=== PATIENT | female | born 1935 | race Caucasian/White ===

== ENCOUNTER 2016-12-10 08:43 | Emergency (ER) | END 2016-12-10 12:22 | disposition home or self-care (01) | DX: B02.9 Zoster without complications (principal) ==

== ENCOUNTER 2016-12-14 09:12 | Emergency (ER) | payer OTHER ==
[~2016-12-14] VITALS: Ht 160 cm; Wt 65.0 kg
[~2016-12-14 09:12] MED LIST: DOCU-144 PO; FAMO-18 PO; GABA300C16 PO
[2016-12-14 09:21] VITALS: Ht 160 cm; Wt 65.0 kg
[2016-12-14] MEDS ORDERED: HYDR-906 PO (10:32)
[2016-12-14] MEDS ORDERED: CEPH-443 PO (10:32)
[2016-12-14] MEDS ORDERED: ACYC800T57 PO (10:32)
--- NOTE | 2016-12-14 11:03 | ERD ---
ER Documentation Chief Complaint Date/Time DATE: 12/14/16 TIME: 10:55 Chief Complaint RASH ON BACK AND RADIATES TO HER BREAST HPI This is an 81-year-old female brought into the ER by daughter for evaluation of her rash. Patient states on 11/25/2016 she developed a painful and pruritic rash to mid upper back that spread to her right breast. Patient describes pain as burning sensation. Patient was seen previously by her primary care provider who prescribed her acyclovir cream and Celeste. He patient states then she was seen here 2 days ago and was prescribed Neurontin. Patient denies any discharge from lesions. No fevers or chills. ROS All systems reviewed and are negative except as per history of present illness. Medications Home Meds Active Scripts Hydrocodone/Acetaminophen (Celeste 5-325 Tablet) 1 Each Tablet, 1 TAB PO Q6H Y for PAIN, #7 TAB Prov:ISAURA ALCANTAR NP 12/14/16 Cephalexin* (Keflex*) 500 Mg Capsule, 500 MG PO QID for 5 Days, CAP Prov:ISAURA ALCANTAR NP 12/14/16 Acyclovir* (Zovirax*) 800 Mg Tablet, 800 MG PO 5 TIMES DAILY for 7 Days, TAB Prov:ISAURA ALCANTAR NP 12/14/16 Gabapentin* (Gabapentin*) 300 Mg Capsule, 300 MG PO QAM, #30 CAP Take one tab on day 1, take BID on day 2, then TID thereafter Prov:JENS TERRAZAS MD 12/10/16 Reported Medications Famotidine* (Pepcid*) 20 Mg Tablet, 20 MG PO DAILY, TAB 11/16/14 Docusate Sodium* (Colace*) 100 Mg Capsule, 100 MG PO QHS, CAP 11/16/14 Allergies Allergies: Coded Allergies: No Known Allergy (Verified , 11/21/14) PMhx/Soc History of Surgery: Yes (TUBAL LIGATION) Anesthesia Reaction: No Hx Neurological Disorder: Yes ("DIZZINESS") Hx Respiratory Disorders: No Hx Cardiac Disorders: No Hx Psychiatric Problems: No Hx Miscellaneous Medical Probl: No Hx Alcohol Use: No Hx Substance Use: No Hx Tobacco Use: No Smoking Status: Never smoker Physical Exam Vitals Vital Signs Date Time Temp Pulse Resp B/P Pulse Ox O2 Delivery O2 Flow Rate FiO2 12/14/16 09:21 97.8 89 18 136/60 97 Physical Exam Const: No acute distress, alert, oriented to person place and time. Head: Atraumatic Eyes: Normal Conjunctiva ENT: Normal External Ears, Nose and Mouth. Neck: Full range of motion..~ No meningismus. Resp: Clear to auscultation bilaterally Cardio: Regular rate and rhythm, no murmurs Abd: Soft, non tender, non distended. Normal bowel sounds Skin: Grouped erythematous vesicles crusted over to mid upper back that has spread to right breast. Does not cross midline. Erythematous halo surrounding vesicles. No discharge. Back: No midline or flank tenderness Ext: No cyanosis, or edema Neur: Awake and alert Psych: Normal Mood and Affect Procedures/MDM ED COURSE: The patient was stable throughout ED course. I kept the patient and/or family informed of laboratory and diagnostic imaging results throughout the ED course. MDM: 81-year-old female presents emergency department for evaluation of rash. Patient states she noticed the rash about 3 weeks ago. Was previously treated for shingles by her primary care provider with acyclovir cream and Celeste for pain. Was seen here 4 days ago and was given prescription for Neurontin for pain. Patient continues to have pain however rash to appears to have crusted over. Physical exam consistent with herpes zoster infection. No fevers or chills. Differential diagnosis includes but not limited to herpes zoster, bacterial superinfection, eczema, allergic dermatitis, contact dermatitis, insect bite, atrophic dermatitis and fungal infection. Patient likely has herpes zoster with possible bacterial superinfection. Patient will be treated for both. Patient is appropriate for outpatient management will be given prescription for acyclovir and Keflex. Instructed patient and daughter to follow-up with primary care provider in the next 24-48 hours for reassessment and additional management. Return to ED for any high fever, chest pain, difficulty breathing, shortness breath, wheezing, vomiting, diarrhea, abdominal pain or any new or worsening symptoms. Patient and patient's daughter verbalizes understanding. All questions answered at discharge. Departure Diagnosis: Primary Impression: Herpes zoster Herpes zoster complications: without complications Qualified Code: B02.9 - Herpes zoster without complication Condition: Stable Patient Instructions: Shingles (Herpes Zoster) [facility] Usted se franco hecho un examen mdico de control que le indica que no est en vane condicin que requiera tratamiento urgente en el Departamento de Emergencia. Un estudio ms profundo y el tratamiento de bright condicin pueden esperar sin ningn riesgo hasta que usted sea atendida/o en el consultorio de bright mdico o vane cl christiana. Es responsabilidad suya arreglar vane rosalina para el seguimiento del mary alice. MANEJO DE CONDICIONES NO URGENTES EN EL FUTURO 1) Si usted tiene un mdico de atencin primaria: Usted debera llamar a bright mdico de atencin primaria antes de venir al departamento de emergencia. Despus de las horas de consultorio, bright doctor o bright asociado/a est disponible por telfono. El mdico o enfermero de danilo en el servicio telefnico puede asesorarle por bonita medio para atender el problema, o mary alice contrario se puede programar vane rosalina. 2) Si usted no tiene un mdico de atencin primaria: Llame al mdico o clnica de referencia que aparece abajo kirill las horas de consultorio para hacer vane rosalina para que le vean. CLINICAS: [facility] [phone] [facility] [facility] [phone] [address] [facility]. [facility] [phone] [facility] [place] [id number] [phone] [facility] [place] [id number] [phone] [facility]. [phone] [facility] () Usted se franco hecho un examen mdico de control que le indica que no est en vane condicin que requiera tratamiento urgente en el Departamento de Emergencia. Un estudio ms profundo y el tratamiento de bright condicin pueden esperar sin ningn riesgo hasta que usted sea atendida/o en el consultorio de bright mdico o vane cl christiana. Es responsabilidad suya arreglar vane rosalina para el seguimiento del mary alice. MANEJO DE CONDICIONES NO URGENTES EN EL FUTURO 1) Si usted tiene un mdico de atencin primaria: Usted debera llamar a bright mdico de atencin primaria antes de venir al departamento de emergencia. Despus de las horas de consultorio, bright doctor o bright asociado/a est disponible por telfono. El mdico o enfermero de danilo en el servicio telefnico puede asesorarle por bonita medio para atender el problema, o mary alice contrario se puede programar vane rosalina. 2) Si usted no tiene un mdico de atencin primaria: Llame al mdico o condado institucions de referencia que aparece abajo kirill las horas de consultorio para hacer vane rosalina para que le vean. SI USTED NO PUEDE PAGAR PARA PETER UN MEDICO puede ir a: [facility] [address] [place] [address] [facility] [address] [place] [address] [facility] [address] [place] [address] [facility]A [facility] [address] [place], [place] [id number] Additional Instructions: Llame al doctor MAANA y taras vane ROSALINA PARA DENTRO DE 2-3 NOLASCO.Dgale a la secretaria que nosotros le instruimos hacer esta rosalina.Avise o llame si bright condicin se empeora antes de la rosalina. Regresa aqui si peor o no mejor. Return to ED for any high fever, chest pain, difficulty breathing, shortness breath, wheezing, vomiting, diarrhea, abdominal pain or any new or worsening symptoms. ISAURA ALCANTAR NP Dec 14, 2016 11:03
== END 2016-12-14 11:00 | disposition home or self-care (01) ==
LOC: FTE 09:12
DX: B02.9 Zoster without complications (principal)
CPT/HCPCS: 99284

== ENCOUNTER 2017-01-08 08:39 | Inpatient (IN) | payer OTHER ==
[~2017-01-08] VITALS: Ht 162.6 cm; Wt 68.2 kg
[~2017-01-08 08:39] MED LIST changes: +ACYC800T57 PO; +CEPH-443 PO; +HYDR-906 PO
[2017-01-08 08:58] VITALS: Ht 162.6 cm; Wt 68.2 kg
[2017-01-08] MEDS ORDERED: AZITHROMYCIN 250 MG TAB PO ONE (09:30)
[2017-01-08] MEDS ORDERED: SOD CHLORIDE 0.9% 1,000 ML IV STA (09:31)
[2017-01-08] MEDS ORDERED: SODIUM CHLORIDE 0.9% 1L BAG IV* STA (09:32)
--- NOTE | 2017-01-08 09:53 | RADRPT ---
PROCEDURE: XR Chest. CLINICAL INDICATION: Cough. TECHNIQUE: Single frontal view of the chest was obtained. COMPARISON: 11/16/2014 FINDINGS: There is unchanging cardiomegaly with slight shift of the mediastinum to the right secondary to amadou ed elevation of the left hemidiaphragm which appears longstanding. There is calcification in the tho racic aorta. There is compressive atelectasis at the left lung base. No focal airspace consolidati on is seen. The osseous structures appear unremarkable. IMPRESSION: 1. Cardiomegaly and aortic atherosclerosis. 2. Vascular crowding at the left lung base. 3. No confluent airspace process seen. 4. Longstanding elevation of the left hemidiaphragm. RPTAT: AACC Physician Thomas Date Time Electronically viewed and signed by Milan Hampton Physician on 01/08/2017 09:53 /
[2017-01-08 09:59] LABS: ADD SCAN DIFF NO
[2017-01-08] MEDS ORDERED: DILTIAZEM 25 MG INJ IV ONE (10:00)
[2017-01-08 10:04] LABS: BASOPHILS % 0.4 % (0.0-2.0); EOSINOPHILS # 0.2 10^3/ul (0.0-0.5); EOSINOPHILS % 2.3 % (0.0-7.0); HEMATOCRIT 42.7 % (37.0-47.0); HEMOGLOBIN 13.5 g/dl (12.0-16.0); LYMPHOCYTES # 2.3 10^3/ul (0.8-2.9); LYMPHOCYTES % 25.4 % (15.0-51.0); MEAN CORPUSCULAR HEMOGLOBIN 28.8 pg (29.0-33.0); MEAN CORPUSCULAR HGB CONC 31.6 g/dl (32.0-37.0); MONOCYTE # 0.4 10^3/ul (0.3-0.9); MONOCYTES % 4.5 % (0.0-11.0); NEUTROPHIL # 6.1 10^3/ul (1.6-7.5); NEUTROPHILS % 67.1 % (39.0-77.0); PLATELET COUNT 286 10^3/UL (140-415); RED BLOOD COUNT 4.69 10^6/ul (4.20-5.40); RED CELL DISTRIBUTION WIDTH 13.2 % (11.5-14.5); WHITE BLOOD COUNT 9.2 10^3/ul (4.8-10.8)
[2017-01-08 10:26] LABS: INR 0.95; PARTIAL THROMBOPLASTIN TIME 29.3 Sec (25.0-35.0); PROTIME 12.7 Sec (12.2-14.2)
[2017-01-08 10:27] LABS: CHLORIDE 102 mmol/L (97-110); POTASSIUM 3.9 mmol/L (3.5-5.1); SODIUM 141 mmol/L (135-144)
[2017-01-08 10:29] LABS: D-DIMER 1524.65 ng/ml (<460)
[2017-01-08 10:30] LABS: ANION GAP 16 (8-16); CARBON DIOXIDE 27 mmol/L (21-31); CREATININE 0.54 mg/dl (0.44-1.00)
[2017-01-08 10:31] LABS: BLOOD UREA NITROGEN 16 mg/dl (7-20); CALCIUM 8.6 mg/dl (8.4-10.2); GLUCOSE 127 mg/dl (70-220)
[2017-01-08 10:48] LABS: TROPONIN-I < 0.012 ng/ml (0.00-0.12)
[2017-01-08] MEDS ORDERED: ONDANSETRON 4 MG INJ IV PRN (12:00)
[2017-01-08] MEDS ORDERED: ACETAMINOPHEN 325 MG TAB PO PRN (12:00)
[2017-01-08] MEDS ORDERED: SOD CHLORIDE 0.9% 100 ML ONE (12:13)
[2017-01-08] MEDS ORDERED: IODIXANOL LOCM 100 ML BTL ONE (12:13)
[2017-01-08] MEDS ORDERED: IODIXANOL LOCM 50 ML BTL ONE (12:14)
--- NOTE | 2017-01-08 13:01 | RADRPT ---
PROCEDURE: CT angiogram of the chest with contrast. CLINICAL INDICATION: Shortness of breath TECHNIQUE: CT scan of the chest with contrast was performed on a multidetector high-resolution CT scan. The patient was scanned following the uncomplicated intravenous administration of 115 ml of V isipaque 320. Coronal and sagittal reformatted images were obtained from the axial source images. [facility] CT angiogram of the chest with contrast protocols were performed. The total exam CTDI equals 11.04 mGy and the total exam DLP equals 455.35 mGy-cm. One or more of the following dose reduction techniques were used: - Automated exposure control. - Adjustment of the mA and/or kV according to patient size. Use of iterative reconstruction technique. 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 Extending into the left hemithorax under the left hemidiaphragm is sto mach large bowel and abdominal fat. The pulmonary outflow tract, right left main pulmonary arteries and right and left interlobar or pulmonary arteries are unremarkable without central pulmonary embo li. There is mild atherosclerotic vascular disease of the thoracic and proximal abdominal aorta wit hout aneurysm dissection or periaortic fluid collections. The brachial cephalic artery and right le ft common carotid arteries and vertebral arteries appear unremarkable. Mild atherosclerotic vascula r disease of the right left subclavian arteries which are otherwise unremarkable. There is no evidence of mediastinal hilar or axillary lymphadenopathy. There is right hilar calcifi ed lymph node. No evidence of pleural effusions or pneumothoraces. The heart is within normal limi ts in size without pericardial effusion. There is coronary artery disease present. There is atelec tasis involving the right middle lobe, lingula of the left upper lobe and both lower lobes. No evid ence of pulmonary nodules bilaterally. There is bilateral moderate hydronephrosis and recommend cli nical correlation. The remainder of the images of the upper abdomen are unremarkable. There are de generative changes of the thoracic and upper lumbar spine. IMPRESSION: 1. No evidence of central pulmonary emboli. 2. Atherosclerotic vascular disease of the aorta without aneurysm dissection or periaortic fluid co llections. 3. 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 4. Right middle lobe, right lower lobe, lingula left upper lobe and both lower lobes. No evidence of acute infiltrates or pulmonary nodules. 5. No evidence of thoracic lymphadenopathy, effusions or pneumothorax. 6. Bilateral moderate hydronephrosis and recommend clinical correlation. RPTAT:AAJJ Physician Cr Date Time Electronically viewed and signed by Miki Andersen Physician on 01/08/2017 13:01 BM/
--- NOTE | 2017-01-08 13:46 | ERA ---
ER Documentation Chief Complaint Date/Time DATE: 01/08/17 TIME: 13:44 Chief Complaint FLU-LIKE SX X4 DAYS HPI Patient is a 81-year-old female with no medical problems who presents with breath. The patient had fever and cough for about 1 week. She has not taken any medicines. She does feel dizzy as well. She does not know the name of her primary doctor. Upon review of old medical record she does have previous visits to the emergency department. ROS All systems reviewed and are negative except as per history of present illness. Medications Home Meds Active Scripts Hydrocodone/Acetaminophen ([place] 5-325 Tablet) 1 Each Tablet, 1 TAB PO Q6H Y for PAIN, #7 TAB Prov:ISAURA ALCANTAR NP 12/14/16 Gabapentin* (Gabapentin*) 300 Mg Capsule, 300 MG PO QAM, #30 CAP Take one tab on day 1, take BID on day 2, then TID thereafter Prov:JENS TERRAZAS MD 12/10/16 Reported Medications Famotidine* (Pepcid*) 20 Mg Tablet, 20 MG PO DAILY, TAB 11/16/14 Docusate Sodium* (Colace*) 100 Mg Capsule, 100 MG PO QHS, CAP 11/16/14 Discontinued Scripts Cephalexin* (Keflex*) 500 Mg Capsule, 500 MG PO QID for 5 Days, CAP Prov:ISAURA ALCANTAR NP 12/14/16 Acyclovir* (Zovirax*) 800 Mg Tablet, 800 MG PO 5 TIMES DAILY for 7 Days, TAB Prov:ISAURA ALCANTAR NP 12/14/16 Allergies Allergies: Coded Allergies: No Known Allergy (Verified , 01/08/17) PMhx/Soc History of Surgery: Yes (TUBAL LIGATION) Anesthesia Reaction: No Hx Neurological Disorder: Yes ("DIZZINESS") Hx Respiratory Disorders: No Hx Cardiac Disorders: Yes (htn) Hx Psychiatric Problems: No Hx Miscellaneous Medical Probl: Yes (dm) Hx Alcohol Use: No Hx Substance Use: No Hx Tobacco Use: No Smoking Status: Never smoker FmHx Family History: No diabetes Physical Exam Vitals Vital Signs Date Time Temp Pulse Resp B/P Pulse Ox O2 Delivery O2 Flow Rate FiO2 01/08/17 12:52 81 20 123/59 99 Nasal Cannula 2.0 01/08/17 10:05 89 20 106/57 99 Nasal Cannula 01/08/17 08:58 97.8 120 24 171/121 92 Physical Exam Const: Mild distress Head: Atraumatic Eyes: Normal Conjunctiva ENT: Normal External Ears, Nose and Mouth. Neck: Full range of motion..~ No meningismus. Resp: Clear to auscultation bilaterally Cardio: Tachycardic rate with irregular rhythm Abd: Soft, non tender, non distended. Normal bowel sounds Skin: No petechiae or rashes Back: No midline or flank tenderness Ext: No cyanosis, or edema Neur: Awake and alert Psych: Normal Mood and Affect Result Diagram: 01/08/17 0940 01/08/17 0940 Results 24 hrs Laboratory Tests Test 01/08/17 09:40 01/08/17 11:40 Activated Partial Thromboplast Time 29.3Sec Anion Gap 16 Basophils # 0.010^3/ul Basophils % 0.4% Blood Urea Nitrogen 16mg/dl Calcium Level 8.6mg/dl Carbon Dioxide Level 27mmol/L Chloride Level 102mmol/L Creatinine 0.54mg/dl D-Dimer 1524.65ng/ml D-Dimer Comment Eosinophils # 0.210^3/ul Eosinophils % 2.3% Glucose Level 127mg/dl Hematocrit 42.7% Hemoglobin 13.5g/dl INR International Normalized Ratio 0.95 Lactic Acid Level 2.8mmol/L 1.0mmol/L Lymphocytes # 2.310^3/ul Lymphocytes % 25.4% Mean Corpuscular Hemoglobin 28.8pg Mean Corpuscular Hemoglobin Concent 31.6g/dl Mean Corpuscular Volume 91.0fl Mean Platelet Volume 9.0fl Monocytes # 0.410^3/ul Monocytes % 4.5% Neutrophils # 6.110^3/ul Neutrophils % 67.1% Nucleated Red Blood Cells # 0.010^3/ul Nucleated Red Blood Cells % 0.0/100WBC Platelet Count 91729^3/UL Potassium Level 3.9mmol/L Prothrombin Time 12.7Sec Prothrombin Time Ratio 1.0 Red Blood Count 4.6910^6/ul Red Cell Distribution Width 13.2% Sodium Level 141mmol/L Troponin I < 0.012ng/ml White Blood Count 9.210^3/ul Current Medications Medications (Trade) Dose Ordered Sig/Jennifer Route PRN Reason Start Time Stop Time Status Last Admin Dose Admin Azithromycin 500 mg 500 mg ONCE ONCE PO 01/08/17 09:30 01/08/17 09:31 DC 01/08/17 09:49 Sodium Chloride (NS) 1,000 ml @ 1,000 mls/hr Q1H STAT IV 01/08/17 09:31 01/08/17 09:32 DC Diltiazem HCl (Cardizem Iv) 10 mg ONCE ONCE IV 01/08/17 10:00 01/08/17 10:01 DC 01/08/17 09:52 Sodium Chloride (NS) 2,110 ml BOLUS OVER 2 HOURS STAT IV* 01/08/17 09:32 01/08/17 09:33 DC 01/08/17 09:50 Ondansetron HCl (Zofran Inj) 4 mg ER BRIDGE PRN IV NAUSEA AND/OR VOMITING 01/08/17 12:00 01/09/17 11:59 Acetaminophen (Tylenol Tab) 650 mg ER BRIDGE PRN PO MILD PAIN/FEVER 01/08/17 12:00 01/09/17 11:59 IV Flush 10 ml 10 ml STK-MED ONCE .ROUTE 01/08/17 12:13 01/08/17 12:14 DC 01/08/17 12:35 Sodium Chloride (NS) 100 ml @ ud STK-MED ONCE .ROUTE 01/08/17 12:13 01/08/17 12:14 DC 01/08/17 12:35 Iodixanol (Visipaque Locm) 100 ml STK-MED ONCE .ROUTE 01/08/17 12:13 01/08/17 12:14 DC 01/08/17 12:42 Iodixanol (Visipaque Locm) 50 ml STK-MED ONCE .ROUTE 01/08/17 12:14 01/08/17 12:15 DC 01/08/17 12:44 Procedures/MDM EKG read by me: Rate/Rhythm: Irregular rhythm with tachycardic rate Intervals: Normal Impression: Atrial fibrillation without ischemia CT shows no obvious pneumonia per radiology. CTA of the chest shows no pneumonia or pulmonary embolism or aortic dissection per radiology. Patient is a 81-year-old female presents with acute rapid atrial fibrillation. The patient was given fluids and diltiazem and her heart rate has improved. I spoke with Dr. Abarca for admission of the patient has had physicians IPA. The patient will be admitted to a telemetry bed. At this point there is no sign of infection and I doubt sepsis. Her initial lactic acid was 2.8 but repeat was 1.0. Critical Care: Time: 35 minutes excluding all billable procedures. Treatments/Evaluations: Close monitoring and treatment of unstable vital signs, cardiorespiratory, and neurologic status, while maintaining tight balance of fluid, respiratory, and cardiac interventions. Departure Diagnosis: Primary Impression: Rapid atrial fibrillation Additional Impression: SOB (shortness of breath) Condition: AURE King MD Jan 08, 2017 13:45
[2017-01-08 14:30] VITALS: TEMP 97.9
[2017-01-08 17:37] VITALS: BP 130/72; PULSE 78; RESP 19
[2017-01-08] MEDS ORDERED: ASPIRIN 325 MG TAB PO ONE (18:00)
[2017-01-08 18:19] VITALS: PULSE 96
[2017-01-08 19:49] VITALS: BP 125/59; RESP 16
--- NOTE | 2017-01-08 20:14 | HP ---
Date/Time of Note Date/Time of Note DATE: 01/08/17 TIME: 20:07 Assessment/Plan VTE Prophylaxis VTE Prophylaxis Intervention: other Lines/Catheters IV Catheter Type (from Nrs): Saline Lock Urinary Cath still in place: No Assessment/Plan Assessment/Plan Rapid atrial fibrillation - cardiology consult - Dr Orozco Shortness of BREATH - on o2 2 lnc, feels better. HPI/ROS Admit Date/Time Admit Date/Time Jan 08, 2017 at 11:46 Hx of Present Illness FLU-LIKE SX X4 DAYS HPI Patient is a 81-year-old female with no medical problems who presents with breath. The patient had fever and cough for about 1 week. She has not taken any medicines. She does feel dizzy as well. She does not know the name of her primary doctor. Upon review of old medical record she does have previous visits to the emergency department. ROS All systems reviewed and are negative except as per history of present illness. Medications Home Meds Active Scripts Hydrocodone/Acetaminophen ([place]va 5-325 Tablet) 1 Each Tablet, 1 TAB PO Q6H Y for PAIN, #7 TAB Prov:ISAURA ALCANTAR NP 12/14/16 Gabapentin* (Gabapentin*) 300 Mg Capsule, 300 MG PO QAM, #30 CAP Take one tab on day 1, take BID on day 2, then TID thereafter Prov:JENS TERRAZAS MD 12/10/16 Reported Medications Famotidine* (Pepcid*) 20 Mg Tablet, 20 MG PO DAILY, TAB 11/16/14 Docusate Sodium* (Colace*) 100 Mg Capsule, 100 MG PO QHS, CAP 11/16/14 Discontinued Scripts Cephalexin* (Keflex*) 500 Mg Capsule, 500 MG PO QID for 5 Days, CAP Prov:ISAURA ALCANTAR NP 12/14/16 Acyclovir* (Zovirax*) 800 Mg Tablet, 800 MG PO 5 TIMES DAILY for 7 Days, TAB Prov:ISAURA ALCANTAR NP 12/14/16 Allergies Allergies: Coded Allergies: No Known Allergy (Verified , 01/08/17) PMhx/Soc History of Surgery: Yes (TUBAL LIGATION) Anesthesia Reaction: No Hx Neurological Disorder: Yes ("DIZZINESS") Hx Respiratory Disorders: No Hx Cardiac Disorders: Yes (htn) Hx Psychiatric Problems: No Hx Miscellaneous Medical Probl: Yes (dm) Hx Alcohol Use: No Hx Substance Use: No Hx Tobacco Use: No Smoking Status: Never smoker FmHx Family History: No diabetes PMH/Family/Social Social History Smoking Status: Former smoker Exam/Review of Systems Vital Signs Vitals Vital Signs Date Time Temp Pulse Resp B/P Pulse Ox O2 Delivery O2 Flow Rate FiO2 01/08/17 19:49 98.6 79 16 125/59 93 01/08/17 17:56 Nasal Cannula 2.0 Exam Constitutional: alert, oriented, well developed Psych: nl mood/affect Head: atraumatic Eyes: EOMI, PERRL, nl sclera ENMT: nl external ears & nose Neck: non-tender Respiratory: clear to auscultation Cardiovascular: nl pulses Gastrointestinal: non-tender, soft Musculoskeletal: nl extremities to inspection Neurological: nl mental status, nl speech Skin: nl turgor Lymph: nontender Labs Result Diagram: 01/08/17 0940 01/08/17 0940 Medications Medications Current Medications Procedures Procedures EKG read by me: Rate/Rhythm: Irregular rhythm with tachycardic rate Intervals: Normal Impression: Atrial fibrillation without ischemia CT shows no obvious pneumonia per radiology. CTA of the chest shows no pneumonia or pulmonary embolism or aortic dissection per radiology. LUIS MANUEL RAMIREZ Jan 08, 2017 20:14
[2017-01-08 20:17] VITALS: PULSE 77
[2017-01-08] MEDS ORDERED: HYDROCODONE/APAP (5/325) TAB PO PRN (20:30)
[2017-01-08 20:41] LABS: CK-MB 1.88 ng/ml (0.0-2.4)
[2017-01-08 20:44] LABS: TROPONIN-I 0.043 ng/ml (0.00-0.12)
[2017-01-08] MEDS: GABAPENTIN 300 MG CAP PO SCH (21:36)
[2017-01-08] MEDS: FAMOTIDINE 20 MG TAB PO SCH (21:37)
[2017-01-08] MEDS: DOCUSATE SODIUM 100 MG CAP PO SCH (21:37)
[2017-01-08] MEDS: METOPROLOL 25 MG TAB PO SCH (21:37)
[2017-01-08 22:41] LABS: CK-MB 1.83 ng/ml (0.0-2.4)
[2017-01-08 22:44] LABS: TROPONIN-I 0.038 ng/ml (0.00-0.12)
[2017-01-08 23:49] VITALS: BP 122/57; RESP 16
[2017-01-09] VITALS (11 sets, daily range): BP systolic 117–131; BP diastolic 57–79; PULSE 66–91; RESP 20–22
[2017-01-09 07:57] LABS: ADD SCAN DIFF NO
[2017-01-09 08:18] LABS: BASOPHILS % 0.5 % (0.0-2.0); EOSINOPHILS # 0.2 10^3/ul (0.0-0.5); EOSINOPHILS % 2.7 % (0.0-7.0); HEMATOCRIT 37.4 % (37.0-47.0); HEMOGLOBIN 11.4 g/dl (12.0-16.0); LYMPHOCYTES # 2.3 10^3/ul (0.8-2.9); LYMPHOCYTES % 27.2 % (15.0-51.0); MEAN CORPUSCULAR HGB CONC 30.5 g/dl (32.0-37.0); MEAN CORPUSCULAR VOLUME 95.2 fl (82.0-101.0); MONOCYTE # 0.6 10^3/ul (0.3-0.9); MONOCYTES % 7.4 % (0.0-11.0); NEUTROPHIL # 5.1 10^3/ul (1.6-7.5); NEUTROPHILS % 61.8 % (39.0-77.0); PLATELET COUNT 233 10^3/UL (140-415); RED BLOOD COUNT 3.93 10^6/ul (4.20-5.40); RED CELL DISTRIBUTION WIDTH 13.2 % (11.5-14.5); WHITE BLOOD COUNT 8.3 10^3/ul (4.8-10.8)
[2017-01-09] MEDS: FAMOTIDINE 20 MG TAB PO SCH (08:52)
[2017-01-09] MEDS: GABAPENTIN 300 MG CAP PO SCH (08:52)
[2017-01-09] MEDS: METOPROLOL 25 MG TAB PO SCH ×2 (08:53→21:26)
[2017-01-09] MEDS ORDERED: ENOXAPARIN 40 MG/0.4 ML SYG SC SCH (09:00)
--- NOTE | 2017-01-09 12:18 | RADRPT ---
Echocardiogram Report Patient Name: MARIA M NOBLES Gender: Female Date: 1935 Study Date: 09-Jan-2017 Field Sales Executive: Yamileth Marie RDCS Location: 520 Ref. Physician: AYDE GALE Quality: Technically Difficult Study Procedures: Transthoracic echocardiogram with complete 2D, M-Mode, and doppler examination. Indications: Atrial Fibrillation with RVR. 2D/M Mode Doppler Measurement Value Normal Ranges Measurement Value Normal Ranges LVIDd 2D 4.7 3.5 - 5.6 cm AV Peak Reinier 1.0 m/sec LVIDs 2D 2.8 2.1 - 4.1 cm AV Peak PG 4.1 mmHg LVPWd 2D 0.9 0.6 - 1.1 cm LVOT Peak Reinier 0.8 m/sec IVSd 2D 0.9 0.6 - 1.1 cm LVOT Peak PG 2.6 mmHg AoR Diam 2D 2.7 2.0 - 3.7 cm MV E Peak Reinier 0.6 m/sec EDV 2D 102.5 cm3 MV A Peak Reinier 0.7 m/sec ESV 2D 22.0 cm3 MV E/A 0.9 LA Dimen 2D 3.4 2.3 - 4.0 cm MV Decel Time 182 msec MV Decel Hendry 3 MV E/A 0.9 TR Peak Reinier 2.8 m/sec TR Peak PG 31.4 mmHg RVSP 34.0 mmHg Findings Left Ventricle: Normal left ventricular systolic function. Normal left ventricular cavity size. Normal left ventricular wall thickness. Ejection fraction is visually estimated at 60 %. Tissue Doppler/Mitral Doppler indices are consistent with impaired relaxation (Stage I diastolic dysfunction). Right Ventricle: Normal right ventricular size. Normal right ventricular systolic function. Left Atrium: The left atrium is normal in size. Right Atrium: The right atrium is normal in size. Mitral Valve: Normal appearance and function of the mitral valve with trace physiologic regurgitation. Aortic Valve: Normal appearance of the aortic valve. No significant aortic stenosis or insufficiency. Tricuspid Valve: Tricuspid valve not well visualized. Estimated peak PA systolic pressure 34 mmHg. There is trace tricuspid regurgitation. Pulmonic Valve: There is trace pulmonic regurgitation. Pericardium: Normal pericardium with no significant pericardial effusion. Aorta: Normal aortic root. IVC: Normal size and normal respiratory collapse consistent with normal right atrial pressure. Conclusions 1.Normal left ventricular systolic function. Normal left ventricular cavity size. Normal left ventricular wall thickness. Ejection fraction is visually estimated at 60 %. Tissue Doppler/Mitral Doppler indices are consistent with impaired relaxation (Stage I diastolic dysfunction). 2.Normal right ventricular size. Normal right ventricular systolic function. 3.The left atrium is normal in size. 4.The right atrium is normal in size. 5.No significant valvular stenosis or regurgitation seen. 6.Normal pericardium with no significant pericardial effusion. Electronically Signed By: Teo Montana 09-Jan-2017 12:17:52 -0800 Patient Name: MARIA M NOBLES Study Date: 09-Jan-2017 [id number]
--- NOTE | 2017-01-09 16:07 | PN ---
Date/Time of Note Date/Time of Note DATE: 01/09/17 TIME: 16:03 Assessment/Plan VTE Prophylaxis VTE Prophylaxis Intervention: SCD's Lines/Catheters IV [facility] Saline Lock Urinary Cath still in place: No Assessment/Plan Assessment/Plan - Atrial fibrillation with rapid ventricular response, Dr. Orozco will be following patient in cardiology consultation. Patient is currently in sinus rhythm. - Possible bronchitis, continue antibiotics and pancreatitis antitussives. -Elevated d-dimer. CTA chest is negative for PE Further recommendations based on clinical course. Plan of care discussed with Dr. Abarca. Subjective 24 Hr Interval Summary Free Text/Dictation Patient's complains of productive cough, denies any fever chills. Exam/Review of Systems Vital Signs Vitals Vital Signs Date Time Temp Pulse Resp B/P Pulse Ox O2 Delivery O2 Flow Rate FiO2 01/09/17 15:50 98.1 67 20 117/79 97 01/08/17 20:00 Nasal Cannula 2.0 Intake and Output 01/08/17 01/08/17 01/09/17 15:00 23:00 07:00 Intake Total 300 ml Balance 300 ml Exam Constitutional: alert, oriented Psych: no complaints Head: atraumatic, normocephalic Eyes: nl conjunctiva ENMT: nl external ears & nose Neck: non-tender, supple Respiratory: clear to auscultation, normal air movement Cardiovascular: nl pulses, regular rate and rhythm Gastrointestinal: non-tender, soft Musculoskeletal: nl extremities to inspection Extremities: normal pulses 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 Results Result Diagram: 01/09/17 0715 01/08/17 0940 Results 24 hrs Laboratory Tests Test 01/08/17 20:03 01/08/17 21:40 01/09/17 07:15 Creatine Kinase 51 53 Creatine Kinase Index 3.7 3.5 Creatinine Kinase MB (Mass) 1.88 1.83 Lactic Acid Level 0.9 Troponin I 0.043 0.038 Basophils # 0.0 Basophils % 0.5 Eosinophils # 0.2 Eosinophils % 2.7 Hematocrit 37.4 Hemoglobin 11.4 L Lymphocytes # 2.3 Lymphocytes % 27.2 Mean Corpuscular Hemoglobin 29.0 Mean Corpuscular Hemoglobin Concent 30.5 L Mean Corpuscular Volume 95.2 Mean Platelet Volume 9.0 Monocytes # 0.6 Monocytes % 7.4 Neutrophils # 5.1 Neutrophils % 61.8 Nucleated Red Blood Cells # 0.0 Nucleated Red Blood Cells % 0.0 Platelet Count 233 Red Blood Count 3.93 L Red Cell Distribution Width 13.2 White Blood Count 8.3 Medications Medications Current Medications Metoprolol Tartrate (Lopressor) 25 mg BID PO Last administered on 01/09/17 08: 53; Admin Dose 25 MG; Start 01/08/17 at 21:00 Acetaminophen (Tylenol Tab) 650 mg Q6H PRN PO PAIN AND OR ELEVATED TEMP; Start 01/08/17 at 18:00 Enoxaparin Sodium (Lovenox) 40 mg DAILY SC Last administered on 01/09/17 09:11 ; Admin Dose 40 MG; Start 01/09/17 at 09:00 Docusate Sodium (Colace) 100 mg QHS PO Last administered on 01/08/17 21:37; Admin Dose 100 MG; Start 01/08/17 at 21:00 Famotidine (Pepcid) 20 mg DAILY PO Last administered on 01/09/17 08:52; Admin Dose 20 MG; Start 01/08/17 at 20:30 Gabapentin (Neurontin) 300 mg QAM PO Last administered on 01/09/17 08:52; Admin Dose 300 MG; Start 01/08/17 at 20:30 Acetaminophen/ Hydrocodone Bitart ([place] (5/325)) 1 tab Q6H PRN PO PAIN; Start 01/08/17 at 20:30 Guaifenesin (Mucinex) 600 mg BID PO ; Start 01/09/17 at 21:00 DORENE AGUIRRE Jan 09, 2017 16:07
[2017-01-09] MEDS: LEVOFLOXACIN 500 MG TAB PO SCH (16:29)
[2017-01-09] MEDS ORDERED: predniSONE 20 MG TAB PO SCH (16:30)
[2017-01-09] MEDS ORDERED: morphine 10 MG INJ IM PRN (19:00)
[2017-01-09 19:28] LABS: POTASSIUM 5.8 mmol/L (3.5-5.1)
[2017-01-09 19:31] LABS: CREATININE 0.7 mg/dl (0.44-1.00)
--- NOTE | 2017-01-09 20:09 | CONS ---
Date/Time of Note Date/Time of Note DATE: 01/09/17 TIME: 20:04 Assessment/Plan Assessment/Plan Problems: (1) Dizziness Status: Acute (2) Abdominal pain Status: Acute (3) SOB (shortness of breath) Status: Acute (4) Rapid atrial fibrillation Status: Acute Additional Assessment/Plan Afib with RVR ( paroxysmal) Now in sinus Echo with normla LVEF Plan to place her on Apixiban 2.5mg BID due to her age d/c tomorrow as per cardiac out pt office f/u Consultation Date/Type/Reason Admit Date/Time Jan 08, 2017 at 11:46 Date of Consultation: Jan 09, 2017 Type of Consultation: Cardiology Reason for Consultation Afib with RVR Hx of Present Illness Patient is 81 year old F with PMH of HTn, HLD, came in wiht palpitaion and CP found to have Afib with RVR and tachcy cardic. now stable in sinus rhtyhm at 80s. No CP or SOB Constitutional: no complaints Psychological: no complaints Past Medical History Medical History: angina Social History Smoking Status: Former smoker Exam/Review of Systems Vital Signs Vitals Vital Signs Date Time Temp Pulse Resp B/P Pulse Ox O2 Delivery O2 Flow Rate FiO2 01/09/17 16:32 66 01/09/17 15:50 98.1 20 117/79 97 01/08/17 20:00 Nasal Cannula 2.0 Intake and Output 01/08/17 01/08/17 01/09/17 15:00 23:00 07:00 Intake Total 300 ml Balance 300 ml Exam Constitutional: alert, oriented, well developed Psych: no complaints Head: normocephalic Eyes: nl conjunctiva ENMT: nl external ears & nose Neck: supple Respiratory: clear to auscultation Cardiovascular: regular rate and rhythm Gastrointestinal: soft Results Result Diagram: 01/09/17 0715 01/09/17 1855 Results 24 hrs Laboratory Tests Test 01/08/17 21:40 01/09/17 07:15 01/09/17 18:55 Creatine Kinase 53 Creatine Kinase Index 3.5 Creatinine Kinase MB (Mass) 1.83 Troponin I 0.038 Basophils # 0.0 Basophils % 0.5 Eosinophils # 0.2 Eosinophils % 2.7 Hematocrit 37.4 Hemoglobin 11.4 L Lymphocytes # 2.3 Lymphocytes % 27.2 Mean Corpuscular Hemoglobin 29.0 Mean Corpuscular Hemoglobin Concent 30.5 L Mean Corpuscular Volume 95.2 Mean Platelet Volume 9.0 Monocytes # 0.6 Monocytes % 7.4 Neutrophils # 5.1 Neutrophils % 61.8 Nucleated Red Blood Cells # 0.0 Nucleated Red Blood Cells % 0.0 Platelet Count 233 Red Blood Count 3.93 L Red Cell Distribution Width 13.2 White Blood Count 8.3 Anion Gap 12 Blood Urea Nitrogen 18 Calcium Level 9.0 Carbon Dioxide Level 34 H Chloride Level 100 Creatinine 0.70 Glucose Level 112 Potassium Level 5.8 H Sodium Level 140 Medications Medications Current Medications Metoprolol Tartrate (Lopressor) 25 mg BID PO Last administered on 01/09/17 08: 53; Admin Dose 25 MG; Start 01/08/17 at 21:00 Acetaminophen (Tylenol Tab) 650 mg Q6H PRN PO PAIN AND OR ELEVATED TEMP; Start 01/08/17 at 18:00 Enoxaparin Sodium (Lovenox) 40 mg DAILY SC Last administered on 01/09/17 09:11 ; Admin Dose 40 MG; Start 01/09/17 at 09:00 Docusate Sodium (Colace) 100 mg QHS PO Last administered on 01/08/17 21:37; Admin Dose 100 MG; Start 01/08/17 at 21:00 Famotidine (Pepcid) 20 mg DAILY PO Last administered on 01/09/17 08:52; Admin Dose 20 MG; Start 01/08/17 at 20:30 Gabapentin (Neurontin) 300 mg QAM PO Last administered on 01/09/17 08:52; Admin Dose 300 MG; Start 01/08/17 at 20:30 Acetaminophen/ Hydrocodone Bitart ([place] (5/325)) 1 tab Q6H PRN PO PAIN Last administered on 01/09/17 18:11; Admin Dose 1 TAB; Start 01/08/17 at 20:30 Guaifenesin (Mucinex) 600 mg BID PO ; Start 01/09/17 at 21:00 Levofloxacin (Levaquin) 500 mg DAILY@06 PO Last administered on 01/09/17 16:29 ; Admin Dose 500 MG; Start 01/09/17 at 15:00 Methylprednisolone Sodium Succinate (Solu-Medrol) 20 mg Q12 IV ; Start 01/09/17 at 21:00 Morphine Sulfate (morphine) 2 mg Q4H PRN IM Pain 7-10; Start 01/09/17 at 19:00 Pantoprazole (Protonix Tab) 40 mg DAILY@06 PO ; Start 01/10/17 at 06:00 TODD GARCIA MD Jan 09, 2017 20:08
[2017-01-09] MEDS ORDERED: NA POLYST SULFON 15 GM/60 ML BTL PO ONE (20:30)
[2017-01-09] MEDS: DOCUSATE SODIUM 100 MG CAP PO SCH (21:00)
[2017-01-09] MEDS: METHYLPREDNISOLONE 40 MG INJ IV SCH (21:24)
[2017-01-09] MEDS: APIXABAN 5 MG TABLET PO SCH (21:24)
[2017-01-09] MEDS: GUAIFENESIN LA 600 MG TABSR PO SCH (21:25)
[2017-01-10] VITALS (13 sets, daily range): BP systolic 138–154; BP diastolic 62–70; PULSE 69–76; RESP 18–20
[2017-01-10 06:13] LABS: ADD SCAN DIFF NO
[2017-01-10 06:28] LABS: BASOPHILS % 0.2 % (0.0-2.0); HEMATOCRIT 39.7 % (37.0-47.0); HEMOGLOBIN 12.4 g/dl (12.0-16.0); LYMPHOCYTES # 1.1 10^3/ul (0.8-2.9); MEAN CORPUSCULAR HEMOGLOBIN 28.8 pg (29.0-33.0); MEAN CORPUSCULAR HGB CONC 31.2 g/dl (32.0-37.0); MEAN CORPUSCULAR VOLUME 92.1 fl (82.0-101.0); MEAN PLATELET VOLUME 8.9 fl (7.4-10.4); MONOCYTE # 0.1 10^3/ul (0.3-0.9); MONOCYTES % 0.9 % (0.0-11.0); NEUTROPHIL # 4.6 10^3/ul (1.6-7.5); NEUTROPHILS % 79.4 % (39.0-77.0); PLATELET COUNT 244 10^3/UL (140-415); RED BLOOD COUNT 4.31 10^6/ul (4.20-5.40); RED CELL DISTRIBUTION WIDTH 12.7 % (11.5-14.5); WHITE BLOOD COUNT 5.8 10^3/ul (4.8-10.8)
[2017-01-10 06:33] LABS: POTASSIUM 4.5 mmol/L (3.5-5.1)
[2017-01-10 06:36] LABS: CREATININE 0.56 mg/dl (0.44-1.00)
[2017-01-10 06:37] LABS: CALCIUM 9.1 mg/dl (8.4-10.2)
[2017-01-10] MEDS: PANTOPRAZOLE (EC) 40 MG TAB PO SCH (08:09)
[2017-01-10] MEDS: APIXABAN 5 MG TABLET PO SCH ×2 (08:09→20:10)
[2017-01-10] MEDS: GABAPENTIN 300 MG CAP PO SCH (08:09)
[2017-01-10] MEDS: FAMOTIDINE 20 MG TAB PO SCH (08:09)
[2017-01-10] MEDS: METHYLPREDNISOLONE 40 MG INJ IV SCH ×2 (08:09→20:09)
[2017-01-10] MEDS: LEVOFLOXACIN 500 MG TAB PO SCH (08:09)
[2017-01-10] MEDS: METOPROLOL 25 MG TAB PO SCH ×2 (08:10→20:10)
[2017-01-10] MEDS: GUAIFENESIN LA 600 MG TABSR PO SCH ×2 (08:10→20:10)
--- NOTE | 2017-01-10 10:36 | PN ---
Date/Time of Note Date/Time of Note DATE: 01/10/17 TIME: 10:36 Assessment/Plan VTE Prophylaxis VTE Prophylaxis Intervention: other Lines/Catheters IV Catheter Type (from [facility]): Saline Lock Urinary Cath still in place: No Assessment/Plan Chief Complaint/Hosp Course - Atrial fibrillation with rapid ventricular response, Dr. Orozco will be following patient in cardiology consultation. Patient is currently in sinus rhythm. - Possible bronchitis, continue antibiotics and pancreatitis antitussives. -Elevated d-dimer. CTA chest is negative for PE Problems: Subjective 24 Hr Interval Summary Free Text/Dictation Patient has no complaints Exam/Review of Systems Vital Signs Vitals Vital Signs Date Time Temp Pulse Resp B/P Pulse Ox O2 Delivery O2 Flow Rate FiO2 01/10/17 10:26 Nasal Cannula 2.0 01/10/17 08:09 73 01/10/17 07:51 98.1 20 138/62 94 Intake and Output 01/09/17 01/09/17 01/10/17 15:00 23:00 07:00 Intake Total 720 ml Balance 720 ml Exam Constitutional: well developed Head: atraumatic, normocephalic Neck: supple Respiratory: clear to auscultation Gastrointestinal: non-tender, soft Extremities: normal pulses Results Result Diagram: 01/10/17 0530 01/10/17 0530 Results 24 hrs Laboratory Tests Test 01/09/17 18:55 01/10/17 05:30 Anion Gap 12 16 Blood Urea Nitrogen 18 15 Calcium Level 9.0 9.1 Carbon Dioxide Level 34 H 28 Chloride Level 100 100 Creatinine 0.70 0.56 Glucose Level 112 134 Potassium Level 5.8 H 4.5 Sodium Level 140 139 Basophils # 0.0 Basophils % 0.2 Eosinophils # 0.0 Eosinophils % 0.0 Hematocrit 39.7 Hemoglobin 12.4 Lymphocytes # 1.1 Lymphocytes % 19.0 Mean Corpuscular Hemoglobin 28.8 L Mean Corpuscular Hemoglobin Concent 31.2 L Mean Corpuscular Volume 92.1 Mean Platelet Volume 8.9 Monocytes # 0.1 L Monocytes % 0.9 Neutrophils # 4.6 Neutrophils % 79.4 H Nucleated Red Blood Cells # 0.0 Nucleated Red Blood Cells % 0.0 Platelet Count 244 Red Blood Count 4.31 Red Cell Distribution Width 12.7 White Blood Count 5.8 # Medications Medications Current Medications Metoprolol Tartrate (Lopressor) 25 mg BID PO Last administered on 01/10/17 08: 10; Admin Dose 25 MG; Start 01/08/17 at 21:00 Acetaminophen (Tylenol Tab) 650 mg Q6H PRN PO PAIN AND OR ELEVATED TEMP; Start 01/08/17 at 18:00 Docusate Sodium (Colace) 100 mg QHS PO Last administered on 01/08/17 21:37; Admin Dose 100 MG; Start 01/08/17 at 21:00 Famotidine (Pepcid) 20 mg DAILY PO Last administered on 01/10/17 08:09; Admin Dose 20 MG; Start 01/08/17 at 20:30 Gabapentin (Neurontin) 300 mg QAM PO Last administered on 01/10/17 08:09; Admin Dose 300 MG; Start 01/08/17 at 20:30 Acetaminophen/ Hydrocodone Bitart ([place] (5/325)) 1 tab Q6H PRN PO PAIN Last administered on 01/09/17 18:11; Admin Dose 1 TAB; Start 01/08/17 at 20:30 Guaifenesin (Mucinex) 600 mg BID PO Last administered on 01/10/17 08:10; Admin Dose 600 MG; Start 01/09/17 at 21:00 Levofloxacin (Levaquin) 500 mg DAILY@06 PO Last administered on 01/10/17 08:09 ; Admin Dose 500 MG; Start 01/09/17 at 15:00 Methylprednisolone Sodium Succinate (Solu-Medrol) 20 mg Q12 IV Last administered on 01/10/17 08:09; Admin Dose 20 MG; Start 01/09/17 at 21:00 Morphine Sulfate (morphine) 2 mg Q4H PRN IM Pain 7-10; Start 01/09/17 at 19:00 Pantoprazole (Protonix Tab) 40 mg DAILY@06 PO Last administered on 01/10/17 08: 09; Admin Dose 40 MG; Start 01/10/17 at 06:00 Apixaban (Eliquis) 2.5 mg BID PO Last administered on 01/10/17 08:09; Admin Dose 2.5 MG; Start 01/09/17 at 21:00 ISABELLE CUNHA 4, 2017 10:36
--- NOTE | 2017-01-10 14:56 | CONS ---
Date/Time of Note Date/Time of Note DATE: 01/10/17 TIME: 14:56 Consult Date/Type/Reason Admit Date/Time Jan 08, 2017 at 11:46 Initial Consult Date 01/09/17 Type of Consultation: Cardiology Objective Vital Signs Date Time Temp Pulse Resp B/P Pulse Ox O2 Delivery O2 Flow Rate FiO2 01/10/17 12:14 75 01/10/17 11:54 97.8 18 142/70 95 01/10/17 10:26 Nasal Cannula 2.0 Intake and Output 01/09/17 01/09/17 01/10/17 15:00 23:00 07:00 Intake Total 720 ml Balance 720 ml Results/Medications Result Diagram: 01/10/17 0530 01/10/17 0530 Results 24 hrs Laboratory Tests Test 01/09/17 18:55 01/10/17 05:30 Anion Gap 12 16 Blood Urea Nitrogen 18 15 Calcium Level 9.0 9.1 Carbon Dioxide Level 34 H 28 Chloride Level 100 100 Creatinine 0.70 0.56 Glucose Level 112 134 Potassium Level 5.8 H 4.5 Sodium Level 140 139 Basophils # 0.0 Basophils % 0.2 Eosinophils # 0.0 Eosinophils % 0.0 Hematocrit 39.7 Hemoglobin 12.4 Lymphocytes # 1.1 Lymphocytes % 19.0 Mean Corpuscular Hemoglobin 28.8 L Mean Corpuscular Hemoglobin Concent 31.2 L Mean Corpuscular Volume 92.1 Mean Platelet Volume 8.9 Monocytes # 0.1 L Monocytes % 0.9 Neutrophils # 4.6 Neutrophils % 79.4 H Nucleated Red Blood Cells # 0.0 Nucleated Red Blood Cells % 0.0 Platelet Count 244 Red Blood Count 4.31 Red Cell Distribution Width 12.7 White Blood Count 5.8 # Medications Current Medications Metoprolol Tartrate (Lopressor) 25 mg BID PO Last administered on 01/10/17 08: 10; Admin Dose 25 MG; Start 01/08/17 at 21:00 Acetaminophen (Tylenol Tab) 650 mg Q6H PRN PO PAIN AND OR ELEVATED TEMP; Start 01/08/17 at 18:00 Docusate Sodium (Colace) 100 mg QHS PO Last administered on 01/08/17 21:37; Admin Dose 100 MG; Start 01/08/17 at 21:00 Famotidine (Pepcid) 20 mg DAILY PO Last administered on 01/10/17 08:09; Admin Dose 20 MG; Start 01/08/17 at 20:30 Gabapentin (Neurontin) 300 mg QAM PO Last administered on 01/10/17 08:09; Admin Dose 300 MG; Start 01/08/17 at 20:30 Acetaminophen/ Hydrocodone Bitart ([place] (5/325)) 1 tab Q6H PRN PO PAIN Last administered on 01/09/17 18:11; Admin Dose 1 TAB; Start 01/08/17 at 20:30 Guaifenesin (Mucinex) 600 mg BID PO Last administered on 01/10/17 08:10; Admin Dose 600 MG; Start 01/09/17 at 21:00 Levofloxacin (Levaquin) 500 mg DAILY@06 PO Last administered on 01/10/17 08:09 ; Admin Dose 500 MG; Start 01/09/17 at 15:00 Methylprednisolone Sodium Succinate (Solu-Medrol) 20 mg Q12 IV Last administered on 01/10/17 08:09; Admin Dose 20 MG; Start 01/09/17 at 21:00 Morphine Sulfate (morphine) 2 mg Q4H PRN IM Pain 7-10; Start 01/09/17 at 19:00 Pantoprazole (Protonix Tab) 40 mg DAILY@06 PO Last administered on 01/10/17 08: 09; Admin Dose 40 MG; Start 01/10/17 at 06:00 Apixaban (Eliquis) 2.5 mg BID PO Last administered on 01/10/17 08:09; Admin Dose 2.5 MG; Start 01/09/17 at 21:00 Assessment/Plan Chief Complaint/Hosp Course Patient is 81 year old F with PMH of HTn, HLD, came in wiht palpitaion and CP found to have Afib with RVR and tachcy cardic. now stable in sinus rhtyhm at 80s. No CP or SOB Problems: Additional Assessment/Plan Pt is stable plan to d/c home as per cardiac contineu abx as per PMD TODD GARCIA MD Jan 10, 2017 14:56
[2017-01-10] MEDS: DOCUSATE SODIUM 100 MG CAP PO SCH (20:09)
[2017-01-10] MEDS: ACETAMINOPHEN 325 MG TAB PO PRN (20:11)
[2017-01-11] VITALS (11 sets, daily range): BP systolic 120–162; BP diastolic 59–70; PULSE 64–71; RESP 16–18
[2017-01-11] MEDS: PANTOPRAZOLE (EC) 40 MG TAB PO SCH (06:08)
[2017-01-11] MEDS: LEVOFLOXACIN 500 MG TAB PO SCH (06:08)
[2017-01-11] MEDS: METOPROLOL 25 MG TAB PO SCH ×2 (08:07→20:24)
[2017-01-11] MEDS: FAMOTIDINE 20 MG TAB PO SCH (08:07)
[2017-01-11] MEDS: GABAPENTIN 300 MG CAP PO SCH (08:07)
[2017-01-11] MEDS: METHYLPREDNISOLONE 40 MG INJ IV SCH ×2 (08:07→20:23)
[2017-01-11] MEDS: APIXABAN 5 MG TABLET PO SCH ×2 (08:08→20:23)
[2017-01-11] MEDS: GUAIFENESIN LA 600 MG TABSR PO SCH ×2 (08:08→20:24)
--- NOTE | 2017-01-11 12:02 | PN ---
Date/Time of Note Date/Time of Note DATE: 01/11/17 TIME: 12:01 Assessment/Plan VTE Prophylaxis VTE Prophylaxis Intervention: other Lines/Catheters IV [facility] Type [facility]from [facility] Saline Lock Urinary Cath still in place: No Assessment/Plan Chief Complaint/Hosp Course - Atrial fibrillation with rapid ventricular response, Dr. Orozco will be following patient in cardiology consultation. Patient is currently in sinus rhythm. - Possible bronchitis, continue antibiotics and pancreatitis antitussives. -Elevated d-dimer. CTA chest is negative for PE Problems: Subjective 24 Hr Interval Summary Free Text/Dictation Patient has no complaints Exam/Review of Systems Vital Signs Vitals Vital Signs Date Time Temp Pulse Resp B/P Pulse Ox O2 Delivery O2 Flow Rate FiO2 01/11/17 11:27 98.3 69 18 128/59 98 01/10/17 10:26 Nasal Cannula 2.0 Intake and Output 01/10/17 01/10/17 01/11/17 15:00 23:00 07:00 Intake Total 850 ml 500 ml Balance 850 ml 500 ml Exam Constitutional: well developed Head: atraumatic, normocephalic Neck: supple Respiratory: clear to auscultation Cardiovascular: regular rate and rhythm Gastrointestinal: non-tender, soft Results Result Diagram: 01/10/1752901/10/17 0530 Medications Medications Current Medications Metoprolol Tartrate (Lopressor) 25 mg BID PO Last administered on 01/11/17 08: 07; Admin Dose 25 MG; Start 01/08/17 at 21:00 Acetaminophen (Tylenol Tab) 650 mg Q6H PRN PO PAIN AND OR ELEVATED TEMP Last administered on 01/10/17 20:11; Admin Dose 650 MG; Start 01/08/17 at 18:00 Docusate Sodium (Colace) 100 mg QHS PO Last administered on 01/10/17 20:09; Admin Dose 100 MG; Start 01/08/17 at 21:00 Famotidine (Pepcid) 20 mg DAILY PO Last administered on 01/11/17 08:07; Admin Dose 20 MG; Start 01/08/17 at 20:30 Gabapentin (Neurontin) 300 mg QAM PO Last administered on 01/11/17 08:07; Admin Dose 300 MG; Start 01/08/17 at 20:30 Acetaminophen/ Hydrocodone Bitart ([place] (5/325)) 1 tab Q6H PRN PO PAIN Last administered on 01/09/17 18:11; Admin Dose 1 TAB; Start 01/08/17 at 20:30 Guaifenesin (Mucinex) 600 mg BID PO Last administered on 01/11/17 08:08; Admin Dose 600 MG; Start 01/09/17 at 21:00 Levofloxacin (Levaquin) 500 mg DAILY@06 PO Last administered on 01/11/17 06:08 ; Admin Dose 500 MG; Start 01/09/17 at 15:00 Methylprednisolone Sodium Succinate (Solu-Medrol) 20 mg Q12 IV Last administered on 01/11/17 08:07; Admin Dose 20 MG; Start 01/09/17 at 21:00 Morphine Sulfate (morphine) 2 mg Q4H PRN IM Pain 7-10; Start 01/09/17 at 19:00 Pantoprazole (Protonix Tab) 40 mg DAILY@06 PO Last administered on 01/11/17 06: 08; Admin Dose 40 MG; Start 01/10/17 at 06:00 Apixaban (Eliquis) 2.5 mg BID PO Last administered on 01/11/17 08:08; Admin Dose 2.5 MG; Start 01/09/17 at 21:00 ISABELLE CUNHA Jan 11, 2017 12:02
[2017-01-11] MEDS: DOCUSATE SODIUM 100 MG CAP PO SCH (20:23)
[2017-01-11] MEDS: ACETAMINOPHEN 325 MG TAB PO PRN (20:27)
[2017-01-12] VITALS (12 sets, daily range): BP systolic 121–164; BP diastolic 45–84; PULSE 59–93; RESP 16–18
[2017-01-12] MEDS: GABAPENTIN 300 MG CAP PO SCH (08:24)
[2017-01-12] MEDS: FAMOTIDINE 20 MG TAB PO SCH (08:24)
[2017-01-12] MEDS: METOPROLOL 25 MG TAB PO SCH ×2 (08:24→21:46)
[2017-01-12] MEDS: APIXABAN 5 MG TABLET PO SCH ×2 (08:24→21:46)
[2017-01-12] MEDS: PANTOPRAZOLE (EC) 40 MG TAB PO SCH (08:25)
[2017-01-12] MEDS: METHYLPREDNISOLONE 40 MG INJ IV SCH (08:25)
[2017-01-12] MEDS: LEVOFLOXACIN 500 MG TAB PO SCH (08:25)
[2017-01-12] MEDS: GUAIFENESIN LA 600 MG TABSR PO SCH ×2 (08:25→23:29)
--- NOTE | 2017-01-12 17:26 | PN ---
Date/Time of Note Date/Time of Note DATE: 01/12/17 TIME: 17:24 Assessment/Plan VTE Prophylaxis VTE Prophylaxis Intervention: SCD's Lines/Catheters IV C[facility]ter Type (from [facility]): Saline Lock Urinary Cath still in place: No Assessment/Plan Chief Complaint/Hosp Course Assessment/Plan - Atrial fibrillation with rapid ventricular response, Dr. Orozco will be following patient in cardiology consultation. Patient is currently in sinus rhythm. - Possible bronchitis, continue antibiotic and antitussives. -Elevated d-dimer. CTA chest is negative for PE Further recommendations based on clinical course. Plan of care discussed with Dr. Abarca. Problems: Subjective 24 Hr Interval Summary Free Text/Dictation Patient complains of occasional cough, complains of shortness of breath during the night, breathing comfortably on room air during the day. Exam/Review of Systems Vital Signs Vitals Vital Signs Date Time Temp Pulse Resp B/P Pulse Ox O2 Delivery O2 Flow Rate FiO2 01/12/17 16:27 70 01/12/17 15:40 98.2 16 127/54 99 01/10/17 10:26 Nasal Cannula 2.0 Intake and Output 01/11/17 01/11/17 01/12/17 15:00 23:00 07:00 Intake Total 600 ml 400 ml Balance 600 ml 400 ml Exam Constitutional: alert, oriented Psych: no complaints Head: atraumatic, normocephalic Eyes: nl conjunctiva ENMT: nl external ears & nose Neck: non-tender, supple Respiratory: clear to auscultation, normal air movement Cardiovascular: nl pulses, regular rate and rhythm Gastrointestinal: non-tender, soft Musculoskeletal: nl extremities to inspection Extremities: normal pulses 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 Results Result Diagram: 01/10/1730 01/10/1730 Medications Medications Current Medications Metoprolol Tartrate (Lopressor) 25 mg BID PO Last administered on 01/12/17 08: 24; Admin Dose 25 MG; Start 01/08/17 at 21:00 Acetaminophen (Tylenol Tab) 650 mg Q6H PRN PO PAIN AND OR ELEVATED TEMP Last administered on 01/11/17 20:27; Admin Dose 650 MG; Start 01/08/17 at 18:00 Docusate Sodium (Colace) 100 mg QHS PO Last administered on 01/11/17 20:23; Admin Dose 100 MG; Start 01/08/17 at 21:00 Famotidine (Pepcid) 20 mg DAILY PO Last administered on 01/12/17 08:24; Admin Dose 20 MG; Start 01/08/17 at 20:30 Gabapentin (Neurontin) 300 mg QAM PO Last administered on 01/12/17 08:24; Admin Dose 300 MG; Start 01/08/17 at 20:30 Acetaminophen/ Hydrocodone Bitart ([place] (5/325)) 1 tab Q6H PRN PO PAIN Last administered on 01/09/17 18:11; Admin Dose 1 TAB; Start 01/08/17 at 20:30 Guaifenesin (Mucinex) 600 mg BID PO Last administered on 01/12/17 08:25; Admin Dose 600 MG; Start 01/09/17 at 21:00 Levofloxacin (Levaquin) 500 mg DAILY@06 PO Last administered on 01/12/17 08:25 ; Admin Dose 500 MG; Start 01/09/17 at 15:00 Methylprednisolone Sodium Succinate (Solu-Medrol) 20 mg Q12 IV Last administered on 01/12/17 08:25; Admin Dose 20 MG; Start 01/09/17 at 21:00 Morphine Sulfate (morphine) 2 mg Q4H PRN IM Pain 7-10; Start 01/09/17 at 19:00 Pantoprazole (Protonix Tab) 40 mg DAILY@06 PO Last administered on 01/12/17 08: 25; Admin Dose 40 MG; Start 01/10/17 at 06:00 Apixaban (Eliquis) 2.5 mg BID PO Last administered on 01/12/17 08:24; Admin Dose 2.5 MG; Start 01/09/17 at 21:00 DORENE AGUIRRE Jan 12, 2017 17:26
[2017-01-12] MEDS: DOCUSATE SODIUM 100 MG CAP PO SCH (21:46)
[2017-01-13] MEDS: PANTOPRAZOLE (EC) 40 MG TAB PO SCH (05:54)
[2017-01-13] MEDS: LEVOFLOXACIN 500 MG TAB PO SCH (05:54)
[2017-01-13 06:05] LABS: ADD SCAN DIFF NO
[2017-01-13 06:14] LABS: BASOPHILS % 0.3 % (0.0-2.0); EOSINOPHILS # 0.1 10^3/ul (0.0-0.5); HEMOGLOBIN 11.6 g/dl (12.0-16.0); LYMPHOCYTES # 2.5 10^3/ul (0.8-2.9); LYMPHOCYTES % 36.3 % (15.0-51.0); MEAN CORPUSCULAR HEMOGLOBIN 28.8 pg (29.0-33.0); MEAN CORPUSCULAR HGB CONC 30.5 g/dl (32.0-37.0); MEAN CORPUSCULAR VOLUME 94.3 fl (82.0-101.0); MEAN PLATELET VOLUME 8.6 fl (7.4-10.4); MONOCYTE # 0.6 10^3/ul (0.3-0.9); MONOCYTES % 9.2 % (0.0-11.0); NEUTROPHIL # 3.6 10^3/ul (1.6-7.5); NEUTROPHILS % 52.8 % (39.0-77.0); PLATELET COUNT 260 10^3/UL (140-415); RED BLOOD COUNT 4.03 10^6/ul (4.20-5.40); RED CELL DISTRIBUTION WIDTH 12.9 % (11.5-14.5); WHITE BLOOD COUNT 6.9 10^3/ul (4.8-10.8)
[2017-01-13 06:42] LABS: POTASSIUM 3.8 mmol/L (3.5-5.1)
[2017-01-13 06:45] LABS: CREATININE 0.79 mg/dl (0.44-1.00)
[2017-01-13 06:46] LABS: CALCIUM 8.6 mg/dl (8.4-10.2)
[2017-01-13 07:58] VITALS: BP 96/40; RESP 18
[2017-01-13] MEDS ORDERED: METHYLPREDNISOLONE 40 MG INJ IV SCH (09:00)
[2017-01-13] MEDS: GABAPENTIN 300 MG CAP PO SCH (09:01)
[2017-01-13] MEDS: METOPROLOL 25 MG TAB PO SCH (09:01)
[2017-01-13] MEDS: GUAIFENESIN LA 600 MG TABSR PO SCH (09:01)
[2017-01-13] MEDS: FAMOTIDINE 20 MG TAB PO SCH (09:01)
[2017-01-13] MEDS: APIXABAN 5 MG TABLET PO SCH (09:02)
[2017-01-13] MEDS ORDERED: APIX5TAB PO (13:09)
[2017-01-13] MEDS ORDERED: METO-448 PO (13:09)
[2017-01-13] MEDS ORDERED: MED4DP PO (13:09)
[2017-01-13] MEDS ORDERED: LEVO500T72 PO (13:09)
== END 2017-01-13 15:00 | disposition home or self-care (01) | DRG 310 ==
LOC: E/R 08:39 → TEL 11:46 → MS2 01-12 21:05
PROVIDERS: ADMIT Internal Medicine; ATTEND Internal Medicine
DX: I48.91 Unspecified atrial fibrillation (principal); I10 Essential (primary) hypertension; J40 Bronchitis, not specified as acute or chronic
CPT/HCPCS: 36415; 71010; 71275; 80048; 82550; 82553; 83605; 84484; 85025; 85378; 85610; 85730; 87400; 93005; 93306; 96374; J1650; J2920; J7030; J7512; Q9967

== ENCOUNTER 2017-05-27 20:49 | Inpatient (IN) | payer MEDICARE, OTHER ==
[~2017-05-27] VITALS: Ht 157.5 cm; Wt 70.8 kg
[~2017-05-27 20:49] MED LIST changes: -ACYC800T57 PO; +APIX5TAB PO; -CEPH-443 PO; -FAMO-18 PO; +FAMO-96 PO; +LEVO500T72 PO; +MED4DP PO; +METO-448 PO
[2017-05-27 22:58] LABS: ADD SCAN DIFF NO
[2017-05-27] MEDS ORDERED: ENOXAPARIN 80 MG/0.8 ML SYG SC SCH (23:00)
[2017-05-27 23:04] LABS: BASOPHILS % 0.4 % (0.0-2.0); EOSINOPHILS # 0.2 10^3/ul (0.0-0.5); EOSINOPHILS % 3.3 % (0.0-7.0); HEMATOCRIT 39.7 % (37.0-47.0); HEMOGLOBIN 12.5 g/dl (12.0-16.0); LYMPHOCYTES # 2.2 10^3/ul (0.8-2.9); LYMPHOCYTES % 30.6 % (15.0-51.0); MEAN CORPUSCULAR HEMOGLOBIN 29.4 pg (29.0-33.0); MEAN CORPUSCULAR HGB CONC 31.5 g/dl (32.0-37.0); MEAN CORPUSCULAR VOLUME 93.4 fl (82.0-101.0); MEAN PLATELET VOLUME 8.8 fl (7.4-10.4); MONOCYTE # 0.6 10^3/ul (0.3-0.9); MONOCYTES % 7.7 % (0.0-11.0); NEUTROPHIL # 4.2 10^3/ul (1.6-7.5); NEUTROPHILS % 57.7 % (39.0-77.0); PLATELET COUNT 239 10^3/UL (140-415); RED BLOOD COUNT 4.25 10^6/ul (4.20-5.40); WHITE BLOOD COUNT 7.3 10^3/ul (4.8-10.8)
[2017-05-27 23:20] LABS: ANION GAP 13 (8-16); BLOOD UREA NITROGEN 20 mg/dl (7-20); CALCIUM 9.4 mg/dl (8.4-10.2); CARBON DIOXIDE 32 mmol/L (21-31); CHLORIDE 101 mmol/L (97-110); CREATININE 0.81 mg/dl (0.44-1.00); GLUCOSE 105 mg/dl (70-220); POTASSIUM 4.6 mmol/L (3.5-5.1); SODIUM 141 mmol/L (135-144)
[2017-05-27 23:21] LABS: PARTIAL THROMBOPLASTIN TIME 25.1 Sec (25.0-35.0)
[2017-05-27] MEDS ORDERED: BACL10TA PO (23:22)
[2017-05-27] MEDS ORDERED: ATOR10TA65 PO (23:22)
[2017-05-27] MEDS ORDERED: NAPR-688 PO (23:22)
[2017-05-27] MEDS ORDERED: ALBU18HF INHALATION (23:22)
[2017-05-27 23:23] LABS: D-DIMER 3297.74 ng/ml (<460)
[2017-05-27 23:25] LABS: INR 0.83; PROTIME 11.4 Sec (12.2-14.2); PT RATIO 0.9
[2017-05-27 23:41] LABS: TROPONIN-I < 0.012 ng/ml (0.00-0.12)
--- NOTE | 2017-05-27 23:43 | RADRPT ---
PROCEDURE: XR Chest. 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 The heart does not appear to be grossly enlarged. ECG leads projected ov er the chest. Partial atelectasis again apparent in right lower lobe. The lungs are less inflated t montes on the previous chest x-ray. Calcification in the aortic arch. 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 Right lower lobe partial atelectasis. Hypoinflation of the lungs. RPTAT: HJES .Romero Keller MD, MD Date Time Electronically viewed and signed by .Romero Keller MD, on 05/27/2017 23:42 .S/
[2017-05-28] VITALS (8 sets, daily range): BP systolic 119–147; BP diastolic 50–95; PULSE 67–81; RESP 16–20; TEMP 98.2; Ht 157.5 cm; Wt 70.8 kg
[2017-05-28] MEDS ORDERED: IOHEXOL 300MG/ML 150 ML BTL ONE (00:20)
[2017-05-28] MEDS ORDERED: SOD CHLORIDE 0.9% 100 ML ONE (00:20)
--- NOTE | 2017-05-28 01:23 | RADRPT ---
PROCEDURE: CTA Chest and pulmonary angiogram. CLINICAL INDICATION: Shortness of breath outside CT with possible pulmonary embolism right upper l obe/right lower lobe and left diaphragm up with shift TECHNIQUE: CT scan of the chest and CT pulmonary angiogram was performed on a multidetector high-r esolution CT scanner. High-resolution thin slice coronal and sagittal imaging was obtained from the axial source images. No 3-D/maximum intensity projection reformatted imaging was performed. The pat ient was examined following the intravenous administration of 100 cc of Omnipaque-300. The images we re reviewed on a PACS workstation. The total exam CTDI equals 7.04 +21.13 +10.85 mGy, and the total exam DLP equals 436.83 mGy-cm. One or more the following dose reduction techniques were utilized: Automated exposure control, adjus tment of the mA and / or kV according to patient's size, or use of iterative reconstruction techniqu e. COMPARISON: Chest x-ray of 05/27/2017 and CTA chest of 01/08/2017 FINDINGS: Large left diaphragmatic hernia containing stomach, lateral segment of left lobe of liver, spleen, b julissa and tail of pancreas, left adrenal, splenic flexure of the colon and small bowel loops is again seen with left lower lung volume loss and shift of the mediastinum to the right. Filling defects co nsistent with emboli are seen in right upper lobe lobar and segmental and right lower lobe segmental pulmonary arteries. Calcification in thoracoabdominal aorta and great vessels. No thoracic aortic aneurysm or dissection is seen. Coronary artery calcification. No enlarged mediastinal lymph nodes are seen. Calcified lymph node in mediastinum. No pleural effusion is seen. Calcified granuloma in left upper lung lobe. Mild bilateral apical lung fibrotic changes. Scattered linear atelectasis/fib rosis is seen in the lungs. Partial atelectasis in left upper lobe and left lower lobe and lingular atelectasis and partial atelectasis in the right middle lobe and right lower lobe. Likely secretion in right lower trachea. Bilateral parapelvic renal cysts in visualized kidneys. Diverticula in visu alized upper colon. Schmorl's nodes in thoracolumbar spine. Degenerative changes in visualized uppe r lumbar spine. IMPRESSION: Pulmonary emboli. 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 Please see above. Critical result discussed with Chito Dominguez at 01:20 a.m. on 05/28/2017. RPTAT: HJES .Romero Keller MD, Date Time Electronically viewed and signed by .Romero Keller MD, MD on 05/28/2017 01:22 .S/
--- NOTE | 2017-05-28 03:38 | ERA ---
ER Documentation Chief Complaint Date/Time DATE: 05/28/17 TIME: 03:31 Chief Complaint right sided abd pain and cough x 1 week, SOB HPI This 81-year-old female has had a cough for 1 week and has had shortness of breath over the past 5 days. The family states that she is having dyspnea on exertion. She is a cough is dry and nonproductive. She saw her for his primary care physician who ordered a CAT scan of her chest for shortness of breath. CAT scan that was done on Thursday showed possible right upper and lower lobe pulmonary embolisms with very elevated left hemidiaphragm causing some right mediastinal shift. Patient says she is not having any shortness of breath at rest but any exertion causes some shortness of breath. No orthopnea. Does not have any substernal chest pain or palpitations ROS All systems reviewed and are negative except as per history of present illness. Medications Home Meds Reported Medications Atorvastatin Calcium (Atorvastatin Calcium) 10 Mg Tablet, 10 MG PO QHS, #30 TAB 05/27/17 Albuterol Sulfate* (Ventolin HFA*) 18 Gm Hfa.aer.ad, 2 PUFF INHALATION Q4H, #1 INHALER 05/27/17 Naproxen* (Naproxen*) 500 Mg Tablet, 500 MG PO BID Y for PAIN, TAB 05/27/17 Baclofen* (Baclofen*) 10 Mg Tablet, 10 MG PO DAILY, TAB 05/27/17 Famotidine* (Pepcid*) 20 Mg Tablet, 20 MG PO DAILY, TAB 11/16/14 Discontinued Reported Medications Docusate Sodium* (Colace*) 100 Mg Capsule, 100 MG PO QHS, CAP 11/16/14 Discontinued Scripts Methylprednisolone* (Medrol* DOSE PACK) 4 Mg/Dose-Pack Tab.ds.pk, 4 MG PO . DIRECTED, #1 PACKET Prov:DORENE AGUIRRE 01/13/17 Levofloxacin* (Levaquin*) 500 Mg Tablet, 500 MG PO DAILY@06 for 5 Days, TAB Prov:SUDARSHAN AGUIRRELANA 01/13/17 Metoprolol Tartrate* (Lopressor*) 25 Mg Tab, 25 MG PO BID for 30 Days, TAB Prov:JUAN PABLO AGUIRREA 01/13/17 Apixaban* (Eliquis*) 5 Mg Tablet, 2.5 MG PO BID for 30 Days, TAB Prov:DORENE AGUIRRE 01/13/17 Hydrocodone/Acetaminophen ([place] 5-325 Tablet) 1 Each Tablet, 1 TAB PO Q6H Y for PAIN, #7 TAB Prov:ISAURA ALCANTAR NP 12/14/16 Gabapentin* (Gabapentin*) 300 Mg Capsule, 300 MG PO QAM, #30 CAP Take one tab on day 1, take BID on day 2, then TID thereafter Prov:JENS TERRAZAS MD 12/10/16 Allergies Allergies: Coded Allergies: No Known Allergy (Unverified , 05/27/17) PMhx/Soc History of Surgery: Yes (tubal ligation) Anesthesia Reaction: No Hx Neurological Disorder: No Hx Respiratory Disorders: Yes (SOB at night) Hx Cardiac Disorders: Yes (hld) Hx Psychiatric Problems: No Hx Miscellaneous Medical Probl: No Hx Alcohol Use: No Hx Substance Use: No Hx Tobacco Use: Yes Smoking Status: Current every day smoker FmHx Family History: No coronary disease Physical Exam Vitals Vital Signs Date Time Temp Pulse Resp B/P Pulse Ox O2 Delivery O2 Flow Rate FiO2 05/28/17 03:19 82 22 141/65 98 Nasal Cannula 2.0 05/28/17 00:45 75 16 154/95 99 Nasal Cannula 2.0 05/27/17 22:51 Nasal Cannula 2 05/27/17 22:34 98.0 79 22 177/88 98 Room Air 05/27/17 20:57 97.6 87 20 154/67 94 Physical Exam Const: Well-developed, well-nourished Head: Atraumatic, normocephalic Eyes: Normal Conjunctiva, PERRLA, EOMI, normal sclera, no nystagmus ENT: Normal External Ears, Nose and Mouth, moist mucus membranes. Neck: Full range of motion. No meningismus, no lymphadenopathy. Resp: [Markedly diminished breath sounds in the left lung crowe by lung crowe are clear no increased work of breathing Cardio: Regular rate and rhythm, no murmurs, S1 S2 present Abd: Soft, non tender x 4, non distended. Normal bowel sounds, no guarding or rebound, no pulsitile abdominal masses or bruits Skin: No petechiae or rashes, no ecchymosis , no maculopapular rash Back: No midline or flank tenderness Ext: No cyanosis, or edema, FROM x 4, normal inspection, neurovascularly intact x 4 Neur: Awake and alert, STR 5/5 x 4, sensation intact x 4, no focal findings, cerebellum intact Psych: Normal Mood and Affect Result Diagram: 05/27/17224505/27/172245 Results 24 hrs Laboratory Tests Test 05/27/17 22:46 White Blood Count 7.310^3/ul Red Blood Count 4.2510^6/ul Hemoglobin 12.5g/dl Hematocrit 39.7% Mean Corpuscular Volume 93.4fl Mean Corpuscular Hemoglobin 29.4pg Mean Corpuscular Hemoglobin Concent 31.5g/dl Red Cell Distribution Width 13.0% Platelet Count 01302^3/UL Mean Platelet Volume 8.8fl Neutrophils % 57.7% Lymphocytes % 30.6% Monocytes % 7.7% Eosinophils % 3.3% Basophils % 0.4% Nucleated Red Blood Cells % 0.0/100WBC Neutrophils # 4.210^3/ul Lymphocytes # 2.210^3/ul Monocytes # 0.610^3/ul Eosinophils # 0.210^3/ul Basophils # 0.010^3/ul Nucleated Red Blood Cells # 0.010^3/ul Prothrombin Time 11.4Sec Prothrombin Time Ratio 0.9 INR International Normalized Ratio 0.83 Activated Partial Thromboplast Time 25.1Sec D-Dimer 3297.74ng/ml D-Dimer Comment Sodium Level 141mmol/L Potassium Level 4.6mmol/L Chloride Level 101mmol/L Carbon Dioxide Level 32mmol/L Anion Gap 13 Blood Urea Nitrogen 20mg/dl Creatinine 0.81mg/dl Glucose Level 105mg/dl Calcium Level 9.4mg/dl Troponin I < 0.012ng/ml B-Type Natriuretic Peptide 242PG/ML Current Medications Medications (Trade) Dose Ordered Sig/Jennifer Route PRN Reason Start Time Stop Time Status Last Admin Dose Admin Enoxaparin Sodium 70 mg 70 mg ONCE SC 05/27/17 23:00 05/27/17 23:47 Sodium Chloride (NS) 100 ml @ ud STK-MED ONCE .ROUTE 05/28/17 00:20 05/28/17 00:21 DC 05/28/17 00:27 Iohexol (Omnipaque 300mg/ ml) 150 ml STK-MED ONCE .ROUTE 05/28/17 00:20 05/28/17 00:21 DC 05/28/17 00:27 Procedures/MDM EKG: Rate/Rhythm: Normal Sinus Rhythm,NL intervals QRS, ST, QT: NORMAL [place], QRS, QT] Impression: NORMAL EKG PROCEDURE: XR Chest. CLINICAL INDICATION: Shortness of breath TECHNIQUE: Single frontal view of the chest was obtained COMPARISON: Chest x-ray and CTA chest of 01/08/2017 FINDINGS: Again seen is severe apparent hernia of the left hemidiaphragm occupying the lower approximate 3/4 of the left hemithorax with resultant mass effect on the left lung and displacement of the heart and mediastinum to the right . The heart does not appear to be grossly enlarged. ECG leads projected over the chest. Partial atelectasis again apparent in right lower lobe. The lungs are less inflated than on the previous chest x-ray. Calcification in the aortic arch. IMPRESSION: Again seen is severe apparent hernia of the left hemidiaphragm occupying the lower approximate 3/4 of the left hemithorax with resultant mass effect on the left lung and displacement of the heart and mediastinum to the right . Right lower lobe partial atelectasis. Hypoinflation of the lungs. RPTAT: HJES .Romero Keller MD, MD Date Time Electronically viewed and signed by .Romero Keller MD, MD on 05/27/2017 23:42 .S/ CC: DANIEL BLANKENSHIP DO PROCEDURE: CTA Chest and pulmonary angiogram. CLINICAL INDICATION: Shortness of breath outside CT with possible pulmonary embolism right upper lobe/right lower lobe and left diaphragm up with shift TECHNIQUE: CT scan of the chest and CT pulmonary angiogram was performed on a multidetector high-resolution CT scanner. High-resolution thin slice coronal and sagittal imaging was obtained from the axial source images. No 3-D/maximum intensity projection reformatted imaging was performed. The patient was examined following the intravenous administration of 100 cc of Omnipaque-300. The images were reviewed on a PACS workstation. The total exam CTDI equals 7.04 +21.13 +10.85 mGy, and the total exam DLP equals 436.83 mGy-cm. One or more the following dose reduction techniques were utilized: Automated exposure control, adjustment of the mA and / or kV according to patient's size, or use of iterative reconstruction technique. COMPARISON: Chest x-ray of 05/27/2017 and CTA chest of 01/08/2017 FINDINGS: Large left diaphragmatic hernia containing stomach, lateral segment of left lobe of liver, spleen, body and tail of pancreas, left adrenal, splenic flexure of the colon and small bowel loops is again seen with left lower lung volume loss and shift of the mediastinum to the right. Filling defects consistent with emboli are seen in right upper lobe lobar and segmental and right lower lobe segmental pulmonary arteries. Calcification in thoracoabdominal aorta and great vessels. No thoracic aortic aneurysm or dissection is seen. Coronary artery calcification. No enlarged mediastinal lymph nodes are seen. Calcified lymph node in mediastinum. No pleural effusion is seen. Calcified granuloma in left upper lung lobe. Mild bilateral apical lung fibrotic changes. Scattered linear atelectasis/fibrosis is seen in the lungs. Partial atelectasis in left upper lobe and left lower lobe and lingular atelectasis and partial atelectasis in the right middle lobe and right lower lobe. Likely secretion in right lower trachea. Bilateral parapelvic renal cysts in visualized kidneys. Diverticula in visualized upper colon. Schmorl's nodes in thoracolumbar spine. Degenerative changes in visualized upper lumbar spine. IMPRESSION: Pulmonary emboli. 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 Please see above. Critical result discussed with PITER Dominguez at 01:20 a.m. on 05/28/2017. RPTAT: HJES .Romero Keller MD, MD Date Time Electronically viewed and signed by .Romero Keller MD, on 05/28/2017 01:22 .S/ CC: DANIEL BLANKENSHIP DO Patient was treated with Lovenox subcu. Patient is to pulmonary emboli in the right lung. Will admit to telemetry to Dr. Bard webb Critical Care Time: 30 minutes Treatments/Evaluations: Close monitoring and treatment of unstable vital signs, cardiorespiratory, and neurologic status, while maintaining tight balance of fluid, respiratory, and cardiac interventions. This time includes discussing the case with the patient and the patient's family. This time does not include all procedures stated elsewhere in this record. This time also includes reviewing old records, labs and radiological studies. This time includes examining and re-examining the patient. Additionally, this time also includes arranging care with admitting and consulting physicians. Departure Diagnosis: Primary Impression: Pulmonary embolism Qualified Code: I26.99 - Other acute pulmonary embolism without acute cor pulmonale Condition: Stable DANIEL BLANKENSHIP DO May 28, 2017 03:38
[2017-05-28] MEDS ORDERED: ONDANSETRON 4 MG INJ IV PRN (04:00)
[2017-05-28] MEDS ORDERED: ACETAMINOPHEN 325 MG TAB PO PRN (04:00)
[2017-05-28] MEDS ORDERED: HYDROCODONE/APAP (5/325) TAB PO PRN (08:30)
[2017-05-28] MEDS ORDERED: ALBUTEROL 18 GM INHALER INH PRN ×2 (08:30→09:30)
[2017-05-28] MEDS: FAMOTIDINE 20 MG TAB PO SCH (09:00)
[2017-05-28] MEDS: BACLOFEN 10 MG TAB PO SCH (09:00)
[2017-05-28] MEDS: ACETAMINOPHEN 325 MG TAB PO PRN (09:09)
[2017-05-28] MEDS: ENOXAPARIN 80 MG/0.8 ML SYG SC SCH ×2 (11:47→21:03)
[2017-05-28 12:35] LABS: ADD SCAN DIFF NO
[2017-05-28 12:38] LABS: BASOPHILS % 0.6 % (0.0-2.0); EOSINOPHILS # 0.2 10^3/ul (0.0-0.5); EOSINOPHILS % 2.5 % (0.0-7.0); HEMATOCRIT 38.4 % (37.0-47.0); HEMOGLOBIN 11.6 g/dl (12.0-16.0); LYMPHOCYTES # 1.7 10^3/ul (0.8-2.9); MEAN CORPUSCULAR HEMOGLOBIN 28.4 pg (29.0-33.0); MEAN CORPUSCULAR HGB CONC 30.2 g/dl (32.0-37.0); MEAN CORPUSCULAR VOLUME 94.1 fl (82.0-101.0); MEAN PLATELET VOLUME 9.2 fl (7.4-10.4); MONOCYTE # 0.5 10^3/ul (0.3-0.9); MONOCYTES % 7.1 % (0.0-11.0); NEUTROPHIL # 4.7 10^3/ul (1.6-7.5); NEUTROPHILS % 65.5 % (39.0-77.0); PLATELET COUNT 218 10^3/UL (140-415); RED BLOOD COUNT 4.08 10^6/ul (4.20-5.40); WHITE BLOOD COUNT 7.2 10^3/ul (4.8-10.8)
--- NOTE | 2017-05-28 12:57 | HP ---
Date/Time of Note Date/Time of Note DATE: 05/28/17 TIME: 12:32 Assessment/Plan VTE Prophylaxis VTE Prophylaxis Intervention: LMWH, other Assessment/Plan Assessment/Plan -Left Lower Lung Pulmonary embolism -Admit to telemetry floor -Pulmonary consult/notified -Started on Lovenox -Resume home medications -Monitor for any signs and symptoms of bleeding -Vital signs as routine - Current smoker -Reinforced smoking cessation - Dyslipidemia - cont Lipitor -Lovenox for DVT prophylaxis -Pepcid for GI prophylaxis -Admission orders are done -2 grams sodium diet Further recommendations depend on patient's clinical course. Plan of care discussed with Dr. Abarca, staff HPI/ROS Admit Date/Time Admit Date/Time May 28, 2017 at 03:38 Hx of Present Illness This is a 81-year-old female, a former cigarette smoker is admitted with complaints of dry and nonproductive cough 1 week and shortness of breath on exertion. from last 5 days. She went to her primary care physician with c/o shortness of breath and a CAT scan of her chest showed possible right upper and lower lobe pulmonary embolisms with very elevated left hemidiaphragm causing some right mediastinal shift. During assessment, patient c/o SOB only on exertion, denies orthopnea, any substernal chest pain or palpitations, dizziness palpitations headache, focal weakness or numbness, abdominal pain, nausea vomiting.. During physical exam patient is resting in bed, seems comfortable,shortness of breath noted, able to talk in full sentences. Patient is admitted under Dr Abarca for further treatment/evaluation. ROS All systems reviewed and are negative except as per history of present illness. Allergies No Known Allergy (Unverified , 05/27/17) ROS Constitutional: other (On O2 2 L nasal cannula) Eyes: no complaints ENT: no complaints Respiratory: no complaints Cardiovascular: no complaints Gastrointestinal: no complaints PMH/Family/Social Past Medical History PMhx/Soc History of Surgery: Yes (tubal ligation) Anesthesia Reaction: No Hx Neurological Disorder: No Hx Respiratory Disorders: Yes (SOB at night) Hx Cardiac Disorders: Yes (hld) Hx Psychiatric Problems: No Hx Miscellaneous Medical Probl: No Hx Alcohol Use: No Hx Substance Use: No Hx Tobacco Use: Yes Smoking Status: Current every day smoker FmHx Family History: No coronary disease Past Surgical History Past Surgical Hx: other (Status post tubal ligation) Social History Smoking Status: Current every day smoker Exam/Review of Systems Vital Signs Vitals Vital Signs Date Time Temp Pulse Resp B/P Pulse Ox O2 Delivery O2 Flow Rate FiO2 05/28/17 12:24 73 05/28/17 12:12 98.0 18 119/50 93 05/28/17 09:00 Nasal Cannula 3.0 Exam Constitutional: alert, well developed Respiratory: diminished breath sounds (More on left side as compared to right side) Cardiovascular: nl pulses, regular rate and rhythm Gastrointestinal: non-tender, soft Musculoskeletal: nl extremities to inspection Extremities: normal pulses Neurological: nl mental status, nl speech Skin: nl turgor Labs Result Diagram: 05/27/17224505/27/172245 Medications Medications Current Medications Atorvastatin Calcium (Lipitor) 10 mg QHS PO ; Start 05/28/17 at 21:00 Baclofen (Lioresal) 10 mg DAILY PO ; Start 05/28/17 at 09:00 Famotidine (Pepcid) 20 mg DAILY PO ; Start 05/28/17 at 09:00 Acetaminophen (Tylenol Tab) 650 mg Q4H PRN PO PAIN AND OR ELEVATED TEMP Last administered on 05/28/17 09:09; Admin Dose 650 MG; Start 05/28/17 at 08:30 Enoxaparin Sodium (Lovenox) 70 mg Q12 SC Last administered on 05/28/17 11:47; Admin Dose 70 MG; Start 05/28/17 at 11:00 Acetaminophen/ Hydrocodone Bitart ([place] (5/325)) 1 tab Q6H PRN PO PAIN LEVEL 6 -10; Start 05/28/17 at 08:30 Procedures Procedures EKG: Rate/Rhythm: Normal Sinus Rhythm,NL intervals QRS, ST, QT: NORMAL [place], QRS, QT] Impression: NORMAL EKG XR Chest. -Again seen is severe apparent hernia of the left hemidiaphragm occupying the lower approximate 3/4 of the left hemithorax with resultant mass effect on the left lung and displacement of the heart and mediastinum to the right . Right lower lobe partial atelectasis. Hypoinflation of the lungs. CTA Chest and pulmonary angiogram. CLINICAL INDICATION: Shortness of breath outside CT with possible pulmonary embolism right upper lobe/right lower lobe and left diaphragm up with shift CT scan of the chest and CT pulmonary angiogram was performed on a multidetector high-resolution CT scanner. High-resolution thin slice coronal and sagittal imaging was obtained from the axial source images. No 3-D/maximum intensity projection reformatted imaging was performed. The patient was examined following the intravenous administration of 100 cc of Omnipaque-300. The images were reviewed on a PACS workstation. The total exam CTDI equals 7.04 +21.13 +10.85 mGy, and the total exam DLP equals 436.83 mGy-cm. One or more the following dose reduction techniques were utilized: Automated exposure control, adjustment of the mA and / or kV according to patient's size, or use of iterative reconstruction technique. COMPARISON: Chest x-ray of 05/27/2017 and CTA chest of 01/08/2017 julisa. Bilateral parapelvic renal cysts in visualized kidneys. Diverticula in visualized upper colon. Schmorl's nodes in thoracolumbar spine. Degenerative changes in visualized upper lumbar spine. IMPRESSION: Pulmonary emboli. 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 Please see above. Critical result discussed with PITER Dominguez at 01:20 a.m. on 05/28/2017. LUIS MANUEL RAMIREZ May 28, 2017 12:42
[2017-05-28] MEDS: ATORVASTATIN 10 MG TAB PO SCH (21:02)
[2017-05-29] VITALS (13 sets, daily range): BP systolic 101–144; BP diastolic 48–73; PULSE 63–101; RESP 18–19
[2017-05-29] MEDS: ACETAMINOPHEN 325 MG TAB PO PRN ×2 (07:21→15:00)
[2017-05-29] MEDS: BACLOFEN 10 MG TAB PO SCH (08:07)
[2017-05-29] MEDS: FAMOTIDINE 20 MG TAB PO SCH (08:08)
[2017-05-29 08:33] LABS: ADD SCAN DIFF NO
[2017-05-29 08:35] LABS: BASOPHILS % 0.5 % (0.0-2.0); EOSINOPHILS # 0.2 10^3/ul (0.0-0.5); EOSINOPHILS % 2.9 % (0.0-7.0); HEMOGLOBIN 12.7 g/dl (12.0-16.0); LYMPHOCYTES # 1.7 10^3/ul (0.8-2.9); LYMPHOCYTES % 23.5 % (15.0-51.0); MEAN CORPUSCULAR HEMOGLOBIN 28.9 pg (29.0-33.0); MEAN CORPUSCULAR VOLUME 93.4 fl (82.0-101.0); MEAN PLATELET VOLUME 9.2 fl (7.4-10.4); MONOCYTE # 0.4 10^3/ul (0.3-0.9); NEUTROPHIL # 4.9 10^3/ul (1.6-7.5); NEUTROPHILS % 66.8 % (39.0-77.0); PLATELET COUNT 215 10^3/UL (140-415); RED BLOOD COUNT 4.39 10^6/ul (4.20-5.40); RED CELL DISTRIBUTION WIDTH 12.7 % (11.5-14.5); WHITE BLOOD COUNT 7.3 10^3/ul (4.8-10.8)
[2017-05-29 08:54] LABS: ALBUMIN 3.8 g/dl (3.3-4.9); ALBUMIN/GLOBULIN RATIO 1.18; BILIRUBIN,INDIRECT 0.3 mg/dl (0-1.1); BILIRUBIN,TOTAL 0.3 mg/dl (0.2-1.3); CALCIUM 9.3 mg/dl (8.4-10.2); CREATININE 0.71 mg/dl (0.44-1.00); POTASSIUM 4.8 mmol/L (3.5-5.1)
[2017-05-29] MEDS: ENOXAPARIN 80 MG/0.8 ML SYG SC SCH ×2 (08:57→21:01)
--- NOTE | 2017-05-29 14:50 | CONS ---
Date/Time of Note Date/Time of Note DATE: 05/29/17 TIME: 14:45 Assessment/Plan Assessment/Plan Additional Assessment/Plan Chest x-ray was reviewed which is showing extensive infiltrative changes involving the left lung. CT of the chest was reviewed which is showing extensive diaphragmatic hernia with most of the abdominal contents of the chest cavity. Right upper lobe pulmonary embolism is seen. Assessment recommendations; 1. Patient with shortness of breath discovered to have right upper lobe pulmonary embolism currently on appropriate Lovenox dosing. 2. Chronic appearing left diaphragmatic hernia. Continue current treatment. Consultation Date/Type/Reason Admit Date/Time May 28, 2017 at 03:38 Date of Consultation: May 29, 2017 Type of Consultation: Pulmonary Reason for Consultation Pulmonary consultation requested for evaluation of pulmonary embolism. History presenting any; patient is a pleasant 81-year-old lady who was admitted yesterday to the hospital with complaints of shortness of breath. Upon evaluation a CTA of the chest was done which is showing chronic appearing left diaphragmatic hernia with most of the abdominal contents and the chest cavity however right upper lobe embolism has been identified in the patient started on Lovenox for that. By the time I saw the patient, she is completely awake alert denies any shortness of breath, coughing, hemoptysis, any sputum production. Also denies any recent nausea vomiting or abdominal pain. Past medical history; 1. Patient with a history of left diaphragmatic hernia. 2. No other medical illnesses. Medications; reviewed. Social history; patient is an ex-smoker. Family history; noncontributory. 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 Review of systems; denies any headache, seizures. Any chest pain, abdominal pain, nausea vomiting. Shortness of breath has improved. Denies any melena or hematochezia. Any edema or orthopnea. Any weight loss. General exam; elderly woman, awake alert currently in no distress. Eyes: no complaints ENT: no complaints Respiratory: no complaints Cardiovascular: no complaints Gastrointestinal: no complaints Past Surgical History Past Surgical Hx: other (Status post tubal ligation) Social History Smoking Status: Former smoker Exam/Review of Systems Vital Signs Vitals Vital Signs Date Time Temp Pulse Resp B/P Pulse Ox O2 Delivery O2 Flow Rate FiO2 05/29/17 12:22 97.9 71 18 101/49 95 05/29/17 08:01 Nasal Cannula 3.0 Intake and Output 05/28/17 05/28/17 05/29/17 15:00 23:00 07:00 Intake Total 880 ml 700 ml Balance 880 ml 700 ml Exam HEENT exam; supple neck, no JVD. No lymphadenopathy. Midline trachea. No thyromegaly. Patient is edentulous and wears dentures. Has bilateral intraocular lens implants. Chest exam; mildly decreased breath sounds left lung right lung is clear to auscultation. S1-S2 audible, no murmurs. Regular rhythm. Abdomen exam; soft, no organomegaly. Bowel sounds audible. Extremity exam; no peripheral edema. Pulses 1+ bilaterally. No clubbing. CISO exam; no focal deficit. Results Result Diagram: 05/29/17 0742 05/29/17 0742 Results 24 hrs Laboratory Tests Test 05/29/17 07:42 White Blood Count 7.3 Red Blood Count 4.39 Hemoglobin 12.7 Hematocrit 41.0 Mean Corpuscular Volume 93.4 Mean Corpuscular Hemoglobin 28.9 L Mean Corpuscular Hemoglobin Concent 31.0 L Red Cell Distribution Width 12.7 Platelet Count 215 Mean Platelet Volume 9.2 Neutrophils % 66.8 Lymphocytes % 23.5 Monocytes % 6.0 Eosinophils % 2.9 Basophils % 0.5 Neutrophils # 4.9 Lymphocytes # 1.7 Monocytes # 0.4 Eosinophils # 0.2 Basophils # 0.0 Nucleated Red Blood Cells # 0.0 Sodium Level 143 Potassium Level 4.8 Chloride Level 96 L Carbon Dioxide Level 34 H Anion Gap 18 H Blood Urea Nitrogen 15 Creatinine 0.71 Glucose Level 88 Calcium Level 9.3 Total Bilirubin 0.3 Direct Bilirubin 0.00 Indirect Bilirubin 0.3 Aspartate Amino Transf (AST/SGOT) 28 Alanine Aminotransferase (ALT/SGPT) 24 Alkaline Phosphatase 72 Total Protein 7.0 Albumin 3.8 Globulin 3.20 Albumin/Globulin Ratio 1.18 Triglycerides Level 143 Cholesterol Level 183 LDL Cholesterol, Calculated 94 HDL Cholesterol 60 Cholesterol/HDL Ratio 3.0 Medications Medications Current Medications Atorvastatin Calcium (Lipitor) 10 mg QHS PO Last administered on 05/28/17t 21: 02; Admin Dose 10 MG; Start 05/28/17 at 21:00 Baclofen (Lioresal) 10 mg DAILY PO ; Start 05/28/17 at 09:00 Famotidine (Pepcid) 20 mg DAILY PO ; Start 05/28/17 at 09:00 Acetaminophen (Tylenol Tab) 650 mg Q4H PRN PO PAIN AND OR ELEVATED TEMP Last administered on 05/29/17 07:21; Admin Dose 650 MG; Start 05/28/17 at 08:30 Enoxaparin Sodium (Lovenox) 70 mg Q12 SC Last administered on 05/29/17 08:57; Admin Dose 70 MG; Start 05/28/17 at 11:00 Acetaminophen/ Hydrocodone Bitart ([place] (5/325)) 1 tab Q6H PRN PO PAIN LEVEL 6 -10; Start 05/28/17 at 08:30 JOHN BRINK May 29, 2017 14:49
--- NOTE | 2017-05-29 15:43 | PN ---
Date/Time of Note Date/Time of Note DATE: 05/29/17 TIME: 15:39 Assessment/Plan VTE Prophylaxis VTE Prophylaxis Intervention: SCD's Lines/Catheters IV [facility]from [facility] [place] Assessment/Plan Chief Complaint/Hosp Course Patient's complains of shortness of breath and tachycardia on exertion, comfortable at rest on supplemental oxygen. Problems: Assessment/Plan -Right upper lobe PE, continue Lovenox. Continue supplemental oxygen. Dr. Rodriguez is following in pulmonology consultation. -Hyperlipidemia, continue statin. Further recommendations based on clinical course. Plan of care discussed with Dr. Abarca. Exam/Review of Systems Vital Signs Vitals Vital Signs Date Time Temp Pulse Resp B/P Pulse Ox O2 Delivery O2 Flow Rate FiO2 05/29/17 12:22 97.9 71 18 101/49 95 05/29/17 08:01 Nasal Cannula 3.0 Intake and Output 05/28/17 05/28/17 05/29/17 15:00 23:00 07:00 Intake Total 880 ml 700 ml Balance 880 ml 700 ml Exam Constitutional: alert, oriented Head: normocephalic Neck: supple Respiratory: diminished breath sounds Cardiovascular: nl pulses Gastrointestinal: soft Extremities: normal pulses Neurological: nl mental status Results Result Diagram: 05/29/17 0742 05/29/17 0742 Results 24 hrs Laboratory Tests Test 05/29/17 07:42 White Blood Count 7.3 Red Blood Count 4.39 Hemoglobin 12.7 Hematocrit 41.0 Mean Corpuscular Volume 93.4 Mean Corpuscular Hemoglobin 28.9 L Mean Corpuscular Hemoglobin Concent 31.0 L Red Cell Distribution Width 12.7 Platelet Count 215 Mean Platelet Volume 9.2 Neutrophils % 66.8 Lymphocytes % 23.5 Monocytes % 6.0 Eosinophils % 2.9 Basophils % 0.5 Neutrophils # 4.9 Lymphocytes # 1.7 Monocytes # 0.4 Eosinophils # 0.2 Basophils # 0.0 Nucleated Red Blood Cells # 0.0 Sodium Level 143 Potassium Level 4.8 Chloride Level 96 L Carbon Dioxide Level 34 H Anion Gap 18 H Blood Urea Nitrogen 15 Creatinine 0.71 Glucose Level 88 Calcium Level 9.3 Total Bilirubin 0.3 Direct Bilirubin 0.00 Indirect Bilirubin 0.3 Aspartate Amino Transf (AST/SGOT) 28 Alanine Aminotransferase (ALT/SGPT) 24 Alkaline Phosphatase 72 Total Protein 7.0 Albumin 3.8 Globulin 3.20 Albumin/Globulin Ratio 1.18 Triglycerides Level 143 Cholesterol Level 183 LDL Cholesterol, Calculated 94 HDL Cholesterol 60 Cholesterol/HDL Ratio 3.0 Medications Medications Current Medications Atorvastatin Calcium (Lipitor) 10 mg QHS PO Last administered on 05/28/17 21: 02; Admin Dose 10 MG; Start 05/28/17 at 21:00 Baclofen (Lioresal) 10 mg DAILY PO ; Start 05/28/17 at 09:00 Famotidine (Pepcid) 20 mg DAILY PO ; Start 05/28/17 at 09:00 Acetaminophen (Tylenol Tab) 650 mg Q4H PRN PO PAIN AND OR ELEVATED TEMP Last administered on 05/29/17 15:00; Admin Dose 650 MG; Start 05/28/17 at 08:30 Enoxaparin Sodium (Lovenox) 70 mg Q12 SC Last administered on 05/29/17 08:57; Admin Dose 70 MG; Start 05/28/17 at 11:00 Acetaminophen/ Hydrocodone Bitart ([place] (5/325)) 1 tab Q6H PRN PO PAIN LEVEL 6 -10; Start 05/28/17 at 08:30 DORENE AGUIRRE May 29, 2017 15:43
[2017-05-29] MEDS: ATORVASTATIN 10 MG TAB PO SCH (20:59)
[2017-05-30] VITALS (11 sets, daily range): BP systolic 103–128; BP diastolic 53–68; PULSE 66–90; RESP 16–18
[2017-05-30 08:38] LABS: BASOPHILS % 0.5 % (0.0-2.0); EOSINOPHILS # 0.2 10^3/ul (0.0-0.5); HEMATOCRIT 39.4 % (37.0-47.0); HEMOGLOBIN 12.1 g/dl (12.0-16.0); LYMPHOCYTES # 1.5 10^3/ul (0.8-2.9); LYMPHOCYTES % 26.9 % (15.0-51.0); MEAN CORPUSCULAR HEMOGLOBIN 28.9 pg (29.0-33.0); MEAN CORPUSCULAR HGB CONC 30.7 g/dl (32.0-37.0); MEAN PLATELET VOLUME 9.2 fl (7.4-10.4); MONOCYTE # 0.4 10^3/ul (0.3-0.9); MONOCYTES % 6.6 % (0.0-11.0); NEUTROPHIL # 3.6 10^3/ul (1.6-7.5); NEUTROPHILS % 62.7 % (39.0-77.0); PLATELET COUNT 241 10^3/UL (140-415); RED BLOOD COUNT 4.19 10^6/ul (4.20-5.40); RED CELL DISTRIBUTION WIDTH 12.6 % (11.5-14.5); WHITE BLOOD COUNT 5.7 10^3/ul (4.8-10.8)
[2017-05-30] MEDS: BACLOFEN 10 MG TAB PO SCH (08:43)
[2017-05-30] MEDS: FAMOTIDINE 20 MG TAB PO SCH (08:43)
[2017-05-30] MEDS: ACETAMINOPHEN 325 MG TAB PO PRN (08:44)
[2017-05-30] MEDS: ENOXAPARIN 80 MG/0.8 ML SYG SC SCH ×2 (08:44→20:04)
[2017-05-30 08:55] LABS: CALCIUM 9.1 mg/dl (8.4-10.2); CREATININE 0.72 mg/dl (0.44-1.00); POTASSIUM 4.8 mmol/L (3.5-5.1)
--- NOTE | 2017-05-30 12:41 | CONS ---
Date/Time of Note Date/Time of Note DATE: 05/30/17 TIME: 12:39 Assessment/Plan Assessment/Plan Additional Assessment/Plan Assessment recommendations; 1. Patient admitted with shortness of breath discovered to have right upper lobe pulmonary embolism, currently on Lovenox with significant clinical improvement. 2. 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 Continue current treatment. Consultation Date/Type/Reason Admit Date/Time May 28, 2017 at 03:38 Initial Consult Date 05/29/17 Type of Consultation: Pulmonary 24 HR Interval Summary Free Text/Dictation Patient condition stable. Remains awake alert. Denies any shortness breath, chest pain, coughing. Any hemoptysis. General exam; elderly woman, awake alert currently in no distress. Exam/Review of Systems Vital Signs Vitals Vital Signs Date Time Temp Pulse Resp B/P Pulse Ox O2 Delivery O2 Flow Rate FiO2 05/30/17 12:27 66 05/30/17 11:53 98.4 17 111/53 95 05/30/17 08:10 Nasal Cannula 3.0 Intake and Output 05/29/17 05/29/17 05/30/17 15:00 23:00 07:00 Intake Total 800 ml 600 ml Balance 800 ml 600 ml Exam HEENT exam; supple neck, no JVD. No lymphadenopathy. Midline trachea. No thyromegaly. Patient is edentulous and wears dentures. Has bilateral intraocular lens implants. Chest exam; diminished breath sounds left lung. Right lung is clear to auscultation. S1-S2 audible, no murmurs. Regular rhythm. Abdomen exam; soft, nontender. No organomegaly. Bowel sounds audible. Extremity exam; no peripheral edema. CLINIC LPN exam; no focal deficit. Results Result Diagram: 05/30/17 0710 05/30/17 0710 Results 24 hrs Laboratory Tests Test 05/30/17 07:10 White Blood Count 5.7 # Red Blood Count 4.19 L Hemoglobin 12.1 Hematocrit 39.4 Mean Corpuscular Volume 94.0 Mean Corpuscular Hemoglobin 28.9 L Mean Corpuscular Hemoglobin Concent 30.7 L Red Cell Distribution Width 12.6 Platelet Count 241 Mean Platelet Volume 9.2 Neutrophils % 62.7 Lymphocytes % 26.9 Monocytes % 6.6 Eosinophils % 3.0 Basophils % 0.5 Nucleated Red Blood Cells % 0.0 Neutrophils # 3.6 Lymphocytes # 1.5 Monocytes # 0.4 Eosinophils # 0.2 Basophils # 0.0 Nucleated Red Blood Cells # 0.0 Sodium Level 143 Potassium Level 4.8 Chloride Level 96 L Carbon Dioxide Level 35 H Anion Gap 17 H Blood Urea Nitrogen 17 Creatinine 0.72 Glucose Level 86 Calcium Level 9.1 Medications Medications Current Medications Atorvastatin Calcium (Lipitor) 10 mg QHS PO Last administered on 05/29/17 20: 59; Admin Dose 10 MG; Start 05/28/17 at 21:00 Baclofen (Lioresal) 10 mg DAILY PO Last administered on 05/30/17 08:43; Admin Dose 10 MG; Start 05/28/17 at 09:00 Famotidine (Pepcid) 20 mg DAILY PO Last administered on 05/30/17 08:43; Admin Dose 20 MG; Start 05/28/17 at 09:00 Acetaminophen (Tylenol Tab) 650 mg Q4H PRN PO PAIN AND OR ELEVATED TEMP Last administered on 05/30/17 08:44; Admin Dose 650 MG; Start 05/28/17 at 08:30 Enoxaparin Sodium (Lovenox) 70 mg Q12 SC Last administered on 05/30/17 08:44; Admin Dose 70 MG; Start 05/28/17 at 11:00 Acetaminophen/ Hydrocodone Bitart ([place] (5/325)) 1 tab Q6H PRN PO PAIN LEVEL 6 -10; Start 05/28/17 at 08:30 JOHN BRINK May 30, 2017 12:41
--- NOTE | 2017-05-30 15:43 | PN ---
Date/Time of Note Date/Time of Note DATE: 05/30/17 TIME: 15:42 Assessment/Plan VTE Prophylaxis VTE Prophylaxis Intervention: other Lines/Catheters [facility] Saline Lock Urinary Cath still in place: No Assessment/Plan Assessment/Plan -Right upper lobe PE, continue Lovenox. Continue supplemental oxygen. Dr. Rodriguez is following in pulmonology consultation. -Hyperlipidemia, continue statin. Further recommendations based on clinical course. Plan of care discussed with Dr. Abarca. Subjective 24 Hr Interval Summary Free Text/Dictation sitting up in chair, no shortness of breath at rest noted, able to talk in full sentences. dw staff- nonew events reported overnight. Constitutional: requiring O2 Respiratory: shortness of breath Cardiovascular: no complaints Gastrointestinal: no complaints Genitourinary: no complaints Musculoskeletal: no complaints Skin: no complaints Exam/Review of Systems Vital Signs Vitals Vital Signs Date Time Temp Pulse Resp B/P Pulse Ox O2 Delivery O2 Flow Rate FiO2 05/30/17 12:27 66 05/30/17 11:53 98.4 17 111/53 95 05/30/17 08:10 Nasal Cannula 3.0 Intake and Output 05/29/17 05/29/17 05/30/17 15:00 23:00 07:00 Intake Total 800 ml 600 ml Balance 800 ml 600 ml Exam Constitutional: alert, oriented, well developed Respiratory: clear to auscultation, normal air movement Cardiovascular: nl pulses, regular rate and rhythm Gastrointestinal: soft Musculoskeletal: nl extremities to inspection Neurological: nl mental status, nl speech Results Result Diagram: 05/30/17 0710 05/30/17 0710 Results 24 hrs Laboratory Tests Test 05/30/17 07:10 White Blood Count 5.7 # Red Blood Count 4.19 L Hemoglobin 12.1 Hematocrit 39.4 Mean Corpuscular Volume 94.0 Mean Corpuscular Hemoglobin 28.9 L Mean Corpuscular Hemoglobin Concent 30.7 L Red Cell Distribution Width 12.6 Platelet Count 241 Mean Platelet Volume 9.2 Neutrophils % 62.7 Lymphocytes % 26.9 Monocytes % 6.6 Eosinophils % 3.0 Basophils % 0.5 Nucleated Red Blood Cells % 0.0 Neutrophils # 3.6 Lymphocytes # 1.5 Monocytes # 0.4 Eosinophils # 0.2 Basophils # 0.0 Nucleated Red Blood Cells # 0.0 Sodium Level 143 Potassium Level 4.8 Chloride Level 96 L Carbon Dioxide Level 35 H Anion Gap 17 H Blood Urea Nitrogen 17 Creatinine 0.72 Glucose Level 86 Calcium Level 9.1 Medications Medications Current Medications Atorvastatin Calcium (Lipitor) 10 mg QHS PO Last administered on 05/29/17 20: 59; Admin Dose 10 MG; Start 05/28/17 at 21:00 Baclofen (Lioresal) 10 mg DAILY PO Last administered on 05/30/17 08:43; Admin Dose 10 MG; Start 05/28/17 at 09:00 Famotidine (Pepcid) 20 mg DAILY PO Last administered on 05/30/17 08:43; Admin Dose 20 MG; Start 05/28/17 at 09:00 Acetaminophen (Tylenol Tab) 650 mg Q4H PRN PO PAIN AND OR ELEVATED TEMP Last administered on 05/30/17 08:44; Admin Dose 650 MG; Start 05/28/17 at 08:30 Enoxaparin Sodium (Lovenox) 70 mg Q12 SC Last administered on 05/30/17 08:44; Admin Dose 70 MG; Start 05/28/17 at 11:00 Acetaminophen/ Hydrocodone Bitart ([place] (5/325)) 1 tab Q6H PRN PO PAIN LEVEL 6 -10; Start 05/28/17 at 08:30 LUIS MANUEL RAMIREZ May 30, 2017 15:43
[2017-05-30] MEDS: ATORVASTATIN 10 MG TAB PO SCH (20:03)
[2017-05-31 02:27] VITALS: BP 107/46; RESP 16
[2017-05-31 06:44] LABS: BASOPHILS % 0.5 % (0.0-2.0); EOSINOPHILS # 0.2 10^3/ul (0.0-0.5); EOSINOPHILS % 3.3 % (0.0-7.0); HEMATOCRIT 38.5 % (37.0-47.0); HEMOGLOBIN 11.7 g/dl (12.0-16.0); LYMPHOCYTES # 1.6 10^3/ul (0.8-2.9); LYMPHOCYTES % 27.9 % (15.0-51.0); MEAN CORPUSCULAR HEMOGLOBIN 28.8 pg (29.0-33.0); MEAN CORPUSCULAR HGB CONC 30.4 g/dl (32.0-37.0); MEAN CORPUSCULAR VOLUME 94.8 fl (82.0-101.0); MEAN PLATELET VOLUME 9.1 fl (7.4-10.4); MONOCYTE # 0.4 10^3/ul (0.3-0.9); MONOCYTES % 7.4 % (0.0-11.0); NEUTROPHIL # 3.5 10^3/ul (1.6-7.5); NEUTROPHILS % 60.7 % (39.0-77.0); PLATELET COUNT 224 10^3/UL (140-415); RED BLOOD COUNT 4.06 10^6/ul (4.20-5.40); RED CELL DISTRIBUTION WIDTH 12.7 % (11.5-14.5); WHITE BLOOD COUNT 5.8 10^3/ul (4.8-10.8)
[2017-05-31 07:00] LABS: CALCIUM 8.9 mg/dl (8.4-10.2); CREATININE 0.74 mg/dl (0.44-1.00); POTASSIUM 4.9 mmol/L (3.5-5.1)
[2017-05-31] MEDS: ACETAMINOPHEN 325 MG TAB PO PRN (07:34)
[2017-05-31 08:00] VITALS: BP 109/54; RESP 20
[2017-05-31] MEDS: BACLOFEN 10 MG TAB PO SCH (09:09)
[2017-05-31] MEDS: FAMOTIDINE 20 MG TAB PO SCH (09:09)
[2017-05-31] MEDS: ENOXAPARIN 80 MG/0.8 ML SYG SC SCH ×2 (09:10→21:26)
--- NOTE | 2017-05-31 12:26 | CONS ---
Date/Time of Note Date/Time of Note DATE: 05/31/17 TIME: 12:25 Assessment/Plan Assessment/Plan Additional Assessment/Plan Assessment and recommendations; 1. Patient admitted with shortness of breath discovered to have right upper lobe pulmonary embolism. Currently on full dose Lovenox. 2. 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 Patient however quite asymptomatic from that perspective. Continue current treatment. Consider administration of apixaban on long-term basis. Consultation Date/Type/Reason Admit Date/Time May 28, 2017 at 03:38 Initial Consult Date 05/29/17 Type of Consultation: Pulmonary 24 HR Interval Summary Free Text/Dictation Patient condition is stable. Denies any shortness of breath, chest pain, coughing wheezing or sputum production. Denies any hemoptysis. General exam; elderly woman, awake alert currently in no distress. Exam/Review of Systems Vital Signs Vitals Vital Signs Date Time Temp Pulse Resp B/P Pulse Ox O2 Delivery O2 Flow Rate FiO2 05/31/17 08:00 99.1 92 20 109/54 94 05/30/17 22:26 1.0 05/30/17 19:56 Nasal Cannula Intake and Output 05/30/17 05/30/17 05/31/17 15:00 23:00 07:00 Intake Total 600 ml 120 ml Balance 600 ml 120 ml Exam HEENT exam; supple neck, no JVD. No lymphadenopathy. Midline trachea. No thyromegaly. Pharynx is clear. Chest exam; diminished breath sounds left lower lobe. Rest of the lung crowe are clear. S1-S2 audible, no murmurs. Regular rhythm. Abdomen exam; soft, no organomegaly. Bowel sounds audible. Extremity exam; no peripheral edema. 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 Results Result Diagram: 05/31/1724 05/31/17 0524 Results 24 hrs Laboratory Tests Test 05/31/17 05:24 White Blood Count 5.8 Red Blood Count 4.06 L Hemoglobin 11.7 L Hematocrit 38.5 Mean Corpuscular Volume 94.8 Mean Corpuscular Hemoglobin 28.8 L Mean Corpuscular Hemoglobin Concent 30.4 L Red Cell Distribution Width 12.7 Platelet Count 224 Mean Platelet Volume 9.1 Neutrophils % 60.7 Lymphocytes % 27.9 Monocytes % 7.4 Eosinophils % 3.3 Basophils % 0.5 Nucleated Red Blood Cells % 0.0 Neutrophils # 3.5 Lymphocytes # 1.6 Monocytes # 0.4 Eosinophils # 0.2 Basophils # 0.0 Nucleated Red Blood Cells # 0.0 Sodium Level 143 Potassium Level 4.9 Chloride Level 97 Carbon Dioxide Level 36 H Anion Gap 15 Blood Urea Nitrogen 16 Creatinine 0.74 Glucose Level 94 Calcium Level 8.9 Medications Medications Current Medications Atorvastatin Calcium (Lipitor) 10 mg QHS PO Last administered on 05/30/17 20: 03; Admin Dose 10 MG; Start 05/28/17 at 21:00 Baclofen (Lioresal) 10 mg DAILY PO Last administered on 05/31/17 09:09; Admin Dose 10 MG; Start 05/28/17 at 09:00 Famotidine (Pepcid) 20 mg DAILY PO Last administered on 05/31/17 09:09; Admin Dose 20 MG; Start 05/28/17 at 09:00 Acetaminophen (Tylenol Tab) 650 mg Q4H PRN PO PAIN AND OR ELEVATED TEMP Last administered on 05/31/17 07:34; Admin Dose 650 MG; Start 05/28/17 at 08:30 Enoxaparin Sodium (Lovenox) 70 mg Q12 SC Last administered on 05/31/17 09:10; Admin Dose 70 MG; Start 05/28/17 at 11:00 Acetaminophen/ Hydrocodone Bitart ([place] (5/325)) 1 tab Q6H PRN PO PAIN LEVEL 6 -10; Start 05/28/17 at 08:30 JOHN BRINK May 31, 2017 12:26
[2017-05-31 14:00] VITALS: BP 118/57; RESP 19
--- NOTE | 2017-05-31 15:10 | PN ---
Date/Time of Note Date/Time of Note DATE: 05/31/17 TIME: 15:10 Assessment/Plan VTE Prophylaxis VTE Prophylaxis Intervention: other Lines/Catheters [facility] Type [facility]from [facility] Saline Lock Urinary Cath still in place: No Assessment/Plan Assessment/Plan -Right upper lobe PE, continue Lovenox. Continue supplemental oxygen. Dr. Rodriguez is following in pulmonology consultation. -Hyperlipidemia, continue statin. Further recommendations based on clinical course. Plan of care discussed with Dr. Abarca. Subjective 24 Hr Interval Summary Free Text/Dictation sitting up in bed, no shortness of breath at rest noted, able to talk in full sentences. pulmonary follows, dw staff- no new events reported overnight. Respiratory: shortness of breath (on exertion) Cardiovascular: no complaints Gastrointestinal: no complaints Musculoskeletal: no complaints Exam/Review of Systems Vital Signs Vitals Vital Signs Date Time Temp Pulse Resp B/P Pulse Ox O2 Delivery O2 Flow Rate FiO2 05/31/17 08:00 99.1 92 20 109/54 94 05/31/17 08:00 Nasal Cannula 2.0 Intake and Output 05/30/17 05/30/17 05/31/17 15:00 23:00 07:00 Intake Total 600 ml 120 ml Balance 600 ml 120 ml Exam Constitutional: alert, well developed Respiratory: diminished breath sounds Cardiovascular: nl pulses, regular rate and rhythm Gastrointestinal: non-tender, soft Musculoskeletal: nl extremities to inspection Extremities: normal pulses Neurological: nl mental status, nl speech Skin: nl turgor Results Result Diagram: 05/31/17 0524 05/31/17 0524 Results 24 hrs Laboratory Tests Test 05/31/17 05:24 White Blood Count 5.8 Red Blood Count 4.06 L Hemoglobin 11.7 L Hematocrit 38.5 Mean Corpuscular Volume 94.8 Mean Corpuscular Hemoglobin 28.8 L Mean Corpuscular Hemoglobin Concent 30.4 L Red Cell Distribution Width 12.7 Platelet Count 224 Mean Platelet Volume 9.1 Neutrophils % 60.7 Lymphocytes % 27.9 Monocytes % 7.4 Eosinophils % 3.3 Basophils % 0.5 Nucleated Red Blood Cells % 0.0 Neutrophils # 3.5 Lymphocytes # 1.6 Monocytes # 0.4 Eosinophils # 0.2 Basophils # 0.0 Nucleated Red Blood Cells # 0.0 Sodium Level 143 Potassium Level 4.9 Chloride Level 97 Carbon Dioxide Level 36 H Anion Gap 15 Blood Urea Nitrogen 16 Creatinine 0.74 Glucose Level 94 Calcium Level 8.9 Medications Medications Current Medications Atorvastatin Calcium (Lipitor) 10 mg QHS PO Last administered on 05/30/17 20: 03; Admin Dose 10 MG; Start 05/28/17 at 21:00 Baclofen (Lioresal) 10 mg DAILY PO Last administered on 05/31/17 09:09; Admin Dose 10 MG; Start 05/28/17 at 09:00 Famotidine (Pepcid) 20 mg DAILY PO Last administered on 05/31/17 09:09; Admin Dose 20 MG; Start 05/28/17 at 09:00 Acetaminophen (Tylenol Tab) 650 mg Q4H PRN PO PAIN AND OR ELEVATED TEMP Last administered on 05/31/17 07:34; Admin Dose 650 MG; Start 05/28/17 at 08:30 Enoxaparin Sodium (Lovenox) 70 mg Q12 SC Last administered on 05/31/17 09:10; Admin Dose 70 MG; Start 05/28/17 at 11:00 Acetaminophen/ Hydrocodone Bitart ([place] (5/325)) 1 tab Q6H PRN PO PAIN LEVEL 6 -10; Start 05/28/17 at 08:30 LUIS MANUEL RAMIREZ May 31, 2017 15:10
[2017-05-31 20:35] VITALS: BP 119/72; RESP 16
[2017-05-31] MEDS: ATORVASTATIN 10 MG TAB PO SCH (21:25)
[2017-06-01 02:57] VITALS: BP 112/55; RESP 18
[2017-06-01] MEDS: ACETAMINOPHEN 325 MG TAB PO PRN (04:03)
[2017-06-01 06:01] LABS: BASOPHILS % 0.8 % (0.0-2.0); EOSINOPHILS # 0.2 10^3/ul (0.0-0.5); EOSINOPHILS % 4.1 % (0.0-7.0); HEMATOCRIT 37.9 % (37.0-47.0); HEMOGLOBIN 11.5 g/dl (12.0-16.0); LYMPHOCYTES # 1.9 10^3/ul (0.8-2.9); LYMPHOCYTES % 36.2 % (15.0-51.0); MEAN CORPUSCULAR HEMOGLOBIN 28.6 pg (29.0-33.0); MEAN CORPUSCULAR HGB CONC 30.3 g/dl (32.0-37.0); MEAN CORPUSCULAR VOLUME 94.3 fl (82.0-101.0); MEAN PLATELET VOLUME 9.3 fl (7.4-10.4); MONOCYTE # 0.5 10^3/ul (0.3-0.9); MONOCYTES % 9.6 % (0.0-11.0); NEUTROPHIL # 2.5 10^3/ul (1.6-7.5); NEUTROPHILS % 48.9 % (39.0-77.0); PLATELET COUNT 221 10^3/UL (140-415); RED BLOOD COUNT 4.02 10^6/ul (4.20-5.40); RED CELL DISTRIBUTION WIDTH 12.7 % (11.5-14.5); WHITE BLOOD COUNT 5.1 10^3/ul (4.8-10.8)
[2017-06-01 06:39] LABS: CALCIUM 8.9 mg/dl (8.4-10.2); CREATININE 0.85 mg/dl (0.44-1.00); POTASSIUM 5.2 mmol/L (3.5-5.1)
[2017-06-01 08:00] VITALS: BP 136/58; RESP 18
[2017-06-01] MEDS: BACLOFEN 10 MG TAB PO SCH (08:32)
[2017-06-01] MEDS: FAMOTIDINE 20 MG TAB PO SCH (08:32)
[2017-06-01] MEDS: ENOXAPARIN 80 MG/0.8 ML SYG SC SCH ×2 (08:33→21:00)
[2017-06-01] MEDS ORDERED: NA POLYST SULFON 15 GM/60 ML BTL PO ONE (11:30)
[2017-06-01 14:25] VITALS: BP 145/65; RESP 16
--- NOTE | 2017-06-01 16:48 | CONS ---
Date/Time of Note Date/Time of Note DATE: 06/01/17 TIME: 16:47 Consult Date/Type/Reason Admit Date/Time May 28, 2017 at 03:38 Initial Consult Date 05/29/17 Type of Consultation: Pulmonary Subjective Patient comfortable this morning no new events Objective Vital Signs Date Time Temp Pulse Resp B/P Pulse Ox O2 Delivery O2 Flow Rate FiO2 06/01/17 14:25 98.4 82 16 145/65 92 06/01/17 08:00 Nasal Cannula 2.0 Intake and Output 05/31/17 05/31/17 06/01/17 15:00 23:00 07:00 Intake Total 1100 ml 640 ml Balance 1100 ml 640 ml Exam GENERAL: Elderly lady comfortable no new events VITAL SIGNS: per chart NECK: Supple. No JVD or lymphadenopathy. CARDIAC EXAM: S1, S2. No added sounds or murmurs. CHEST: clear bilaterally, No added sounds, rales or wheezes ABDOMEN: Soft, nontender. No guarding or rebound. EXTREMITIES: No cyanosis, clubbing or edema. NEUROLOGIC: Generalized weakness. No focal deficits. Results/Medications Result Diagram: 06/01/17 0426 06/01/17 0426 Results 24 hrs Laboratory Tests Test 06/01/17 04:26 White Blood Count 5.1 Red Blood Count 4.02 L Hemoglobin 11.5 L Hematocrit 37.9 Mean Corpuscular Volume 94.3 Mean Corpuscular Hemoglobin 28.6 L Mean Corpuscular Hemoglobin Concent 30.3 L Red Cell Distribution Width 12.7 Platelet Count 221 Mean Platelet Volume 9.3 Neutrophils % 48.9 Lymphocytes % 36.2 Monocytes % 9.6 Eosinophils % 4.1 Basophils % 0.8 Nucleated Red Blood Cells % 0.0 Neutrophils # 2.5 Lymphocytes # 1.9 Monocytes # 0.5 Eosinophils # 0.2 Basophils # 0.0 Nucleated Red Blood Cells # 0.0 Sodium Level 143 Potassium Level 5.2 H Chloride Level 99 Carbon Dioxide Level 36 H Anion Gap 13 Blood Urea Nitrogen 16 Creatinine 0.85 Glucose Level 100 Calcium Level 8.9 Medications Current Medications Atorvastatin Calcium (Lipitor) 10 mg QHS PO Last administered on 05/31/17 21: 25; Admin Dose 10 MG; Start 05/28/17 at 21:00 Baclofen (Lioresal) 10 mg DAILY PO Last administered on 06/01/17 08:32; Admin Dose 10 MG; Start 05/28/17 at 09:00 Famotidine (Pepcid) 20 mg DAILY PO Last administered on 06/01/17 08:32; Admin Dose 20 MG; Start 05/28/17 at 09:00 Acetaminophen (Tylenol Tab) 650 mg Q4H PRN PO PAIN AND OR ELEVATED TEMP Last administered on 06/01/17 04:03; Admin Dose 650 MG; Start 05/28/17 at 08:30 Enoxaparin Sodium (Lovenox) 70 mg Q12 SC Last administered on 06/01/17 08:33; Admin Dose 70 MG; Start 05/28/17 at 11:00 Acetaminophen/ Hydrocodone Bitart ([place] (5/325)) 1 tab Q6H PRN PO PAIN LEVEL 6 -10; Start 05/28/17 at 08:30 Assessment/Plan Chief Complaint/Hosp Course Assessment. 1. Acute pulmonary embolus 2. Hypoxemia secondary to above Plan 1. Continue anticoagulation 2. Decrease oxygen as tolerated 3. Anticipate discharge soon. Problems: SADAF PIERCE MD, [facility] Jun 01, 2017 16:48
--- NOTE | 2017-06-01 19:30 | PN ---
Date/Time of Note Date/Time of Note DATE: 06/01/17 TIME: 19:27 Assessment/Plan VTE Prophylaxis VTE Prophylaxis Intervention: SCD's Lines/Catheters [facility] Saline Lock Urinary Cath still in place: No Assessment/Plan Chief Complaint/Hosp Course Patient denies any shortness of breath, comfortable and supplemental oxygen, potassium is 5.2 status post Kayexalate, with good response, will monitor electrolytes. Plan of care was discussed with patient and patient's family at the bedside. Assessment/Plan -Right upper lobe PE, continue Lovenox. Continue supplemental oxygen. Dr. Rodriguez is following in pulmonology consultation. -Hyperlipidemia, continue statin. -Hyperkalemia status post Kayexalate. Further recommendations based on clinical course. Plan of care discussed with Dr. Abarca. Problems: Exam/Review of Systems Vital Signs Vitals Vital Signs Date Time Temp Pulse Resp B/P Pulse Ox O2 Delivery O2 Flow Rate FiO2 06/01/17 14:25 98.4 82 16 145/65 92 06/01/17 08:00 Nasal Cannula 2.0 Intake and Output 05/31/17 05/31/17 06/01/17 15:00 23:00 07:00 Intake Total 1100 ml 640 ml Balance 1100 ml 640 ml Exam Constitutional: alert, oriented Head: normocephalic Neck: supple Respiratory: diminished breath sounds Cardiovascular: nl pulses Gastrointestinal: soft Extremities: normal pulses Neurological: nl mental status Results Result Diagram: 06/01/17 0426 06/01/17 0426 Results 24 hrs Laboratory Tests Test 06/01/17 04:26 White Blood Count 5.1 Red Blood Count 4.02 L Hemoglobin 11.5 L Hematocrit 37.9 Mean Corpuscular Volume 94.3 Mean Corpuscular Hemoglobin 28.6 L Mean Corpuscular Hemoglobin Concent 30.3 L Red Cell Distribution Width 12.7 Platelet Count 221 Mean Platelet Volume 9.3 Neutrophils % 48.9 Lymphocytes % 36.2 Monocytes % 9.6 Eosinophils % 4.1 Basophils % 0.8 Nucleated Red Blood Cells % 0.0 Neutrophils # 2.5 Lymphocytes # 1.9 Monocytes # 0.5 Eosinophils # 0.2 Basophils # 0.0 Nucleated Red Blood Cells # 0.0 Sodium Level 143 Potassium Level 5.2 H Chloride Level 99 Carbon Dioxide Level 36 H Anion Gap 13 Blood Urea Nitrogen 16 Creatinine 0.85 Glucose Level 100 Calcium Level 8.9 Medications Medications Current Medications Atorvastatin Calcium (Lipitor) 10 mg QHS PO Last administered on 05/31/17 21: 25; Admin Dose 10 MG; Start 05/28/17 at 21:00 Baclofen (Lioresal) 10 mg DAILY PO Last administered on 06/01/17 08:32; Admin Dose 10 MG; Start 05/28/17 at 09:00 Famotidine (Pepcid) 20 mg DAILY PO Last administered on 06/01/17 08:32; Admin Dose 20 MG; Start 05/28/17 at 09:00 Acetaminophen (Tylenol Tab) 650 mg Q4H PRN PO PAIN AND OR ELEVATED TEMP Last administered on 06/01/17 04:03; Admin Dose 650 MG; Start 05/28/17 at 08:30 Enoxaparin Sodium (Lovenox) 70 mg Q12 SC Last administered on 06/01/17 08:33; Admin Dose 70 MG; Start 05/28/17 at 11:00 Acetaminophen/ Hydrocodone Bitart ([place] (5/325)) 1 tab Q6H PRN PO PAIN LEVEL 6 -10; Start 05/28/17 at 08:30 DOREEN AGUIRRE Jun 01, 2017 19:30
[2017-06-01 20:30] VITALS: BP 127/58; RESP 20
[2017-06-01] MEDS: ATORVASTATIN 10 MG TAB PO SCH (21:00)
[2017-06-02 02:00] VITALS: BP 130/67; RESP 20
[2017-06-02] MEDS: ACETAMINOPHEN 325 MG TAB PO PRN ×2 (02:16→20:15)
[2017-06-02 05:52] LABS: BASOPHILS % 0.8 % (0.0-2.0); EOSINOPHILS # 0.2 10^3/ul (0.0-0.5); EOSINOPHILS % 3.6 % (0.0-7.0); HEMATOCRIT 36.9 % (37.0-47.0); HEMOGLOBIN 11.1 g/dl (12.0-16.0); LYMPHOCYTES # 1.9 10^3/ul (0.8-2.9); LYMPHOCYTES % 35.4 % (15.0-51.0); MEAN CORPUSCULAR HGB CONC 30.1 g/dl (32.0-37.0); MEAN CORPUSCULAR VOLUME 93.2 fl (82.0-101.0); MONOCYTE # 0.5 10^3/ul (0.3-0.9); MONOCYTES % 8.6 % (0.0-11.0); NEUTROPHIL # 2.7 10^3/ul (1.6-7.5); NEUTROPHILS % 51.2 % (39.0-77.0); PLATELET COUNT 205 10^3/UL (140-415); RED BLOOD COUNT 3.96 10^6/ul (4.20-5.40); RED CELL DISTRIBUTION WIDTH 12.7 % (11.5-14.5); WHITE BLOOD COUNT 5.3 10^3/ul (4.8-10.8)
[2017-06-02 06:42] LABS: CALCIUM 8.8 mg/dl (8.4-10.2); CREATININE 0.81 mg/dl (0.44-1.00); POTASSIUM 4.5 mmol/L (3.5-5.1)
[2017-06-02 08:00] VITALS: BP 116/71; RESP 18
[2017-06-02] MEDS: BACLOFEN 10 MG TAB PO SCH (09:31)
[2017-06-02] MEDS: FAMOTIDINE 20 MG TAB PO SCH (09:31)
[2017-06-02] MEDS: ENOXAPARIN 80 MG/0.8 ML SYG SC SCH (09:31)
--- NOTE | 2017-06-02 10:40 | CONS ---
Date/Time of Note Date/Time of Note DATE: 06/02/17 TIME: 10:38 Assessment/Plan Assessment/Plan Additional Assessment/Plan Assessment and recommendations; 1. Patient admitted for shortness of breath discovered to have right upper lobe pulmonary embolism. Currently on Lovenox at full dosing. With significant clinical improvement. 2. Left diaphragmatic herniation with most of the abdominal contents in the left chest cavity, however this underlying pathology is not causing any symptoms to the patient. Continue current treatment. Anticipate discharge home soon. Consultation Date/Type/Reason Admit Date/Time May 28, 2017 at 03:38 Initial Consult Date 05/29/17 Type of Consultation: Pulmonary 24 HR Interval Summary Free Text/Dictation Patient condition is stable. Denies any shortness of breath. Any chest pain. Coughing or hemoptysis. General exam; elderly woman, awake and alert, currently in no distress. Exam/Review of Systems Vital Signs Vitals Vital Signs Date Time Temp Pulse Resp B/P Pulse Ox O2 Delivery O2 Flow Rate FiO2 06/02/17 08:00 98.0 92 18 116/71 93 06/01/17 08:00 Nasal Cannula 2.0 Intake and Output 06/01/17 06/01/17 06/02/17 15:00 23:00 07:00 Intake Total 850 ml 800 ml Balance 850 ml 800 ml Exam HEENT exam; supple neck, no JVD. No lymphadenopathy. Midline trachea. No thyromegaly. Chest exam; diminished breath sound left lower lobe. Rest of the lung crowe are clear. S1-S2 audible, no murmurs. Regular rhythm. Abdomen exam; soft, no organomegaly. Bowel sounds audible. Nontender. Extremity exam; no peripheral edema. 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 Results Result Diagram: 06/02/17 0529 06/02/17 0529 Results 24 hrs Laboratory Tests Test 06/02/17 05:29 White Blood Count 5.3 Red Blood Count 3.96 L Hemoglobin 11.1 L Hematocrit 36.9 L Mean Corpuscular Volume 93.2 Mean Corpuscular Hemoglobin 28.0 L Mean Corpuscular Hemoglobin Concent 30.1 L Red Cell Distribution Width 12.7 Platelet Count 205 Mean Platelet Volume 9.0 Neutrophils % 51.2 Lymphocytes % 35.4 Monocytes % 8.6 Eosinophils % 3.6 Basophils % 0.8 Nucleated Red Blood Cells % 0.0 Neutrophils # 2.7 Lymphocytes # 1.9 Monocytes # 0.5 Eosinophils # 0.2 Basophils # 0.0 Nucleated Red Blood Cells # 0.0 Sodium Level 144 Potassium Level 4.5 Chloride Level 99 Carbon Dioxide Level 36 H Anion Gap 14 Blood Urea Nitrogen 17 Creatinine 0.81 Glucose Level 97 Calcium Level 8.8 Medications Medications Current Medications Atorvastatin Calcium (Lipitor) 10 mg QHS PO Last administered on 06/01/17 21: 00; Admin Dose 10 MG; Start 05/28/17 at 21:00 Baclofen (Lioresal) 10 mg DAILY PO Last administered on 06/02/17 09:31; Admin Dose 10 MG; Start 05/28/17 at 09:00 Famotidine (Pepcid) 20 mg DAILY PO Last administered on 06/02/17 09:31; Admin Dose 20 MG; Start 05/28/17 at 09:00 Acetaminophen (Tylenol Tab) 650 mg Q4H PRN PO PAIN AND OR ELEVATED TEMP Last administered on 06/02/17 02:16; Admin Dose 650 MG; Start 05/28/17 at 08:30 Enoxaparin Sodium (Lovenox) 70 mg Q12 SC Last administered on 06/02/17 09:31; Admin Dose 70 MG; Start 05/28/17 at 11:00 Acetaminophen/ Hydrocodone Bitart ([place] (5/325)) 1 tab Q6H PRN PO PAIN LEVEL 6 -10; Start 05/28/17 at 08:30 JOHN BRINK Jun 02, 2017 10:40
[2017-06-02 14:00] VITALS: BP 106/53; RESP 19
--- NOTE | 2017-06-02 17:35 | PN ---
Date/Time of Note Date/Time of Note DATE: 06/02/17 TIME: 17:33 Assessment/Plan VTE Prophylaxis VTE Prophylaxis Intervention: SCD's Lines/Catheters IV Catheter Type (from [facility] Saline Lock Urinary Cath still in place: No Assessment/Plan Chief Complaint/Hosp Course Patient denies any shortness of breath denies chest pain, potassium is 4.5. Assessment/Plan -Right upper lobe PE, start Eliquis. Dr. Rodriguez is following in pulmonology consultation. -Hyperlipidemia, continue statin. -Hyperkalemia, resolved. Further recommendations based on clinical course. Plan of care discussed with Dr. Abarca. Problems: Exam/Review of Systems Vital Signs Vitals Vital Signs Date Time Temp Pulse Resp B/P Pulse Ox O2 Delivery O2 Flow Rate FiO2 06/02/17 14:00 98.1 74 19 106/53 100 06/01/17 08:00 Nasal Cannula 2.0 Intake and Output 06/01/17 06/01/17 06/02/17 15:00 23:00 07:00 Intake Total 850 ml 800 ml Balance 850 ml 800 ml Exam Constitutional: alert, oriented Head: normocephalic Neck: supple Respiratory: diminished breath sounds Cardiovascular: nl pulses Gastrointestinal: soft Extremities: normal pulses Neurological: nl mental status Results Result Diagram: 06/02/17 0529 06/02/17 0529 Results 24 hrs Laboratory Tests Test 06/02/17 05:29 White Blood Count 5.3 Red Blood Count 3.96 L Hemoglobin 11.1 L Hematocrit 36.9 L Mean Corpuscular Volume 93.2 Mean Corpuscular Hemoglobin 28.0 L Mean Corpuscular Hemoglobin Concent 30.1 L Red Cell Distribution Width 12.7 Platelet Count 205 Mean Platelet Volume 9.0 Neutrophils % 51.2 Lymphocytes % 35.4 Monocytes % 8.6 Eosinophils % 3.6 Basophils % 0.8 Nucleated Red Blood Cells % 0.0 Neutrophils # 2.7 Lymphocytes # 1.9 Monocytes # 0.5 Eosinophils # 0.2 Basophils # 0.0 Nucleated Red Blood Cells # 0.0 Sodium Level 144 Potassium Level 4.5 Chloride Level 99 Carbon Dioxide Level 36 H Anion Gap 14 Blood Urea Nitrogen 17 Creatinine 0.81 Glucose Level 97 Calcium Level 8.8 Medications Medications Current Medications Atorvastatin Calcium (Lipitor) 10 mg QHS PO Last administered on 06/01/17t 21: 00; Admin Dose 10 MG; Start 05/28/17 at 21:00 Baclofen (Lioresal) 10 mg DAILY PO Last administered on 06/02/17 09:31; Admin Dose 10 MG; Start 05/28/17 at 09:00 Famotidine (Pepcid) 20 mg DAILY PO Last administered on 06/02/17 09:31; Admin Dose 20 MG; Start 05/28/17 at 09:00 Acetaminophen (Tylenol Tab) 650 mg Q4H PRN PO PAIN AND OR ELEVATED TEMP Last administered on 06/02/17 02:16; Admin Dose 650 MG; Start 05/28/17 at 08:30 Enoxaparin Sodium (Lovenox) 70 mg Q12 SC Last administered on 06/02/17 09:31; Admin Dose 70 MG; Start 05/28/17 at 11:00 Acetaminophen/ Hydrocodone Bitart ([place] (5/325)) 1 tab Q6H PRN PO PAIN LEVEL 6 -10; Start 05/28/17 at 08:30 DORENE AGUIRRE Jun 02, 2017 17:35
[2017-06-02 20:00] VITALS: BP 145/63; RESP 18
[2017-06-02] MEDS: ATORVASTATIN 10 MG TAB PO SCH (20:15)
[2017-06-02] MEDS: APIXABAN 5 MG TABLET PO SCH (20:15)
[2017-06-03 02:00] VITALS: BP 119/56; RESP 19
[2017-06-03 05:40] LABS: WHITE BLOOD COUNT 6.1 10^3/ul (4.8-10.8)
[2017-06-03 05:41] LABS: BASOPHILS % 0.5 % (0.0-2.0); EOSINOPHILS # 0.2 10^3/ul (0.0-0.5); EOSINOPHILS % 3.1 % (0.0-7.0); HEMATOCRIT 36.7 % (37.0-47.0); HEMOGLOBIN 11.4 g/dl (12.0-16.0); LYMPHOCYTES % 32.9 % (15.0-51.0); MEAN CORPUSCULAR HEMOGLOBIN 28.9 pg (29.0-33.0); MEAN CORPUSCULAR HGB CONC 31.1 g/dl (32.0-37.0); MEAN CORPUSCULAR VOLUME 93.1 fl (82.0-101.0); MEAN PLATELET VOLUME 9.1 fl (7.4-10.4); MONOCYTE # 0.4 10^3/ul (0.3-0.9); MONOCYTES % 5.8 % (0.0-11.0); NEUTROPHIL # 3.5 10^3/ul (1.6-7.5); NEUTROPHILS % 57.4 % (39.0-77.0); PLATELET COUNT 224 10^3/UL (140-415); RED BLOOD COUNT 3.94 10^6/ul (4.20-5.40); RED CELL DISTRIBUTION WIDTH 12.6 % (11.5-14.5)
[2017-06-03 06:18] LABS: CALCIUM 9.3 mg/dl (8.4-10.2); CREATININE 0.77 mg/dl (0.44-1.00); POTASSIUM 4.8 mmol/L (3.5-5.1)
[2017-06-03 08:55] VITALS: BP 123/58; RESP 16
[2017-06-03] MEDS: BACLOFEN 10 MG TAB PO SCH (09:20)
[2017-06-03] MEDS: FAMOTIDINE 20 MG TAB PO SCH (09:20)
[2017-06-03] MEDS: APIXABAN 5 MG TABLET PO SCH (09:20)
--- NOTE | 2017-06-03 10:32 | CONS ---
Date/Time of Note Date/Time of Note DATE: 06/03/17 TIME: 10:31 Assessment/Plan Assessment/Plan Additional Assessment/Plan Assessment and recommendations; 1. Patient admitted with shortness of breath due to right upper lobe pulmonary embolism, currently on full dose Lovenox. 2. Left diaphragmatic hernia. Patient quite asymptomatic from that. Continue current treatment. Consider discharge. Patient could potentially benefit from long-term apixaban administration. Consultation Date/Type/Reason Admit Date/Time May 28, 2017 at 03:38 Initial Consult Date 05/29/17 Type of Consultation: Pulmonary 24 HR Interval Summary Free Text/Dictation Patient condition is stable. Denies any shortness of breath, chest pain, wheezing, cough or sputum production. Denies any hemoptysis. General exam; elderly woman, awake currently no distress. Exam/Review of Systems Vital Signs Vitals Vital Signs Date Time Temp Pulse Resp B/P Pulse Ox O2 Delivery O2 Flow Rate FiO2 06/03/17 08:55 98.2 93 16 123/58 93 06/01/17 08:00 Nasal Cannula 2.0 Intake and Output 06/02/17 06/02/17 06/03/17 15:00 23:00 07:00 Intake Total 960 ml 480 ml Balance 960 ml 480 ml Exam HEENT exam; supple neck, no JVD. No lymphadenopathy. Midline trachea. No thyromegaly. Chest exam; decreased breath sounds left lung base, rest of the lung crowe are clear. S1-S2 audible, no murmurs. Regular rhythm. Abdomen exam; soft, no organomegaly. Bowel sounds audible. Extremity exam; no peripheral edema. No clubbing. [employer] exam; no focal deficit. Results Result Diagram: 06/03/17 0423 06/03/17 0423 Results 24 hrs Laboratory Tests Test 06/03/17 04:23 White Blood Count 6.1 Red Blood Count 3.94 L Hemoglobin 11.4 L Hematocrit 36.7 L Mean Corpuscular Volume 93.1 Mean Corpuscular Hemoglobin 28.9 L Mean Corpuscular Hemoglobin Concent 31.1 L Red Cell Distribution Width 12.6 Platelet Count 224 Mean Platelet Volume 9.1 Neutrophils % 57.4 Lymphocytes % 32.9 Monocytes % 5.8 Eosinophils % 3.1 Basophils % 0.5 Nucleated Red Blood Cells % 0.0 Neutrophils # 3.5 Lymphocytes # 2.0 Monocytes # 0.4 Eosinophils # 0.2 Basophils # 0.0 Nucleated Red Blood Cells # 0.0 Sodium Level 143 Potassium Level 4.8 Chloride Level 96 L Carbon Dioxide Level 36 H Anion Gap 16 Blood Urea Nitrogen 20 Creatinine 0.77 Glucose Level 85 Calcium Level 9.3 Medications Medications Current Medications Atorvastatin Calcium (Lipitor) 10 mg QHS PO Last administered on 06/02/17 20: 15; Admin Dose 10 MG; Start 05/28/17 at 21:00 Baclofen (Lioresal) 10 mg DAILY PO Last administered on 06/03/17 09:20; Admin Dose 10 MG; Start 05/28/17 at 09:00 Famotidine (Pepcid) 20 mg DAILY PO Last administered on 06/03/17 09:20; Admin Dose 20 MG; Start 05/28/17 at 09:00 Acetaminophen (Tylenol Tab) 650 mg Q4H PRN PO PAIN AND OR ELEVATED TEMP Last administered on 06/02/17 20:15; Admin Dose 650 MG; Start 05/28/17 at 08:30 Acetaminophen/ Hydrocodone Bitart ([place] (5/325)) 1 tab Q6H PRN PO PAIN LEVEL 6 -10; Start 05/28/17 at 08:30 Apixaban (Eliquis) 10 mg BID PO Last administered on 06/03/17 09:20; Admin Dose 10 MG; Start 06/02/17 at 21:00 JOHN BRINK Jun 03, 2017 10:32
[2017-06-03 15:15] VITALS: BP 127/59; RESP 18
[2017-06-03] MEDS ORDERED: APIX5TAB PO (15:48)
[2017-06-03] MEDS ORDERED: APIX2.5T PO (15:48)
--- NOTE | 2017-06-03 16:49 | DS ---
Date/Time of Note Date/Time of Note DATE: 06/03/17 TIME: 16:49 Discharge Summary Admission/Discharge Info Admit Date/Time May 28, 2017 at 03:38 Discharge Date/Time Patient Condition: Good Hx of Present Illness This 81-year-old female, a former cigarette smoker is admitted with complaints of dry and nonproductive cough 1 week and shortness of breath from last 5 days. Patient has complains of dyspnea on exertion. She saw her for his primary care physician who ordered a CAT scan of her chest for shortness of breath. CAT scan that was done on Thursday showed possible right upper and lower lobe pulmonary embolisms with very elevated left hemidiaphragm causing some right mediastinal shift. Patient says she is not having any shortness of breath at rest but any exertion causes some shortness of breath. No orthopnea. Does not have any substernal chest pain or palpitations. During physical exam patient is resting in bed seems comfortable no sinus symptoms or shortness of breath noted. Patient is able to talk in full sentences. Denies any chest pain dizziness palpitations headache focal weakness or numbness, abdominal pain , nausea vomiting. Discussed with the staff.-Patient's O2 sat dropped to 85 on 2 L initially when she is walking, proximal [place] 6 steps per staff. ROS All systems reviewed and are negative except as per history of present illness. Allergies No Known Allergy (Unverified , 05/27/17) Hospital Course -Right upper lobe PE, start Eliquis. Dr. Rodriguez is following in pulmonology consultation. Patient discharged with prescription for Eliquis, instructed to follow-up with primary care physician in 2 weeks. -Hyperlipidemia, continue statin. -Hyperkalemia, resolved. Home Meds Active Scripts Apixaban* (Eliquis*) 2.5 Mg Tablet, 5 MG PO BID for 30 Days, TAB Prov:DORENE AGUIRRE 06/03/17 Apixaban* (Eliquis*) 5 Mg Tablet, 10 MG PO BID for 6 Days, TAB Prov:DORENE AGUIRRE 06/03/17 Reported Medications Atorvastatin Calcium (Atorvastatin Calcium) 10 Mg Tablet, 10 MG PO QHS, #30 TAB 05/27/17 Albuterol Sulfate* (Ventolin HFA*) 18 Gm Hfa.aer.ad, 2 PUFF INHALATION Q4H, #1 INHALER 05/27/17 Naproxen* (Naproxen*) 500 Mg Tablet, 500 MG PO BID Y for PAIN, TAB 05/27/17 Baclofen* (Baclofen*) 10 Mg Tablet, 10 MG PO DAILY, TAB 05/27/17 Famotidine* (Pepcid*) 20 Mg Tablet, 20 MG PO DAILY, TAB 11/16/14 Discontinued Reported Medications Docusate Sodium* (Colace*) 100 Mg Capsule, 100 MG PO QHS, CAP 11/16/14 Discontinued Scripts Methylprednisolone* (Medrol* DOSE PACK) 4 Mg/Dose-Pack Tab.ds.pk, 4 MG PO . DIRECTED, #1 PACKET Prov:JUAN APBLO AGUIRREA 01/13/17 Levofloxacin* (Levaquin*) 500 Mg Tablet, 500 MG PO DAILY@06 for 5 Days, TAB Prov:SUDARSHAN AGUIRRELANA 01/13/17 Metoprolol Tartrate* (Lopressor*) 25 Mg Tab, 25 MG PO BID for 30 Days, TAB Prov:JUAN PABLO AGUIRREA 01/13/17 Apixaban* (Eliquis*) 5 Mg Tablet, 2.5 MG PO BID for 30 Days, TAB Prov:RADNACHO MAGALLONETLANA 01/13/17 Hydrocodone/Acetaminophen ([place] 5-325 Tablet) 1 Each Tablet, 1 TAB PO Q6H Y for PAIN, #7 TAB Prov:ISAURA ALCANTAR NP 12/14/16 Gabapentin* (Gabapentin*) 300 Mg Capsule, 300 MG PO QAM, #30 CAP Take one tab on day 1, take BID on day 2, then TID thereafter Prov:JENS TERRAZAS MD 12/10/16 Follow-up Plan Follow-up with PMD in 2 weeks Primary Care Provider Care Physician No Primary Time spent on discharge: > 30 minutes Pending Labs Laboratory Tests Test 06/03/17 04:23 White Blood Count 6.110^3/ul (4.8-10.8) Red Blood Count 3.9410^6/ul (4.20-5.40) Hemoglobin 11.4g/dl (12.0-16.0) Hematocrit 36.7% (37.0-47.0) Mean Corpuscular Volume 93.1fl (82.0-101.0) Mean Corpuscular Hemoglobin 28.9pg (29.0-33.0) Mean Corpuscular Hemoglobin Concent 31.1g/dl (32.0-37.0) Red Cell Distribution Width 12.6% (11.5-14.5) Platelet Count 14201^3/UL (140-415) Mean Platelet Volume 9.1fl (7.4-10.4) Neutrophils % 57.4% (39.0-77.0) Lymphocytes % 32.9% (15.0-51.0) Monocytes % 5.8% (0.0-11.0) Eosinophils % 3.1% (0.0-7.0) Basophils % 0.5% (0.0-2.0) Nucleated Red Blood Cells % 0.0/100WBC (0.0-0.0) Neutrophils # 3.510^3/ul (1.6-7.5) Lymphocytes # 2.010^3/ul (0.8-2.9) Monocytes # 0.410^3/ul (0.3-0.9) Eosinophils # 0.210^3/ul (0.0-0.5) Basophils # 0.010^3/ul (0.0-0.1) Nucleated Red Blood Cells # 0.010^3/ul (0.0-0.0) Sodium Level 143mmol/L (135-144) Potassium Level 4.8mmol/L (3.5-5.1) Chloride Level 96mmol/L (97-110) Carbon Dioxide Level 36mmol/L (21-31) Anion Gap 16 (8-16) Blood Urea Nitrogen 20mg/dl (7-20) Creatinine 0.77mg/dl (0.44-1.00) Glucose Level 85mg/dl (70-220) Calcium Level 9.3mg/dl (8.4-10.2) DORENE AGUIRRE Jun 03, 2017 16:49
== END 2017-06-03 18:54 | disposition home or self-care (01) | DRG 176 ==
LOC: E/R 20:49 → MS4 05-28 03:38 → PP2 05-30 21:20
PROVIDERS: ADMIT Internal Medicine; ATTEND Internal Medicine
DX: I26.99 Other pulmonary embolism without acute cor pulmonale (principal); E87.5 Hyperkalemia; E78.5 Hyperlipidemia, unspecified; K44.9 Diaphragmatic hernia without obstruction or gangrene; Z87.891 Personal history of nicotine dependence
CPT/HCPCS: 36415; 71010; 71275; 80048; 80053; 80061; 83880; 84484; 85025; 85378; 85610; 85730; 93005; 96372; Q9967

== ENCOUNTER 2017-06-13 09:45 | Emergency (ER) | payer MEDICARE, OTHER ==
[~2017-06-13] VITALS: Wt 70.0 kg
[~2017-06-13 09:45] MED LIST changes: +ALBU18HF INHALATION; +APIX2.5T PO; +ATOR10TA65 PO; +BACL10TA PO; -DOCU-144 PO; -GABA300C16 PO; -HYDR-906 PO; -LEVO500T72 PO; -MED4DP PO; -METO-448 PO; +NAPR-688 PO
--- NOTE | 2017-06-13 10:37 | ERD ---
ER Documentation Chief Complaint Date/Time DATE: 06/13/17 TIME: 10:33 Chief Complaint R ARM BRUISING AND SWELLING FOR 1 WK. NO TRAUMA OR DEFORMITY, ON ELIQUIST HPI This is an 81-year-old female presenting to the emergency department for right arm bruising and swelling 1 week. Patient denies fall or trauma to area. No obvious deformity. Patient has history of pulmonary embolism 1 week ago and was started on Eliquis. Patient denies shortness of breath at rest however has dyspnea on exertion. Patient had recent CTA done on 05/27/2017 that showed pulmonary emboli. 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 Patient was admitted to the hospital for management for about 1 week. No cough or difficulty breathing. Denies chest pain or chest pressure. ROS All systems reviewed and are negative except as per history of present illness. Medications Home Meds Active Scripts Apixaban* (Eliquis*) 2.5 Mg Tablet, 5 MG PO BID for 30 Days, TAB Prov:DORENE AGUIRRE 06/03/17 Apixaban* (Eliquis*) 5 Mg Tablet, 10 MG PO BID for 6 Days, TAB Prov:DORENE AGUIRRE 06/03/17 Reported Medications Atorvastatin Calcium (Atorvastatin Calcium) 10 Mg Tablet, 10 MG PO QHS, #30 TAB 05/27/17 Albuterol Sulfate* (Ventolin HFA*) 18 Gm Hfa.aer.ad, 2 PUFF INHALATION Q4H, #1 INHALER 05/27/17 Naproxen* (Naproxen*) 500 Mg Tablet, 500 MG PO BID Y for PAIN, TAB 05/27/17 Baclofen* (Baclofen*) 10 Mg Tablet, 10 MG PO DAILY, TAB 05/27/17 Famotidine* (Pepcid*) 20 Mg Tablet, 20 MG PO DAILY, TAB 11/16/14 Allergies Allergies: Coded Allergies: No Known Allergy (Unverified , 05/27/17) PMhx/Soc History of Surgery: Yes (tubal ligation) Anesthesia Reaction: No Hx Neurological Disorder: No Hx Respiratory Disorders: Yes (Pulmonary embolism) Hx Cardiac Disorders: No Hx Psychiatric Problems: No Hx Miscellaneous Medical Probl: No Hx Alcohol Use: No Hx Substance Use: No Hx Tobacco Use: No Smoking Status: Never smoker Physical Exam Vitals Vital Signs Date Time Temp Pulse Resp B/P Pulse Ox O2 Delivery O2 Flow Rate FiO2 06/13/17 09:49 98.1 80 20 142/68 94 Physical Exam Const: Alert, [id number] Head: Atraumatic Eyes: Normal Conjunctiva ENT: Normal External Ears, Nose and Mouth. Neck: Full range of motion..~ No meningismus. Resp: Clear to auscultation bilaterally. No wheezes rhonchi or crackles. No stridor or labored breathing. Cardio: Regular rate and rhythm, no murmurs Abd: Soft, non tender, non distended. Normal bowel sounds Skin: No petechiae or rashes Back: No midline or flank tenderness Ext: Excessive bruising to medial aspect of right upper extremity. No obvious deformity. Neur: Awake and alert Psych: Normal Mood and Affect Procedures/MDM MDM: This is an 81-year-old female presenting to emergency department with excessive bruising to right upper extremity after hospitalization. Patient was recently hospitalized on 05/27/2017-06/03/2017 for pulmonary embolism. Patient was recently started on Eliquis. Vital signs upon arrival to ED show oxygen saturation 94% on room air and 20 respirations per minute. No fevers or chills. Patient states no new shortness of breath or dyspnea on exertion. Patient states she has had these symptoms for a "long time." Vital signs are stable. No signs or symptoms of respiratory distress. Patient is talking in complete sentences. Consulted Dr. Kolb regarding this patient and he also examined patient at bedside. We agree that patient is appropriate for outpatient management. Diagnosis is ecchymosis of right upper extremity secondary to recent start of Eliquis. Patient is appropriate for outpatient management and instructed to follow-up with primary care provider in the next week for reassessment. Return to ED for any high fever, chest pain, difficulty breathing, shortness breath, wheezing, vomiting, diarrhea, abdominal pain or any new or worsening symptoms. Patient verbalizes understanding. All questions answered at discharge. Faroese translation use during this encounter. Departure Diagnosis: Primary Impression: Superficial bruising of arm Encounter type: initial encounter Laterality: right Qualified Code: S40.021A - Superficial bruising of arm, right, initial encounter Condition: Stable ISAURA ALCANTAR NP Jun 13, 2017 10:37
[2017-06-13 11:12] VITALS: BP 149/61; PULSE 83; RESP 16; TEMP 98.2
--- NOTE | 2017-06-13 11:17 | RADRPT ---
PROCEDURE: XR Chest. CLINICAL INDICATION: Shortness of breath TECHNIQUE: Single frontal chest x-ray. COMPARISON: 01/08/2017, 09/11/2014 FINDINGS: There is marked elevation of the left hemidiaphragm with left basilar atelectasis unchanged since 14.. Associated right-sided position of the heart is noted. There are no new alveolar infiltrates or effusions. Cardiomegaly is stable... Calcific atherosclerosis of the aorta is present.. The oss eous structures are intact. IMPRESSION: Chronic elevation of the left diaphragm. Cardiomegaly with calcified aorta. Left basilar atelectasis. RPTAT: QQ .Romero Acosta MD, MD Date Time Electronically viewed and signed by .Romero Acosta MD, on 06/13/2017 11:16 .L/
== END 2017-06-13 11:14 | disposition home or self-care (01) ==
LOC: FTE 09:45
DX: S40.021A Contusion of right upper arm, initial encounter (principal); R06.02 Shortness of breath; X58.XXXA Exposure to other specified factors, initial encounter; Y92.9 Unspecified place or not applicable
CPT/HCPCS: 71010; 93005

== ENCOUNTER → 2017-08-07 | Outpatient (CLI) | payer MEDICARE, OTHER ==
[2017-08-07 14:07] LABS: AADO2 Arterial 24.2 mmHg (7.0-24.0); Allen Test ACCEPTAB; Arterial Base Excess 4.1 mmol/L (-3.0-3); Arterial COHb 0.2 % (0.0-3.0); Arterial Fraction of Oxyhgb 92.7 % (93.0-99.0); Arterial HCO3 30.3 mmol/L (22.0-26.0); Arterial MetHb 0.2 % (0.0-1.5); Arterial Total Hemglobin 13.5 g/dl (12.0-18.0); MODE ROOM AIR
== END | disposition home or self-care (01) ==
LOC: PUL 13:32
PROVIDERS: ATTEND Internal Medicine Pulmonary Disease
DX: R06.02 Shortness of breath (principal)
CPT/HCPCS: 36600; 82803

== ENCOUNTER → 2017-09-01 | Outpatient (CLI) | payer MEDICARE, OTHER ==
--- NOTE | 2017-09-01 16:14 | RADRPT ---
PROCEDURE: US bilateral lower extremity veins. CLINICAL INDICATION: Pulmonary embolism. TECHNIQUE: Multiple longitudinal and transverse images of the bilateral lower extremity veins were obtained with acuna scale and color Doppler imaging. The common femoral vein, femoral vein, and popl iteal vein were evaluated. 2D grayscale measurements with compression sonography, color Doppler, and pulsed Doppler with augmentation. COMPARISON: CT pulmonary angiogram dated 05/28/2017 which demonstrated pulmonary emboli. FINDINGS: The bilateral common femoral, femoral and popliteal veins are normally compressible throughout. Col or flow demonstrates normal filling of the vessels. Normal waveforms are visualized and there is no rmal response to augmentation. IMPRESSION: 1. No evidence of deep vein thrombosis involving either lower extremity. RPTAT: QQ .Rich Aguirre MD, MD Date Time Electronically viewed and signed by .Rich Aguirer MD, on 09/01/2017 16:14 .R/
== END | disposition home or self-care (01) ==
LOC: VAS 15:22
PROVIDERS: ATTEND Internal Medicine Pulmonary Disease
DX: I26.99 Other pulmonary embolism without acute cor pulmonale (principal)
CPT/HCPCS: 93970

== ENCOUNTER 2017-12-23 02:17 | Observation (INO) | END 2017-12-27 11:45 | disposition home or self-care (01) ==

== ENCOUNTER → 2018-02-15 | Outpatient (CLI) | END | disposition home or self-care (01) ==

== ENCOUNTER 2018-05-16 08:51 | Emergency (ER) | END 2018-05-16 13:42 | disposition home or self-care (01) ==

== ENCOUNTER 2018-08-21 09:00 | Emergency (ER) | END 2018-08-21 11:56 | disposition home or self-care (01) ==

== ENCOUNTER 2019-01-11 08:27 | Inpatient (IN) | payer MEDICARE, OTHER ==
[~2019-01-11] VITALS: Ht 157.5 cm; Wt 69.4 kg
[~2019-01-11 08:27] MED LIST changes: -ALBU18HF INHALATION; -APIX2.5T PO; -ATOR10TA65 PO; -BACL10TA PO; +DOXY100T20 PO; -FAMO-96 PO; -NAPR-688 PO
[2019-01-11 08:28] VITALS: Ht 157.5 cm; Wt 69.4 kg
[2019-01-11] MEDS ORDERED: AZITHROMYCIN 500MG/NS (PMX) 250 ML IV STA (08:38)
[2019-01-11] MEDS ORDERED: CEFTRIAXONE 1 GM/50 ML (PMX) 50 ML IVPB STA (08:38)
[2019-01-11] MEDS ORDERED: ONDANSETRON 4 MG INJ IV PRN ×2 (10:00→14:30)
[2019-01-11] MEDS ORDERED: ACETAMINOPHEN 325 MG TAB PO PRN (10:00)
--- NOTE | 2019-01-11 10:07 | ERD ---
ER Documentation Chief Complaint Chief Complaint FEVER , COUGH , BODY ACHE X 1 WEEK HPI Patient is an 83-year-old female who is on home oxygen who presents with cough. She has had productive cough over the past 2 weeks. She had a low oxygen saturation and did not sleep well last night. She has a sore throat which she describes as itchy. She has fevers and body aches as well. Her symptoms started 2 weeks ago. She tried a cough medicine. Her primary doctor is Dr. Abarca. ROS All systems reviewed and are negative except as per history of present illness. Medications Home Meds Active Scripts Doxycycline Hyclate* (Doxycycline Hyclate*) 100 Mg Tablet., 100 MG PO BID for 10 Days, TAB Prov:RAVINDRA FERRER MD 08/21/18 Reported Medications Apixaban* (Eliquis*) 5 Mg Tablet, 5 MG PO BID, TAB 08/21/18 Allergies Allergies: Coded Allergies: No Known Allergy (Unverified , 08/21/18) PMhx/Soc History of Surgery: Yes (tubal ligation) Anesthesia Reaction: No Hx Neurological Disorder: No Hx Respiratory Disorders: Yes (Pulmonary embolism) Hx Cardiac Disorders: No Hx Psychiatric Problems: No Hx Miscellaneous Medical Probl: Yes (HTN, A-FIB , S/P RIGTH UPPER LOBE PE) Hx Alcohol Use: No Hx Substance Use: No Hx Tobacco Use: Yes Smoking Status: Never smoker FmHx Family History: diabetes Physical Exam Vitals Vital Signs Date Temp Pulse Resp B/P (MAP) Pulse Ox O2 O2 Flow FiO2 Time Delivery Rate 01/11/19 Nasal 2 08:54 Cannula 01/11/19 98.7 85 18 120/65 90 08:28 (83) Physical Exam Const: No acute distress Head: Atraumatic Eyes: Normal Conjunctiva ENT: Normal External Ears, Nose and Mouth. Neck: Full range of motion. No meningismus. Resp: Decreased breath sounds bilaterally Cardio: Regular rate and rhythm, no murmurs Abd: Soft, non tender, non distended. Normal bowel sounds Skin: No petechiae or rashes Back: No midline or flank tenderness Ext: No cyanosis, or edema Neur: Awake and alert Psych: Normal Mood and Affect Result Diagram: 01/11/19 0854 01/11/19 0854 Results 24 hrs Laboratory Tests Test 01/11/19 08:50 01/11/19 08:54 01/11/19 09:30 POC Venous Lactate 1.4 mmol/L White Blood Count 6.2 10^3/ul Red Blood Count 4.36 10^6/ul Hemoglobin 12.4 g/dl Hematocrit 41.4 % Mean Corpuscular Volume 95.0 fl Mean Corpuscular Hemoglobin 28.4 pg Mean Corpuscular 30.0 g/dl Hemoglobin Concent Red Cell Distribution Width 12.9 % Platelet Count 230 10^3/UL Mean Platelet Volume 8.6 fl Immature Granulocytes % 0.300 % Neutrophils % 64.0 % Lymphocytes % 25.4 % Monocytes % 6.1 % Eosinophils % 3.7 % Basophils % 0.5 % Nucleated Red Blood Cells % 0.0 /100WBC Immature Granulocytes # 0.020 10^3/ul Neutrophils # 4.0 10^3/ul Lymphocytes # 1.6 10^3/ul Monocytes # 0.4 10^3/ul Eosinophils # 0.2 10^3/ul Basophils # 0.0 10^3/ul Nucleated Red Blood Cells # 0.0 10^3/ul Prothrombin Time 12.1 Sec Prothrombin Time Ratio 0.9 INR International 0.89 Normalized Ratio Activated Partial Thromboplast 25.4 Sec Time Sodium Level 138 mmol/L Potassium Level 4.6 mmol/L Chloride Level 97 mmol/L Carbon Dioxide Level 34 mmol/L Anion Gap 7 Blood Urea Nitrogen 17 mg/dl Creatinine 0.77 mg/dl Est Glomerular Filtrat mL/min Rate mL/min Glucose Level 99 mg/dl Calcium Level 8.9 mg/dl Total Bilirubin 0.2 mg/dl Direct Bilirubin 0.00 mg/dl Indirect Bilirubin 0.2 mg/dl Aspartate Amino Transf (AST/SGOT) 21 IU/L Alanine 14 IU/L Aminotransferase (ALT/SGPT) Alkaline Phosphatase 76 IU/L Troponin I < 0.012 ng/ml Total Protein 7.1 g/dl Albumin 3.9 g/dl Globulin 3.20 g/dl Albumin/Globulin Ratio 1.21 Urine Color YELLOW Urine Clarity CLEAR Urine pH 6.0 Urine Specific [place] 1.011 Urine Ketones NEGATIVE mg/dL Urine Nitrite NEGATIVE mg/dL Urine Bilirubin NEGATIVE mg/dL Urine Urobilinogen NEGATIVE mg/dL Urine Leukocyte Esterase TRACE Aida/ul Urine Microscopic RBC 1 /HPF Urine Microscopic WBC 4 /HPF Urine Squamous Epithelial Cells FEW /HPF Urine Bacteria FEW /HPF Urine Mucus FEW /HPF Urine Hemoglobin 1+ mg/dL Urine Glucose NEGATIVE mg/dL Urine Total Protein NEGATIVE mg/dl Current Medications Medications Dose Sig/Jennifer Start Time Status Last (Trade) Ordered Route PRN Stop Time Admin Dose Reason Admin Ceftriaxone 50 ml @ ONCE STAT 01/11/19 DC 01/11/19 Sodium 100 mls/hr IVPB 08:38 01/11/19 08:59 09:07 Azithromycin 250 ml @ ONCE STAT 01/11/19 DC 01/11/19 250 mls/hr IV 08:38 01/11/19 09:18 09:37 Ondansetron 4 mg BRIDGE ORDER 01/11/19 HCl (Zofran PRN IV 10:00 01/12/19 Inj) NAUSEA/VOMITI 09:59 NG 650 mg ER BRIDGE 01/11/19 Acetaminophen PRN PO 10:00 01/12/19 (Tylenol .MILD PAIN 09:59 Tab) 1-3 OR TEMP Procedures/MDM Chest x-ray read by radiology. EKG read by me: Rate/Rhythm: Regular rate and rhythm at a normal rate Intervals: Normal Impression: No evidence of ischemia or arrhythmia Patient is a 83-year-old female who presents with cough and hypoxia. The won ent has no obvious pneumonia on x-ray but I am concerned for an acute bronchitis. I doubt sepsis. I doubt pneumothorax or pulmonary embolism. The patient will need admission to the hospital and I spoke with Dr. Abarca for admission to a medical surgical bed. The patient was given ceftriaxone and Zithromax empirically. Departure Diagnosis: Primary Impression: Hypoxia Additional Impressions: Upper respiratory infection URI type: unspecified URI Qualified Codes: J06.9 - Acute upper respiratory infection, unspecified SOB (shortness of breath) Bronchitis Condition: AURE King MD Jan 11, 2019 10:07
[2019-01-11 11:00] VITALS: BP 117/58; PULSE 80; RESP 18
[2019-01-11 14:00] VITALS: BP 105/55; PULSE 76; RESP 20
--- NOTE | 2019-01-11 14:08 | HP ---
Date/Time of Note Date/Time of Note DATE: 01/11/19 TIME: 13:57 Assessment/Plan VTE Prophylaxis SCD applied (from Nsg): Yes Pharmacological prophylaxis: LMWH Lines/Catheters IV Catheter Type (from Nrsg): Peripheral IV Assessment/Plan Assessment/Plan -Acute hypoxemic respiratory insufficiency, continue oxygen supplementation. Patient had a history of PE more than a year ago and was on anticoagulation for 6 months also history of atrial fibrillation patient is currently in sinus rhythm, will obtain CT angiogram to rule out PE. -Upper respiratory infection, continue antibiotics. -Bronchitis -Hypertension -Hyperlipidemia -Left diaphragmatic hernia Patient's condition and plan of care discussed with patient and patient's daug hter at the bedside. Further recommendations based on clinical course. Plan of care discussed with Dr. Abarca. Result Diagram: 01/11/19 0854 01/11/19 0854 Results 24hrs Laboratory Tests Test 01/11/19 08:50 01/11/19 08:54 01/11/19 09:30 01/11/19 12:52 POC Venous Lactate 1.4 White Blood Count 6.2 Red Blood Count 4.36 Hemoglobin 12.4 Hematocrit 41.4 Mean Corpuscular Volume 95.0 Mean Corpuscular 28.4 L Hemoglobin Mean Corpuscular 30.0 L Hemoglobin Concent Red Cell Distribution 12.9 Width Platelet Count 230 # Mean Platelet Volume 8.6 Immature Granulocytes % 0.300 Neutrophils % 64.0 Lymphocytes % 25.4 Monocytes % 6.1 Eosinophils % 3.7 Basophils % 0.5 Nucleated Red Blood 0.0 Cells % Immature Granulocytes # 0.020 Neutrophils # 4.0 Lymphocytes # 1.6 Monocytes # 0.4 Eosinophils # 0.2 Basophils # 0.0 Nucleated Red Blood 0.0 Cells # Prothrombin Time 12.1 Prothrombin Time Ratio 0.9 INR International 0.89 Normalized Ratio Activated 25.4 Partial Thromboplast Time Sodium Level 138 Potassium Level 4.6 Chloride Level 97 Carbon Dioxide Level 34 H Anion Gap 7 Blood Urea Nitrogen 17 Creatinine 0.77 Est Glomerular Filtrat Rate mL/min Glucose Level 99 Calcium Level 8.9 Total Bilirubin 0.2 Direct Bilirubin 0.00 Indirect Bilirubin 0.2 Aspartate Amino 21 Transf (AST/SGOT) Alanine 14 Aminotransferase (ALT/SG PT) Alkaline Phosphatase 76 Troponin I < 0.012 Total Protein 7.1 Albumin 3.9 Globulin 3.20 Albumin/Globulin Ratio 1.21 Urine Color YELLOW Urine Clarity CLEAR Urine pH 6.0 Urine Specific [place] 1.011 Urine Ketones NEGATIVE Urine Nitrite NEGATIVE Urine Bilirubin NEGATIVE Urine Urobilinogen NEGATIVE Urine Leukocyte Esterase TRACE A Urine Microscopic RBC 1 Urine Microscopic WBC 4 Urine Squamous FEW Epithelial Cells Urine Bacteria FEW A Urine Mucus FEW A Urine Hemoglobin 1+ H Urine Glucose NEGATIVE Urine Total Protein NEGATIVE Lactic Acid Level 0.8 HPI/ROS Admit Date/Time Admit Date/Time Jan 11, 2019 at 09:38 Hx of Present Illness The patient is a 83-year-old female with history of hypertension, hyperlipidemia history of pulmonary emboli more than a year ago. Patient presented to emergency room with complaints of fever, productive cough, sore throat, and generalized body ache for last couple of weeks. Patient stated that she was taking some [id number] medicine which did not help. Patient denies any nausea vomiting diarrhea denies chest pain denies bilateral lower extremities edema. Patient noted to have below normal oxygen saturation on room air and was placed on oxygen via nasal cannula, chest x-ray did not reveal pneumonia. Patient was diagnosed with acute respiratory failure infection and bronchitis and admitted for further evaluation and management. ROS 12 point review of system is negative except for what mentioned in HPI PMH/Family/Social Past Medical History Medical History: high cholesterol, hypertension, other (History of PE and history of atrial fibrillation) Medications Current Medications Ondansetron HCl (Zofran Inj) 4 mg BRIDGE ORDER PRN IV NAUSEA/VOMITING; Start 01/11/19 at 10:00; Stop 01/12/19 at 09:59 Acetaminophen (Tylenol Tab) 650 mg ER BRIDGE PRN PO .MILD PAIN 1-3 OR TEMP; Start 01/11/19 at 10:00; Stop 01/12/19 at 09:59 Coded Allergies: No Known Allergy (Unverified , 08/21/18) Past Surgical History Past Surgical Hx: other (Tubal ligation many years ago) Family History Significant Family History: no pertinent family hx Social History Alcohol Use: none Smoking Status: Former smoker (Quit more than 10 years ago) Drug Use: none Exam/Review of Systems Vital Signs Vitals Vital Signs Date Temp Pulse Resp B/P (MAP) Pulse Ox O2 O2 Flow FiO2 Time Delivery Rate 01/11/19 98.0 80 18 117/58 96 Nasal 2.0 11:00 (77) Cannula Exam Constitutional: alert, oriented Head: normocephalic Respiratory: clear to auscultation Cardiovascular: nl pulses Gastrointestinal: soft, non-tender Musculoskeletal: nl extremities to inspection Extremities: normal pulses Neurological: nl mental status Skin: nl DORENE Bocanegra Jan 11, 2019 14:07
[2019-01-11] MEDS ORDERED: DOCUSATE SODIUM 100 MG CAP PO PRN (14:30)
[2019-01-11] MEDS ORDERED: ZOLPIDEM 5 MG TAB PO PRN (14:30)
[2019-01-11] MEDS ORDERED: MAGNESIUM HYDROXIDE 30ML CUP PO PRN (14:30)
[2019-01-11] MEDS: FAMOTIDINE 20 MG TAB PO SCH (15:24)
[2019-01-11] MEDS ORDERED: IOHEXOL 100 ML ONE (16:13)
[2019-01-11] MEDS ORDERED: SOD CHLORIDE 0.9% 100 ML ONE (16:13)
[2019-01-11 20:22] VITALS: BP 127/59; PULSE 84; RESP 16
[2019-01-12 03:00] VITALS: BP 114/56; PULSE 81; RESP 16
[2019-01-12 08:00] VITALS: BP 134/62; PULSE 86; RESP 18
[2019-01-12] MEDS ORDERED: INFLUENZA VIRUS VACCINE 0.5 ML (DISPENSING) IM* ONE (09:00)
[2019-01-12] MEDS: CEFTRIAXONE 1 GM/50 ML (PMX) 50 ML IVPB SCH (09:02)
[2019-01-12] MEDS: ENOXAPARIN 30 MG/0.3 ML SYG SC SCH (09:02)
[2019-01-12] MEDS: FAMOTIDINE 20 MG TAB PO SCH (09:02)
[2019-01-12] MEDS: ACETAMINOPHEN 325 MG TAB PO PRN ×2 (09:02→22:21)
[2019-01-12] MEDS: AZITHROMYCIN 250 MG in SOD CHLORIDE 0.9% 250 ML IVPB SCH (10:02)
[2019-01-12 14:00] VITALS: BP 128/64; PULSE 76; RESP 20
--- NOTE | 2019-01-12 16:08 | PN ---
Date/Time of Note Date/Time of Note DATE: 01/12/19 TIME: 16:04 Assessment/Plan VTE Prophylaxis Risk score (from Ns)>0 risk: 4 SCD applied (from Ns): Yes Pharmacological prophylaxis: LMWH Lines/Catheters IV [facility] (from [facility] Saline Lock Assessment/Plan Hospital Course Assessment/Plan -Acute hypoxemic respiratory insufficiency, continue oxygen supplementation. CTA is negative for PE. -Upper respiratory infection, continue antibiotics. -Bronchitis -Pulmonary fibrosis -Hypertension -Hyperlipidemia -Left diaphragmatic hernia Further recommendations based on clinical course. Plan of care discussed with Dr. Abarca. Result Diagram: 01/12/19 0505 01/12/19 0505 Results 24hrs Laboratory Tests Test 01/12/19 05:05 White Blood Count 6.6 Red Blood Count 4.33 Hemoglobin 12.1 Hematocrit 41.2 Mean Corpuscular Volume 95.2 Mean Corpuscular Hemoglobin 27.9 L Mean Corpuscular Hemoglobin Concent 29.4 L Red Cell Distribution Width 13.1 Platelet Count 209 Mean Platelet Volume 8.7 Immature Granulocytes % 0.200 Neutrophils % 62.7 Lymphocytes % 24.7 Monocytes % 6.3 Eosinophils % 5.5 Basophils % 0.6 Nucleated Red Blood Cells % 0.0 Immature Granulocytes # 0.010 Neutrophils # 4.1 Lymphocytes # 1.6 Monocytes # 0.4 Eosinophils # 0.4 Basophils # 0.0 Nucleated Red Blood Cells # 0.0 Sodium Level 141 Potassium Level 4.8 Chloride Level 101 Carbon Dioxide Level 34 H Anion Gap 6 Blood Urea Nitrogen 14 Creatinine 0.73 Est Glomerular Filtrat Rate mL/min Glucose Level 110 Calcium Level 8.8 Magnesium Level 2.4 Total Bilirubin 0.1 L Direct Bilirubin 0.00 Indirect Bilirubin 0.1 Aspartate Amino Transf (AST/SGOT) 21 Alanine Aminotransferase (ALT/SGPT) 12 L Alkaline Phosphatase 80 Total Protein 6.7 Albumin 3.7 Globulin 3.00 Albumin/Globulin Ratio 1.23 Triglycerides Level 114 Cholesterol Level 220 H LDL Cholesterol, Calculated 127 HDL Cholesterol 70 Cholesterol/HDL Ratio 3.1 Exam/Review of Systems Exam Vitals Vital Signs Date Temp Pulse Resp B/P (MAP) Pulse Ox O2 O2 Flow FiO2 Time Delivery Rate 01/12/19 97.8 76 20 128/64 98 14:00 (85) 01/12/19 Nasal 2.0 10:00 Cannula Intake and Output 01/11/19 01/11/19 01/12/19 1515:00 23:00 07:00 IntakeIntake Total 450 ml BalanceBalance 450 ml Exam Constitutional: alert, oriented Respiratory: clear to auscultation Cardiovascular: nl pulses Gastrointestinal: soft, non-tender Musculoskeletal: nl extremities to inspection Extremities: normal pulses Neurological: nl mental status Skin: nl turgor Results Results 24hrs Laboratory Tests Test 01/12/19 05:05 White Blood Count 6.6 Red Blood Count 4.33 Hemoglobin 12.1 Hematocrit 41.2 Mean Corpuscular Volume 95.2 Mean Corpuscular Hemoglobin 27.9 L Mean Corpuscular Hemoglobin Concent 29.4 L Red Cell Distribution Width 13.1 Platelet Count 209 Mean Platelet Volume 8.7 Immature Granulocytes % 0.200 Neutrophils % 62.7 Lymphocytes % 24.7 Monocytes % 6.3 Eosinophils % 5.5 Basophils % 0.6 Nucleated Red Blood Cells % 0.0 Immature Granulocytes # 0.010 Neutrophils # 4.1 Lymphocytes # 1.6 Monocytes # 0.4 Eosinophils # 0.4 Basophils # 0.0 Nucleated Red Blood Cells # 0.0 Sodium Level 141 Potassium Level 4.8 Chloride Level 101 Carbon Dioxide Level 34 H Anion Gap 6 Blood Urea Nitrogen 14 Creatinine 0.73 Est Glomerular Filtrat Rate mL/min Glucose Level 110 Calcium Level 8.8 Magnesium Level 2.4 Total Bilirubin 0.1 L Direct Bilirubin 0.00 Indirect Bilirubin 0.1 Aspartate Amino Transf (AST/SGOT) 21 Alanine Aminotransferase (ALT/SGPT) 12 L Alkaline Phosphatase 80 Total Protein 6.7 Albumin 3.7 Globulin 3.00 Albumin/Globulin Ratio 1.23 Triglycerides Level 114 Cholesterol Level 220 H LDL Cholesterol, Calculated 127 HDL Cholesterol 70 Cholesterol/HDL Ratio 3.1 Medications Medication Current Medications Ceftriaxone Sodium 50 ml @ 100 mls/hr Q24H IVPB Last administered on 01/12/19at 09:02; Admin Dose 100 MLS/HR; Start 01/12/19 at 09:00 Azithromycin 250 mg/Sodium Chloride 250 ml @ 250 mls/hr Q24H IVPB Last administered on 01/12/19at 10:02; Admin Dose 250 MLS/HR; Start 01/12/19 at 10:00 Ondansetron HCl (Zofran Inj) 4 mg Q6H PRN IV NAUSEA/VOMITING; Start 01/11/19 at 14:30 Acetaminophen (Tylenol Tab) 650 mg Q6H PRN PO .PAIN 1-3 OR TEMP Last administered on 01/12/19at 09:02; Admin Dose 650 MG; Start 01/11/19 at 14:30 Docusate Sodium (Colace) 100 mg Q12H PRN PO .CONSTIPATION; Start 01/11/19 at 14:30 Magnesium Hydroxide (Milk Of Mag) 30 ml DAILY PRN PO .CONSTIPATION; Start 01/11/19 at 14:30 Zolpidem Tartrate (Ambien) 5 mg QHS PRN PO .INSOMNIA; Start 01/11/19 at 14:30 Famotidine (Pepcid) 20 mg DAILY PO Last administered on 01/12/19at 09:02; Admin Dose 20 MG; Start 01/11/19 at 14:30 Enoxaparin Sodium (Lovenox) 30 mg DAILY SC Last administered on 01/12/19at 09:02; Admin Dose 30 MG; Start 01/12/19 at 09:00 DORENE AGUIRRE Jan 12, 2019 16:07
[2019-01-12 20:57] VITALS: BP 133/60; PULSE 79; RESP 16
[2019-01-13 02:58] VITALS: BP 111/56; PULSE 75; RESP 16
[2019-01-13 08:00] VITALS: BP 114/77; PULSE 88; RESP 20
[2019-01-13] MEDS: CEFTRIAXONE 1 GM/50 ML (PMX) 50 ML IVPB SCH (08:39)
[2019-01-13] MEDS: FAMOTIDINE 20 MG TAB PO SCH (08:39)
[2019-01-13] MEDS: ENOXAPARIN 30 MG/0.3 ML SYG SC SCH (08:40)
[2019-01-13] MEDS: AZITHROMYCIN 250 MG in SOD CHLORIDE 0.9% 250 ML IVPB SCH (09:56)
[2019-01-13 14:00] VITALS: BP 128/62; PULSE 84; RESP 18
--- NOTE | 2019-01-13 15:32 | CONS ---
DATE OF ADMISSION: 01/11/2019 DATE OF CONSULTATION: 01/13/2019 TYPE OF CONSULTATION: Infectious disease. REQUESTING PHYSICIAN: Ayde Gale MD and Erinn Robb NP Thank you for this consultation. HISTORY OF PRESENT ILLNESS: This is a well-developed, obese, elderly woman with a history o f hypertension, hyperlipidemia and history of pulmonary emboli, who was admitted with fevers, product jose cough, sore throat and generalized body aches. The patient denies nausea, vomiting, diarrhea. VITAL SIGNS: Her temperature on admission was 98.7, pulse 85, respirations 18, blood pressure 120/65 , saturation 90% on 2 liters. LABORATORY DATA: WBC 6.2, H and H of 12.4 and 41.4, platelets 230, no shift, no bands. Normal elect rolytes. BUN 17, creatinine 0.7. Normal bilirubin and LFT. MICROBIOLOGY: Urinalysis revealed trace leukocyte esterase, few bacteria. DIAGNOSTIC DATA: CT of the chest revealed no pulmonary embolism, no aneurysm or dissection, mild ate lectasis/fibrosis in the lungs bilaterally, no consolidative pulmonary infiltrates. She also had a c hest x-ray that revealed marked elevation of left hemidiaphragm with mediastinal shift to the right, possible mild cardiomegaly without congestive heart or pneumonia. ALLERGIES: THE PATIENT IS NOT ALLERGIC TO ANY ANTIBIOTICS. MEDICATIONS: She was started on: 1. Zithromax. 2. Rocephin. SOCIAL HISTORY: The patient came from home. No smoking, alcohol or illicits. PHYSICAL EXAMINATION: GENERAL: This is a well-nourished, well-developed, very pleasant elderly woman who is alert , in no distress. HEENT: Head is atraumatic, normocephalic. Sclerae are anicteric. Buccal mucosa is dry. NECK: Supple. CHEST: Rise symmetrical. Breath sounds with scattered crackles to bases. The patient also has expi ratory wheezing. HEART: S1, S2. ABDOMEN: Soft. Bowel tones are present. EXTREMITIES: Without cyanosis. DIAGNOSTIC IMPRESSION: This is a well-developed, obese 83-year-old woman who was admitted w ith acute bronchitis and currently on appropriate antibiotics. She is clinically and hemodynamically stable. Cultures are pending. We will follow chest x-ray in a.m. I discussed with Dr. Ilir borjas. Dictated By: JEFFY SNELL BLOCK PAVER for ILIR MAXWELL MD NI/NTS Conf#: [id number] DID#: [id number] CC: AYDE GALE MD;*EndCC*
--- NOTE | 2019-01-13 16:11 | PN ---
Date/Time of Note Date/Time of Note DATE: 01/13/19 TIME: 16:10 Assessment/Plan VTE Prophylaxis Risk score (from Ns)>0 risk: 3 SCD applied (from Ns): Yes Pharmacological prophylaxis: LMWH Lines/Catheters IV Catheter Type (from [facility]): Saline Lock Assessment/Plan Hospital Course Patient is complaining of cough, denies any shortness of breath denies chest pain. Assessment/Plan -Acute hypoxemic respiratory insufficiency, continue oxygen supplementation. CTA is negative for PE. -Upper respiratory infection, continue antibiotics. -Bronchitis -Pulmonary fibrosis -Hypertension -Hyperlipidemia -Left diaphragmatic hernia Further recommendations based on clinical course. Plan of care discussed with Dr. Abarca. Result Diagram: 01/12/19 0505 01/12/19 0505 Exam/Review of Systems Exam Vitals Vital Signs Date Temp Pulse Resp B/P (MAP) Pulse Ox O2 O2 Flow FiO2 Time Delivery Rate 01/13/19 97.8 84 18 128/62 94 14:00 (84) 01/13/19 2.0 13:13 01/13/19 Nasal 08:10 Cannula Intake and Output 01/12/19 01/12/19 01/13/19 1515:00 23:00 07:00 IntakeIntake Total 900 ml 350 ml BalanceBalance 900 ml 350 ml Exam Constitutional: alert, oriented Respiratory: clear to auscultation Cardiovascular: nl pulses Gastrointestinal: soft, non-tender Musculoskeletal: nl extremities to inspection Extremities: normal pulses Neurological: nl mental status Medications Medication Current Medications Ceftriaxone Sodium 50 ml @ 100 mls/hr Q24H IVPB Last administered on 01/13/19at 08:39; Admin Dose 100 MLS/HR; Start 01/12/19 at 09:00 Azithromycin 250 mg/Sodium Chloride 250 ml @ 250 mls/hr Q24H IVPB Last administered on 01/13/19at 09:56; Admin Dose 250 MLS/HR; Start 01/12/19 at 10:00 Ondansetron HCl (Zofran Inj) 4 mg Q6H PRN IV NAUSEA/VOMITING; Start 01/11/19 at 14:30 Acetaminophen (Tylenol Tab) 650 mg Q6H PRN PO .PAIN 1-3 OR TEMP Last administered on 01/12/19at 22:21; Admin Dose 650 MG; Start 01/11/19 at 14:30 Docusate Sodium (Colace) 100 mg Q12H PRN PO .CONSTIPATION; Start 01/11/19 at 14:30 Magnesium Hydroxide (Milk Of Mag) 30 ml DAILY PRN PO .CONSTIPATION; Start 01/11/19 at 14:30 Zolpidem Tartrate (Ambien) 5 mg QHS PRN PO .INSOMNIA; Start 01/11/19 at 14:30 Famotidine (Pepcid) 20 mg DAILY PO Last administered on 01/13/19at 08:39; Admin Dose 20 MG; Start 01/11/19 at 14:30 Enoxaparin Sodium (Lovenox) 30 mg DAILY SC Last administered on 01/13/19at 08:40; Admin Dose 30 MG; Start 01/12/19 at 09:00 DORENE AGUIRRE Jan 13, 2019 16:11
[2019-01-13 20:03] VITALS: BP 121/69; PULSE 89; RESP 20
[2019-01-13] MEDS: GUAIFENESIN/DM 5ML CUP PO PRN (20:16)
[2019-01-13] MEDS: ACETAMINOPHEN 325 MG TAB PO PRN (20:18)
[2019-01-14 02:21] VITALS: BP 144/65; PULSE 83; RESP 20
[2019-01-14] MEDS: ACETAMINOPHEN 325 MG TAB PO PRN ×2 (07:48→18:01)
[2019-01-14 08:15] VITALS: BP 128/81; PULSE 75; RESP 19
[2019-01-14] MEDS: ENOXAPARIN 30 MG/0.3 ML SYG SC SCH (09:21)
[2019-01-14] MEDS: FAMOTIDINE 20 MG TAB PO SCH (09:21)
[2019-01-14] MEDS: CEFTRIAXONE 1 GM/50 ML (PMX) 50 ML IVPB SCH (09:21)
--- NOTE | 2019-01-14 10:32 | PN ---
Date/Time of Note Date/Time of Note DATE: 01/14/19 TIME: 10:32 Assessment/Plan VTE Prophylaxis Risk score (from Ns)>0 risk: 4 SCD applied (from [facility]): Yes SCD contraindicated: other Pharmacological prophylaxis: other Pharm contraindication: other Lines/Catheters IV [facility]atheter Type (from [facility]): Saline Lock Assessment/Plan Assessment/Plan -Acute hypoxemic respiratory insufficiency, continue oxygen supplementation. CTA is negative for PE. -Upper respiratory infection, continue antibiotics. -Bronchitis -Pulmonary fibrosis -Hypertension -Hyperlipidemia -Left diaphragmatic hernia Further recommendations based on clinical course. Plan of care discussed with Dr. Abarca. Result Diagram: 01/12/19 0505 01/14/19 0510 Results 24hrs Laboratory Tests Test 01/14/19 05:10 Sodium Level 139 Potassium Level 4.7 Chloride Level 97 Carbon Dioxide Level 36 H Anion Gap 6 Blood Urea Nitrogen 16 Creatinine 0.73 Est Glomerular Filtrat Rate mL/min Glucose Level 88 Calcium Level 8.6 Subjective 24 Hr Interval Summary Free Text/Dictation - nad - afebrile - resting in bed; seems comfortable on supplement oxygen - c/o shortness of breath per staff - no new events reported last night Constitutional: requiring O2 Eyes: no complaints ENT: no complaints Respiratory: no complaints Cardiovascular: no complaints Gastrointestinal: no complaints Genitourinary: no complaints Musculoskeletal: no complaints Exam/Review of Systems Exam Vitals Vital Signs Date Temp Pulse Resp B/P (MAP) Pulse Ox O2 O2 Flow FiO2 Time Delivery Rate 01/14/19 97.8 75 19 128/81 96 08:15 (97) 01/14/19 Nasal 2.0 07:50 Cannula Intake and Output 01/13/19 01/13/19 01/14/19 1515:00 23:00 07:00 IntakeIntake Total 650 ml 380 ml 350 ml BalanceBalance 650 ml 380 ml 350 ml Constitutional: alert, well developed Psych: nl mood/affect Head: atraumatic Eyes: nl conjunctiva, nl lids, nl sclera ENMT: nl external ears & nose Neck: non-tender Respiratory: diminished breath sounds (at bases bilatrally) Cardiovascular: nl pulses, other (s1s2) Gastrointestinal: soft, non-tender Musculoskeletal: nl extremities to inspection Extremities: normal pulses Neurological: nl speech, other (alert/responsive) Skin: nl turgor Lymph: nontender Results Results 24hrs Laboratory Tests Test 01/14/19 05:10 Sodium Level 139 Potassium Level 4.7 Chloride Level 97 Carbon Dioxide Level 36 H Anion Gap 6 Blood Urea Nitrogen 16 Creatinine 0.73 Est Glomerular Filtrat Rate mL/min Glucose Level 88 Calcium Level 8.6 Medications Medication Current Medications Ceftriaxone Sodium 50 ml @ 100 mls/hr Q24H IVPB Last administered on 01/14/19 09:21; Admin Dose 100 MLS/HR; Start 01/12/19 at 09:00 Azithromycin 250 mg/Sodium Chloride 250 ml @ 250 mls/hr Q24H IVPB Last administered on 01/13/19 09:56; Admin Dose 250 MLS/HR; Start 01/12/19 at 10:00 Ondansetron HCl (Zofran Inj) 4 mg Q6H PRN IV NAUSEA/VOMITING; Start 01/11/19 at 14:30 Acetaminophen (Tylenol Tab) 650 mg Q6H PRN PO .PAIN 1-3 OR TEMP Last administered on 01/14/19 07:48; Admin Dose 650 MG; Start 01/11/19 at 14:30 Docusate Sodium (Colace) 100 mg Q12H PRN PO .CONSTIPATION; Start 01/11/19 at 14:30 Magnesium Hydroxide (Milk Of Mag) 30 ml DAILY PRN PO .CONSTIPATION; Start 01/11/19 at 14:30 Zolpidem Tartrate (Ambien) 5 mg QHS PRN PO .INSOMNIA; Start 01/11/19 at 14:30 Famotidine (Pepcid) 20 mg DAILY PO Last administered on 01/14/19 09:21; Admin Dose 20 MG; Start 01/11/19 at 14:30 Enoxaparin Sodium (Lovenox) 30 mg DAILY SC Last administered on 01/14/19 09:21; Admin Dose 30 MG; Start 01/12/19 at 09:00 Guaifenesin/ Dextromethorphan (Robitussin Dm Liquid Cup) 10 ml Q4H PRN PO COUGH Last administered on 01/13/19 20:16; Admin Dose 10 ML; Start 01/13/19 at 16:30 LUIS MANUEL RAMIREZ Jan 14, 2019 10:32
[2019-01-14] MEDS: AZITHROMYCIN 250 MG in SOD CHLORIDE 0.9% 250 ML IVPB SCH (11:09)
[2019-01-14 14:00] VITALS: BP 146/82; PULSE 79; RESP 19
--- NOTE | 2019-01-14 14:47 | CONS ---
Assessment/Plan Assessment/Plan Hospital Course (Demo Recall) Patient is alert and feels much better looks comfortable no shortness of breath no fevers. BUN 16 creatinine 0.73. Antimicrobials Zithromax Rocephin. PHYSICAL EXAMINATION: GENERAL: This is a well-nourished, well-developed, very pleasant elderly woman who is alert, in no distress. HEENT: Head is atraumatic, normocephalic. Sclerae are anicteric. Buccal mucosa is dry. NECK: Supple. CHEST: Rise symmetrical. Breath sounds diminished bases HEART: S1, S2. ABDOMEN: Soft. Bowel tones are present. EXTREMITIES: Without cyanosis. Assessment: 1. Community-acquired bronchitis 2. Hypertension 3. History of pulmonary emboli Plan: Patient is doing better were going to change Zithromax to oral administration, continue Rocephin Consultation Date/Type/Reason Admit Date/Time Jan 11, 2019 at 09:38 Initial Consult Date Type of Consult id Date/Time of Note DATE: 01/14/19 TIME: 14:47 Exam/Review of Systems Exam Vitals Vital Signs Date Temp Pulse Resp B/P (MAP) Pulse Ox O2 O2 Flow FiO2 Time Delivery Rate 01/14/19 2.0 13:07 01/14/19 97.8 75 19 128/81 96 08:15 (97) 01/14/19 Nasal 07:50 Cannula Intake and Output 01/13/19 01/13/19 01/14/19 1414:59 22:59 06:59 IntakeIntake Total 650 ml 380 ml 350 ml BalanceBalance 650 ml 380 ml 350 ml Results Result Diagram: 01/12/19 0505 01/14/19 0510 Results 24hrs Laboratory Tests Test 01/14/19 05:10 Sodium Level 139 Potassium Level 4.7 Chloride Level 97 Carbon Dioxide Level 36 H Anion Gap 6 Blood Urea Nitrogen 16 Creatinine 0.73 Est Glomerular Filtrat Rate mL/min Glucose Level 88 Calcium Level 8.6 Medications Medication Current Medications Ceftriaxone Sodium 50 ml @ 100 mls/hr Q24H IVPB Last administered on 01/14/19at 09:21; Admin Dose 100 MLS/HR; Start 01/12/19 at 09:00 Azithromycin 250 mg/Sodium Chloride 250 ml @ 250 mls/hr Q24H IVPB Last administered on 01/14/19at 11:09; Admin Dose 250 MLS/HR; Start 01/12/19 at 10:00 Ondansetron HCl (Zofran Inj) 4 mg Q6H PRN IV NAUSEA/VOMITING; Start 01/11/19 at 14:30 Acetaminophen (Tylenol Tab) 650 mg Q6H PRN PO .PAIN 1-3 OR TEMP Last administered on 01/14/19 07:48; Admin Dose 650 MG; Start 01/11/19 at 14:30 Docusate Sodium (Colace) 100 mg Q12H PRN PO .CONSTIPATION; Start 01/11/19 at 14:30 Magnesium Hydroxide (Milk Of Mag) 30 ml DAILY PRN PO .CONSTIPATION; Start 01/11/19 at 14:30 Zolpidem Tartrate (Ambien) 5 mg QHS PRN PO .INSOMNIA; Start 01/11/19 at 14:30 Famotidine (Pepcid) 20 mg DAILY PO Last administered on 01/14/19 09:21; Admin Dose 20 MG; Start 01/11/19 at 14:30 Enoxaparin Sodium (Lovenox) 30 mg DAILY SC Last administered on 01/14/19 09:21; Admin Dose 30 MG; Start 01/12/19 at 09:00 Guaifenesin/ Dextromethorphan (Robitussin Dm Liquid Cup) 10 ml Q4H PRN PO COUGH Last administered on 01/13/19at 20:16; Admin Dose 10 ML; Start 01/13/19 at 16:30 JEFFY SNELL NP Jan 14, 2019 14:47
[2019-01-14 20:08] VITALS: BP 146/67; PULSE 83; RESP 20
[2019-01-15 02:51] VITALS: BP 132/61; PULSE 80; RESP 20
[2019-01-15] MEDS: AZITHROMYCIN 250 MG TAB PO SCH (08:22)
[2019-01-15] MEDS: FAMOTIDINE 20 MG TAB PO SCH (08:23)
[2019-01-15] MEDS: CEFTRIAXONE 1 GM/50 ML (PMX) 50 ML IVPB SCH (08:23)
[2019-01-15] MEDS: ENOXAPARIN 30 MG/0.3 ML SYG SC SCH (08:25)
[2019-01-15 08:33] VITALS: BP 149/70; PULSE 82; RESP 20
--- NOTE | 2019-01-15 11:42 | PN ---
Date/Time of Note Date/Time of Note DATE: 01/15/19 TIME: 11:41 Assessment/Plan VTE Prophylaxis Risk score (from Ns)>0 risk: 4 SCD applied (from Ns): Yes Pharmacological prophylaxis: LMWH Lines/Catheters IV [facility]from [facility] Saline Lock Assessment/Plan Hospital Course -Acute hypoxemic respiratory insufficiency, continue oxygen supplementation. CTA is negative for PE. -Upper respiratory infection, continue antibiotics. -Bronchitis -Pulmonary fibrosis -Hypertension -Hyperlipidemia -Left diaphragmatic hernia Result Diagram: 01/15/1951901/15/19 0520 Results 24hrs Laboratory Tests Test 01/15/19 05:20 White Blood Count 4.5 #L Red Blood Count 3.94 L Hemoglobin 11.3 L Hematocrit 38.0 Mean Corpuscular Volume 96.4 Mean Corpuscular Hemoglobin 28.7 L Mean Corpuscular Hemoglobin Concent 29.7 L Red Cell Distribution Width 12.5 Platelet Count 204 Mean Platelet Volume 9.1 Immature Granulocytes % 0.200 Neutrophils % 51.4 Lymphocytes % 34.4 Monocytes % 8.0 Eosinophils % 5.6 Basophils % 0.4 Nucleated Red Blood Cells % 0.0 Immature Granulocytes # 0.010 Neutrophils # 2.3 Lymphocytes # 1.6 Monocytes # 0.4 Eosinophils # 0.3 Basophils # 0.0 Nucleated Red Blood Cells # 0.0 Sodium Level 142 Potassium Level 4.6 Chloride Level 98 Carbon Dioxide Level 38 H Anion Gap 6 Blood Urea Nitrogen 11 Creatinine 0.65 Est Glomerular Filtrat Rate mL/min Glucose Level 94 Calcium Level 8.8 Subjective 24 Hr Interval Summary Free Text/Dictation Patient has no complaints Exam/Review of Systems Exam Vitals Vital Signs Date Temp Pulse Resp B/P (MAP) Pulse Ox O2 O2 Flow FiO2 Time Delivery Rate 01/15/19 Nasal 2.0 09:25 Cannula 01/15/19 98.1 82 20 149/70 97 08:33 (96) Intake and Output 01/14/19 01/14/19 01/15/19 1414:59 22:59 06:59 IntakeIntake Total 890 ml 600 ml 300 ml OutputOutput Total 1100 ml BalanceBalance 890 ml -500 ml 300 ml Constitutional: well developed Head: normocephalic, atraumatic Neck: supple Respiratory: diminished breath sounds Cardiovascular: regular rate and rhythm Gastrointestinal: soft, non-tender Extremities: normal pulses Results Results 24hrs Laboratory Tests Test 01/15/19 05:20 White Blood Count 4.5 #L Red Blood Count 3.94 L Hemoglobin 11.3 L Hematocrit 38.0 Mean Corpuscular Volume 96.4 Mean Corpuscular Hemoglobin 28.7 L Mean Corpuscular Hemoglobin Concent 29.7 L Red Cell Distribution Width 12.5 Platelet Count 204 Mean Platelet Volume 9.1 Immature Granulocytes % 0.200 Neutrophils % 51.4 Lymphocytes % 34.4 Monocytes % 8.0 Eosinophils % 5.6 Basophils % 0.4 Nucleated Red Blood Cells % 0.0 Immature Granulocytes # 0.010 Neutrophils # 2.3 Lymphocytes # 1.6 Monocytes # 0.4 Eosinophils # 0.3 Basophils # 0.0 Nucleated Red Blood Cells # 0.0 Sodium Level 142 Potassium Level 4.6 Chloride Level 98 Carbon Dioxide Level 38 H Anion Gap 6 Blood Urea Nitrogen 11 Creatinine 0.65 Est Glomerular Filtrat Rate mL/min Glucose Level 94 Calcium Level 8.8 Medications Medication Current Medications Ceftriaxone Sodium 50 ml @ 100 mls/hr Q24H IVPB Last administered on 01/15/19 08:23; Admin Dose 100 MLS/HR; Start 01/12/19 at 09:00 Ondansetron HCl (Zofran Inj) 4 mg Q6H PRN IV NAUSEA/VOMITING; Start 01/11/19 at 14:30 Acetaminophen (Tylenol Tab) 650 mg Q6H PRN PO .PAIN 1-3 OR TEMP Last administered on 01/14/19 18:01; Admin Dose 650 MG; Start 01/11/19 at 14:30 Docusate Sodium (Colace) 100 mg Q12H PRN PO .CONSTIPATION; Start 01/11/19 at 14:30 Magnesium Hydroxide (Milk Of Mag) 30 ml DAILY PRN PO .CONSTIPATION; Start 01/11/19 at 14:30 Zolpidem Tartrate (Ambien) 5 mg QHS PRN PO .INSOMNIA; Start 01/11/19 at 14:30 Famotidine (Pepcid) 20 mg DAILY PO Last administered on 01/15/19 08:23; Admin Dose 20 MG; Start 01/11/19 at 14:30 Enoxaparin Sodium (Lovenox) 30 mg DAILY SC Last administered on 01/15/19 08:25; Admin Dose 30 MG; Start 01/12/19 at 09:00 Guaifenesin/ Dextromethorphan (Robitussin Dm Liquid Cup) 10 ml Q4H PRN PO COUGH Last administered on 01/13/19at 20:16; Admin Dose 10 ML; Start 01/13/19 at 16:30 Azithromycin (Zithromax) 250 mg DAILY PO Last administered on 01/15/19at 08:22; Admin Dose 250 MG; Start 01/15/19 at 09:00 ISABELLE CUNHA Jan 15, 2019 11:42
[2019-01-15 15:22] VITALS: BP 130/61; PULSE 86; RESP 20
--- NOTE | 2019-01-15 17:00 | CONS ---
Consultation Date/Type/Reason Admit Date/Time Jan 11, 2019 at 09:38 Initial Consult Date SUBJECTIVE: Patient is awake, alert , afebrile. Vs: stable T: 97.9 LABS: Reviewed. WBC-4.5 Antimicrobials Zithromax PO and Rocephin. PHYSICAL EXAMINATION: GENERAL: This is a well-nourished, well-developed, very pleasant elderly woman who is alert, in no distress. HEENT: Head is atraumatic, normocephalic. Sclerae are anicteric. Buccal mucosa is dry. NECK: Supple. CHEST: Rise symmetrical. Breath sounds diminished bases HEART: S1, S2. ABDOMEN: Soft. Bowel tones are present. EXTREMITIES: Without cyanosis. Assessment: 1. Community-acquired bronchitis 2. Hypertension 3. History of pulmonary emboli Plan: Patient is gradually improving and stable. Continue current antbx. Date/Time of Note DATE: 01/15/19 TIME: 16:58 Exam/Review of Systems Exam Vitals Vital Signs Date Temp Pulse Resp B/P (MAP) Pulse Ox O2 O2 Flow FiO2 Time Delivery Rate 01/15/19 97.9 86 20 130/61 98 Nasal 2.0 15:22 (84) Cannula Intake and Output 01/14/19 01/14/19 01/15/19 1414:59 22:59 06:59 IntakeIntake Total 890 ml 600 ml 300 ml OutputOutput Total 1100 ml BalanceBalance 890 ml -500 ml 300 ml Results Result Diagram: 01/15/19 0520 01/15/19 0520 Results 24hrs Laboratory Tests Test 01/15/19 05:20 White Blood Count 4.5 #L Red Blood Count 3.94 L Hemoglobin 11.3 L Hematocrit 38.0 Mean Corpuscular Volume 96.4 Mean Corpuscular Hemoglobin 28.7 L Mean Corpuscular Hemoglobin Concent 29.7 L Red Cell Distribution Width 12.5 Platelet Count 204 Mean Platelet Volume 9.1 Immature Granulocytes % 0.200 Neutrophils % 51.4 Lymphocytes % 34.4 Monocytes % 8.0 Eosinophils % 5.6 Basophils % 0.4 Nucleated Red Blood Cells % 0.0 Immature Granulocytes # 0.010 Neutrophils # 2.3 Lymphocytes # 1.6 Monocytes # 0.4 Eosinophils # 0.3 Basophils # 0.0 Nucleated Red Blood Cells # 0.0 Sodium Level 142 Potassium Level 4.6 Chloride Level 98 Carbon Dioxide Level 38 H Anion Gap 6 Blood Urea Nitrogen 11 Creatinine 0.65 Est Glomerular Filtrat Rate mL/min Glucose Level 94 Calcium Level 8.8 Medications Medication Current Medications Ceftriaxone Sodium 50 ml @ 100 mls/hr Q24H IVPB Last administered on 01/15/19 08:23; Admin Dose 100 MLS/HR; Start 01/12/19 at 09:00 Ondansetron HCl (Zofran Inj) 4 mg Q6H PRN IV NAUSEA/VOMITING; Start 01/11/19 at 14:30 Acetaminophen (Tylenol Tab) 650 mg Q6H PRN PO .PAIN 1-3 OR TEMP Last administered on 01/14/19 18:01; Admin Dose 650 MG; Start 01/11/19 at 14:30 Docusate Sodium (Colace) 100 mg Q12H PRN PO .CONSTIPATION; Start 01/11/19 at 14:30 Magnesium Hydroxide (Milk Of Mag) 30 ml DAILY PRN PO .CONSTIPATION; Start 01/11/19 at 14:30 Zolpidem Tartrate (Ambien) 5 mg QHS PRN PO .INSOMNIA; Start 01/11/19 at 14:30 Famotidine (Pepcid) 20 mg DAILY PO Last administered on 01/15/19 08:23; Admin Dose 20 MG; Start 01/11/19 at 14:30 Enoxaparin Sodium (Lovenox) 30 mg DAILY SC Last administered on 01/15/19 08:25; Admin Dose 30 MG; Start 01/12/19 at 09:00 Guaifenesin/ Dextromethorphan (Robitussin Dm Liquid Cup) 10 ml Q4H PRN PO COUGH Last administered on 01/13/19 20:16; Admin Dose 10 ML; Start 01/13/19 at 16:30 Azithromycin (Zithromax) 250 mg DAILY PO Last administered on 01/15/19 08:22; Admin Dose 250 MG; Start 01/15/19 at 09:00 FLORIN DICKINSON Jan 15, 2019 17:00
[2019-01-15] MEDS: ACETAMINOPHEN 325 MG TAB PO PRN (19:58)
[2019-01-15 20:00] VITALS: BP 148/74; PULSE 86; RESP 19
[2019-01-15] MEDS: GUAIFENESIN/DM 5ML CUP PO PRN (20:04)
[2019-01-16 02:00] VITALS: BP 117/5; PULSE 78; RESP 19
[2019-01-16 08:30] VITALS: BP 130/76; PULSE 79; RESP 17
[2019-01-16] MEDS: AZITHROMYCIN 250 MG TAB PO SCH (08:34)
[2019-01-16] MEDS: CEFTRIAXONE 1 GM/50 ML (PMX) 50 ML IVPB SCH (08:34)
[2019-01-16] MEDS: FAMOTIDINE 20 MG TAB PO SCH (08:34)
[2019-01-16] MEDS: ENOXAPARIN 30 MG/0.3 ML SYG SC SCH (08:35)
[2019-01-16] MEDS: ACETAMINOPHEN 325 MG TAB PO PRN (08:42)
--- NOTE | 2019-01-16 12:30 | PN ---
Date/Time of Note Date/Time of Note DATE: 01/16/19 TIME: 12:30 Assessment/Plan VTE Prophylaxis Risk score (from Ns)>0 risk: 4 SCD applied (from Ns): Yes Pharmacological prophylaxis: LMWH Lines/Catheters IV Catheter Type (from Nrs): Saline Lock Assessment/Plan Hospital Course -Acute hypoxemic respiratory insufficiency, continue oxygen supplementation. CTA is negative for PE. -Upper respiratory infection, continue antibiotics. -Bronchitis -Pulmonary fibrosis -Hypertension -Hyperlipidemia -Left diaphragmatic hernia Result Diagram: 01/15/1951901/15/19519 Subjective 24 Hr Interval Summary Free Text/Dictation Patient complains of phlegm Exam/Review of Systems Exam Vitals Vital Signs Date Temp Pulse Resp B/P (MAP) Pulse Ox O2 O2 Flow FiO2 Time Delivery Rate 01/16/19 98.5 79 17 130/76 92 08:30 (94) 01/16/19 Nasal 2.0 08:05 Cannula Intake and Output 01/15/19 01/15/19 01/16/19 1515:00 23:00 07:00 IntakeIntake Total 890 ml 320 ml BalanceBalance 890 ml 320 ml Constitutional: well developed Head: normocephalic, atraumatic Neck: supple Respiratory: diminished breath sounds Cardiovascular: regular rate and rhythm Gastrointestinal: soft, non-tender Extremities: normal pulses Medications Medication Current Medications Ceftriaxone Sodium 50 ml @ 100 mls/hr Q24H IVPB Last administered on 01/16/19at 08:34; Admin Dose 100 MLS/HR; Start 01/12/19 at 09:00 Ondansetron HCl (Zofran Inj) 4 mg Q6H PRN IV NAUSEA/VOMITING; Start 01/11/19 at 14:30 Acetaminophen (Tylenol Tab) 650 mg Q6H PRN PO .PAIN 1-3 OR TEMP Last administered on 01/16/19at 08:42; Admin Dose 650 MG; Start 01/11/19 at 14:30 Docusate Sodium (Colace) 100 mg Q12H PRN PO .CONSTIPATION; Start 01/11/19 at 14:30 Magnesium Hydroxide (Milk Of Mag) 30 ml DAILY PRN PO .CONSTIPATION; Start 01/11/19 at 14:30 Zolpidem Tartrate (Ambien) 5 mg QHS PRN PO .INSOMNIA; Start 01/11/19 at 14:30 Famotidine (Pepcid) 20 mg DAILY PO Last administered on 01/16/19 08:34; Admin Dose 20 MG; Start 01/11/19 at 14:30 Enoxaparin Sodium (Lovenox) 30 mg DAILY SC Last administered on 01/16/19 08: 35; Admin Dose 30 MG; Start 01/12/19 at 09:00 Guaifenesin/ Dextromethorphan (Robitussin Dm Liquid Cup) 10 ml Q4H PRN PO COUGH Last administered on 01/15/19at 20:04; Admin Dose 10 ML; Start 01/13/19 at 16:30 Azithromycin (Zithromax) 250 mg DAILY PO Last administered on 01/16/19 08:34; Admin Dose 250 MG; Start 01/15/19 at 09:00 ISABELLE CUNHA 10, 2019 12:30
--- NOTE | 2019-01-16 12:57 | CONS ---
Consultation Date/Type/Reason Admit Date/Time Jan 11, 2019 at 09:38 Initial Consult Date SUBJECTIVE: Patient is awake, alert , afebrile. No acute events over night Vs: stable T: 98.5 LABS: Reviewed. Antimicrobials Zithromax PO and Rocephin. PHYSICAL EXAMINATION: GENERAL: This is a well-nourished, well-developed, very pleasant elderly [place] woman who is alert, in no distress. HEENT: Head is atraumatic, normocephalic. Sclerae are anicteric. Buccal mucosa is dry. NECK: Supple. CHEST: Rise symmetrical. Breath sounds diminished bases HEART: S1, S2. ABDOMEN: Soft. Bowel tones are present. EXTREMITIES: Without cyanosis. Assessment: 1. Community-acquired bronchitis 2. Hypertension 3. History of pulmonary emboli Plan: Patient is gradually improving and stable. Continue current antbx. Date/Time of Note DATE: 01/16/19 TIME: 12:56 Exam/Review of Systems Exam Vitals Vital Signs Date Temp Pulse Resp B/P (MAP) Pulse Ox O2 O2 Flow FiO2 Time Delivery Rate 01/16/19 98.5 79 17 130/76 92 08:30 (94) 01/16/19 Nasal 2.0 08:05 Cannula Intake and Output 01/15/19 01/15/19 01/16/19 1515:00 23:00 07:00 IntakeIntake Total 890 ml 320 ml BalanceBalance 890 ml 320 ml Results Result Diagram: 01/15/19 0520 01/15/19 0520 Medications Medication Current Medications Ceftriaxone Sodium 50 ml @ 100 mls/hr Q24H IVPB Last administered on 01/16/19at 08:34; Admin Dose 100 MLS/HR; Start 01/12/19 at 09:00 Ondansetron HCl (Zofran Inj) 4 mg Q6H PRN IV NAUSEA/VOMITING; Start 01/11/19 at 14:30 Acetaminophen (Tylenol Tab) 650 mg Q6H PRN PO .PAIN 1-3 OR TEMP Last administered on 01/16/19at 08:42; Admin Dose 650 MG; Start 01/11/19 at 14:30 Docusate Sodium (Colace) 100 mg Q12H PRN PO .CONSTIPATION; Start 01/11/19 at 14:30 Magnesium Hydroxide (Milk Of Mag) 30 ml DAILY PRN PO .CONSTIPATION; Start 01/11/19 at 14:30 Zolpidem Tartrate (Ambien) 5 mg QHS PRN PO .INSOMNIA; Start 01/11/19 at 14:30 Famotidine (Pepcid) 20 mg DAILY PO Last administered on 01/16/19at 08:34; Admin Dose 20 MG; Start 01/11/19 at 14:30 Enoxaparin Sodium (Lovenox) 30 mg DAILY SC Last administered on 01/16/19at 08:35; Admin Dose 30 MG; Start 01/12/19 at 09:00 Guaifenesin/ Dextromethorphan (Robitussin Dm Liquid Cup) 10 ml Q4H PRN PO COUGH Last administered on 01/15/19at 20:04; Admin Dose 10 ML; Start 01/13/19 at 16:30 Azithromycin (Zithromax) 250 mg DAILY PO Last administered on 01/16/19 08:34; Admin Dose 250 MG; Start 01/15/19 at 09:00 Albuterol (Proventil 0.083% (Neb)) 2.5 mg Q6H RESP THERAPY PRN HHN SHORTNESS OF BREATH; Start 01/16/19 at 12:30 FLORIN DICKINSON Jan 16, 2019 12:57
[2019-01-16 14:00] VITALS: BP 130/60; PULSE 78; RESP 18
[2019-01-16] MEDS: ALBUTEROL 0.083% (NEB) 2.5 MG/3 ML AMP HHN PRN ×2 (14:33→21:49)
[2019-01-16 20:00] VITALS: BP 131/63; PULSE 84; RESP 19
[2019-01-17 02:00] VITALS: BP 116/58; PULSE 87; RESP 19
[2019-01-17 08:24] VITALS: BP 123/59; PULSE 77; RESP 17
[2019-01-17] MEDS: CEFTRIAXONE 1 GM/50 ML (PMX) 50 ML IVPB SCH (09:12)
[2019-01-17] MEDS: ACETAMINOPHEN 325 MG TAB PO PRN (09:12)
[2019-01-17] MEDS: AZITHROMYCIN 250 MG TAB PO SCH (09:12)
[2019-01-17] MEDS: FAMOTIDINE 20 MG TAB PO SCH (09:12)
[2019-01-17] MEDS: ENOXAPARIN 30 MG/0.3 ML SYG SC SCH (09:14)
--- NOTE | 2019-01-17 11:54 | PN ---
Date/Time of Note Date/Time of Note DATE: 01/17/19 TIME: 11:52 Assessment/Plan VTE Prophylaxis Risk score (from Ns)>0 risk: 4 SCD applied (from Ns): Yes Pharmacological prophylaxis: LMWH Lines/Catheters IV [facility]from [facility] Saline Lock Assessment/Plan Hospital Course Patient complains of cough, continues on Rocephin and Zithromax, patient continues on supplemental oxygen via nasal cannula, will try to wean oxygen if possible. PT eval. Assessment/Plan -Acute hypoxemic respiratory insufficiency, continue oxygen supplementation. CTA is negative for PE. -Upper respiratory infection, continue antibiotics per ID. Dr. Sampson is following in infection disease consultation. -Bronchitis -Pulmonary fibrosis per CT -Hypertension -Hyperlipidemia -Left diaphragmatic hernia Further recommendations based on clinical course. Plan of care discussed with Dr. Abarca. Result Diagram: 01/15/1951901/15/19519 Exam/Review of Systems Exam Vitals Vital Signs Date Temp Pulse Resp B/P (MAP) Pulse Ox O2 O2 Flow FiO2 Time Delivery Rate 01/17/19 Nasal 2.0 10:00 Cannula 01/17/19 97.7 09:57 01/17/19 77 17 123/59 97 08:24 (80) Intake and Output 01/16/19 01/16/19 01/17/19 1414:59 22:59 06:59 IntakeIntake Total 530 ml 240 ml 480 ml BalanceBalance 530 ml 240 ml 480 ml Exam Constitutional: alert, oriented Respiratory: clear to auscultation Cardiovascular: nl pulses Gastrointestinal: soft, non-tender Musculoskeletal: nl extremities to inspection Extremities: normal pulses Neurological: nl mental status Medications Medication Current Medications Ceftriaxone Sodium 50 ml @ 100 mls/hr Q24H IVPB Last administered on 01/17/19at 09:12; Admin Dose 100 MLS/HR; Start 01/12/19 at 09:00 Ondansetron HCl (Zofran Inj) 4 mg Q6H PRN IV NAUSEA/VOMITING; Start 01/11/19 at 14:30 Acetaminophen (Tylenol Tab) 650 mg Q6H PRN PO .PAIN 1-3 OR TEMP Last administered on 01/17/19at 09:12; Admin Dose 650 MG; Start 01/11/19 at 14:30 Docusate Sodium (Colace) 100 mg Q12H PRN PO .CONSTIPATION; Start 01/11/19 at 14:30 Magnesium Hydroxide (Milk Of Mag) 30 ml DAILY PRN PO .CONSTIPATION; Start 01/11/19 at 14:30 Zolpidem Tartrate (Ambien) 5 mg QHS PRN PO .INSOMNIA; Start 01/11/19 at 14:30 Famotidine (Pepcid) 20 mg DAILY PO Last administered on 01/17/19 09:12; Admin Dose 20 MG; Start 01/11/19 at 14:30 Enoxaparin Sodium (Lovenox) 30 mg DAILY SC Last administered on 01/17/19 09:14; Admin Dose 30 MG; Start 01/12/19 at 09:00 Guaifenesin/ Dextromethorphan (Robitussin Dm Liquid Cup) 10 ml Q4H PRN PO COUGH Last administered on 01/15/19 20:04; Admin Dose 10 ML; Start 01/13/19 at 16:30 Azithromycin (Zithromax) 250 mg DAILY PO Last administered on 01/17/19 09:12; Admin Dose 250 MG; Start 01/15/19 at 09:00 Albuterol (Proventil 0.083% (Neb)) 2.5 mg Q6H RESP THERAPY PRN HHN SHORTNESS OF BREATH Last administered on 01/16/19at 21:49; Admin Dose 2.5 MG; Start 01/16/19 at 12:30 DORENE AGUIRRE Jan 17, 2019 11:54
--- NOTE | 2019-01-17 13:00 | CONS ---
Assessment/Plan Assessment/Plan Hospital Course (Demo Recall) Patient is alert fels better Antimicrobials: Zithromax Rocephin. PHYSICAL EXAMINATION: GENERAL: This is a well-nourished, well-developed, very pleasant elderly woman who is alert, in no distress. HEENT: Head is atraumatic, normocephalic. Sclerae are anicteric. Buccal mucosa is dry. NECK: Supple. CHEST: Rise symmetrical. Breath sounds diminished bases HEART: S1, S2. ABDOMEN: Soft. Bowel tones are present. EXTREMITIES: Without cyanosis. Assessment: 1. Community-acquired bronchitis 2. Hypertension 3. History of pulmonary emboli Plan: Patient is doing better, dc abx and monitor Consultation Date/Type/Reason Admit Date/Time Jan 11, 2019 at 09:38 Initial Consult Date Type of Consult id Date/Time of Note DATE: 01/17/19 TIME: 12:59 Exam/Review of Systems Exam Vitals Vital Signs Date Temp Pulse Resp B/P (MAP) Pulse Ox O2 O2 Flow FiO2 Time Delivery Rate 01/17/19 Nasal 2.0 10:00 Cannula 01/17/19 97.7 09:57 01/17/19 77 17 123/59 97 08:24 (80) Intake and Output 01/16/19 01/16/19 01/17/19 1414:59 22:59 06:59 IntakeIntake Total 530 ml 240 ml 480 ml BalanceBalance 530 ml 240 ml 480 ml Results Result Diagram: 01/15/19 0520 01/15/19 0520 Medications Medication Current Medications Ceftriaxone Sodium 50 ml @ 100 mls/hr Q24H IVPB Last administered on 01/17/19at 09:12; Admin Dose 100 MLS/HR; Start 01/12/19 at 09:00 Ondansetron HCl (Zofran Inj) 4 mg Q6H PRN IV NAUSEA/VOMITING; Start 01/11/19 at 14:30 Acetaminophen (Tylenol Tab) 650 mg Q6H PRN PO .PAIN 1-3 OR TEMP Last administered on 01/17/19at 09:12; Admin Dose 650 MG; Start 01/11/19 at 14:30 Docusate Sodium (Colace) 100 mg Q12H PRN PO .CONSTIPATION; Start 01/11/19 at 14:30 Magnesium Hydroxide (Milk Of Mag) 30 ml DAILY PRN PO .CONSTIPATION; Start 01/11/19 at 14:30 Zolpidem Tartrate (Ambien) 5 mg QHS PRN PO .INSOMNIA; Start 01/11/19 at 14:30 Famotidine (Pepcid) 20 mg DAILY PO Last administered on 01/17/19 09:12; Admin Dose 20 MG; Start 01/11/19 at 14:30 Enoxaparin Sodium (Lovenox) 30 mg DAILY SC Last administered on 01/17/19 09:14; Admin Dose 30 MG; Start 01/12/19 at 09:00 Guaifenesin/ Dextromethorphan (Robitussin Dm Liquid Cup) 10 ml Q4H PRN PO COUGH Last administered on 01/15/19 20:04; Admin Dose 10 ML; Start 01/13/19 at 16:30 Azithromycin (Zithromax) 250 mg DAILY PO Last administered on 01/17/19 09:12; Admin Dose 250 MG; Start 01/15/19 at 09:00 Albuterol (Proventil 0.083% (Neb)) 2.5 mg Q6H RESP THERAPY PRN HHN SHORTNESS OF BREATH Last administered on 01/16/19 21:49; Admin Dose 2.5 MG; Start 01/16/19 at 12:30 JEFFY SNELL NP Jan 17, 2019 13:00
[2019-01-17 14:26] VITALS: BP 139/60; PULSE 76; RESP 19
[2019-01-17] MEDS: METHYLPREDNISOLONE 40 MG INJ IV SCH (19:12)
[2019-01-17] MEDS: ALBUTEROL 0.083% (NEB) 2.5 MG/3 ML AMP HHN SCH (19:50)
[2019-01-17 20:35] VITALS: BP 144/65; PULSE 82; RESP 16
[2019-01-18] MEDS: ALBUTEROL 0.083% (NEB) 2.5 MG/3 ML AMP HHN SCH ×3 (01:44→14:16)
[2019-01-18 02:10] VITALS: BP 129/58; PULSE 81; RESP 18
[2019-01-18 08:21] VITALS: BP 115/66; PULSE 81; RESP 20
[2019-01-18] MEDS: METHYLPREDNISOLONE 40 MG INJ IV SCH (09:37)
[2019-01-18] MEDS: FAMOTIDINE 20 MG TAB PO SCH (09:37)
[2019-01-18] MEDS: ENOXAPARIN 30 MG/0.3 ML SYG SC SCH (09:39)
--- NOTE | 2019-01-18 13:01 | CONS ---
Assessment/Plan Assessment/Plan Hospital Course (Demo Recall) All noted, no events, no SOB, no fevers Antimicrobials: s/p Zithromax Rocephin. PHYSICAL EXAMINATION: GENERAL: This is a well-nourished, well-developed, very pleasant elderly woman who is alert, in no distress. HEENT: Head is atraumatic, normocephalic. Sclerae are anicteric. Buccal mucosa is dry. NECK: Supple. CHEST: Rise symmetrical. Breath sounds diminished bases HEART: S1, S2. ABDOMEN: Soft. Bowel tones are present. EXTREMITIES: Without cyanosis. Assessment: 1. Community-acquired bronchitis 2. Hypertension 3. History of pulmonary emboli Plan: Stable off abx, pending dc Consultation Date/Type/Reason Admit Date/Time Jan 11, 2019 at 09:38 Initial Consult Date Type of Consult id Date/Time of Note DATE: 01/18/19 TIME: 13:00 Exam/Review of Systems Exam Vitals Vital Signs Date Temp Pulse Resp B/P (MAP) Pulse Ox O2 O2 Flow FiO2 Time Delivery Rate 01/18/19 98.0 81 20 115/66 100 Room Air 08:21 (82) 01/18/19 2.0 08:02 01/18/19 21 01:44 Intake and Output 01/17/19 01/17/19 01/18/19 1515:00 23:00 07:00 IntakeIntake Total 750 ml 240 ml BalanceBalance 750 ml 240 ml Results Result Diagram: 01/18/19 0557 01/18/19 0557 Results 24hrs Laboratory Tests Test 01/18/19 05:57 White Blood Count 4.9 Red Blood Count 4.30 Hemoglobin 12.2 Hematocrit 40.7 Mean Corpuscular Volume 94.7 Mean Corpuscular Hemoglobin 28.4 L Mean Corpuscular Hemoglobin Concent 30.0 L Red Cell Distribution Width 12.5 Platelet Count 218 Mean Platelet Volume 9.0 Immature Granulocytes % 0.400 Neutrophils % 83.6 H Lymphocytes % 14.0 L Monocytes % 1.6 Eosinophils % 0.0 Basophils % 0.4 Nucleated Red Blood Cells % 0.0 Immature Granulocytes # 0.020 Neutrophils # 4.1 Lymphocytes # 0.7 L Monocytes # 0.1 L Eosinophils # 0.0 Basophils # 0.0 Nucleated Red Blood Cells # 0.0 Sodium Level 138 Potassium Level 4.9 Chloride Level 94 L Carbon Dioxide Level 37 H Anion Gap 7 Blood Urea Nitrogen 18 Creatinine 0.61 Est Glomerular Filtrat Rate mL/min Glucose Level 127 Calcium Level 9.3 Magnesium Level 2.2 Medications Medication Current Medications Ondansetron HCl (Zofran Inj) 4 mg Q6H PRN IV NAUSEA/VOMITING; Start 01/11/19 at 14:30 Acetaminophen (Tylenol Tab) 650 mg Q6H PRN PO .PAIN 1-3 OR TEMP Last administered on 01/17/19 09:12; Admin Dose 650 MG; Start 01/11/19 at 14:30 Docusate Sodium (Colace) 100 mg Q12H PRN PO .CONSTIPATION; Start 01/11/19 at 14:30 Magnesium Hydroxide (Milk Of Mag) 30 ml DAILY PRN PO .CONSTIPATION; Start 01/11/19 at 14:30 Zolpidem Tartrate (Ambien) 5 mg QHS PRN PO .INSOMNIA; Start 01/11/19 at 14:30 Famotidine (Pepcid) 20 mg DAILY PO Last administered on 01/18/19 09:37; Admin Dose 20 MG; Start 01/11/19 at 14:30 Enoxaparin Sodium (Lovenox) 30 mg DAILY SC Last administered on 01/18/19 09:39; Admin Dose 30 MG; Start 01/12/19 at 09:00 Guaifenesin/ Dextromethorphan (Robitussin Dm Liquid Cup) 10 ml Q4H PRN PO COUGH Last administered on 01/15/19 20:04; Admin Dose 10 ML; Start 01/13/19 at 16:30 Albuterol (Proventil 0.083% (Neb)) 2.5 mg Q6H RESP THERAPY HHN Last administered on 01/18/19 07:52; Admin Dose 2.5 MG; Start 01/17/19 at 20:00 Methylprednisolone Sodium Succinate (Solu-Medrol) 40 mg QAM IV Last administered on 01/18/19 09:37; Admin Dose 40 MG; Start 01/17/19 at 18:00 JEFFY SNELL NP Jan 18, 2019 13:01
[2019-01-18 15:04] VITALS: BP 118/67; PULSE 81; RESP 22
[2019-01-18] MEDS ORDERED: MED4DP PO (15:47)
--- NOTE | 2019-01-18 17:38 | DS ---
Date/Time of Note Date/Time of Note DATE: 01/18/19 TIME: 17:36 Discharge Summary Admission/Discharge Info Admit Date/Time Jan 11, 2019 at 09:38 Discharge Date/Time Patient Condition: Stable Hx of Present Illness The patient is a 83-year-old female with history of hypertension, hyperlipidemia history of pulmonary emboli more than a year ago. Patient presented to emergency room with complaints of fever, productive cough, sore throat, and generalized body ache for last couple of weeks. Patient stated that she was taking some [id number] medicine which did not help. Patient denies any nausea vomiting diarrhea denies chest pain denies bilateral lower extremities edema. Patient noted to have below normal oxygen saturation on room air and was placed on oxygen via nasal cannula, chest x-ray did not reveal pneumonia. Patient was diagnosed with acute respiratory failure infection and bronchitis and admitted for further evaluation and management. Hospital Course -Acute hypoxemic respiratory insufficiency, continue oxygen supplementation. CTA is negative for PE. -Upper respiratory infection, completed antibiotics. Dr. Sampson is following in infection disease consultation. -Bronchitis, continue steroids. -Pulmonary fibrosis per CT -Hypertension -Hyperlipidemia -Left diaphragmatic hernia Plan of care discussed with Dr. Abarca. Home Meds Active Scripts Methylprednisolone* (Medrol* DOSE PACK) 4 Mg/Dose-Pack Tab.ds.pk, 4 MG PO . DIRECTED, #1 PACKET Prov:DORENE AGUIRRE 01/18/19 Doxycycline Hyclate* (Doxycycline Hyclate*) 100 Mg Tablet.dr, 100 MG PO BID for 10 Days, TAB Prov:RAVINDRA FERRER MD 08/21/18 Reported Medications Apixaban* (Eliquis*) 5 Mg Tablet, 5 MG PO BID, TAB 08/21/18 Follow-up Plan DC when arrange for nebulizer machine at home, pt is on oxygen at home, follow- up with PMD in 2 weeks Primary Care Provider Ehsan Abarca MD Time spent on discharge: > 30 minutes Pending Labs Laboratory Tests Test 01/18/19 05:57 White Blood Count 4.9 10^3/ul (4.8-10.8) Red Blood Count 4.30 10^6/ul (4.20-5.40) Hemoglobin 12.2 g/dl (12.0-16.0) Hematocrit 40.7 % (37.0-47.0) Mean Corpuscular Volume 94.7 fl (82.0-101.0) Mean Corpuscular Hemoglobin 28.4 pg (29.0-33.0) Mean Corpuscular Hemoglobin Concent 30.0 g/dl (32.0-37.0) Red Cell Distribution Width 12.5 % (11.5-14.5) Platelet Count 218 10^3/UL (140-415) Mean Platelet Volume 9.0 fl (7.4-10.4) Immature Granulocytes % 0.400 % (0.001-0.429) Neutrophils % 83.6 % (39.0-77.0) Lymphocytes % 14.0 % (15.0-51.0) Monocytes % 1.6 % (0.0-11.0) Eosinophils % 0.0 % (0.0-7.0) Basophils % 0.4 % (0.0-2.0) Nucleated Red Blood Cells % 0.0 /100WBC (0.0-0.0) Immature Granulocytes # 0.020 10^3/ul (0.0-0.031) Neutrophils # 4.1 10^3/ul (1.6-7.5) Lymphocytes # 0.7 10^3/ul (0.8-2.9) Monocytes # 0.1 10^3/ul (0.3-0.9) Eosinophils # 0.0 10^3/ul (0.0-0.5) Basophils # 0.0 10^3/ul (0.0-0.1) Nucleated Red Blood Cells # 0.0 10^3/ul (0.0-0.0) Sodium Level 138 mmol/L (135-144) Potassium Level 4.9 mmol/L (3.5-5.1) Chloride Level 94 mmol/L (97-110) Carbon Dioxide Level 37 mmol/L (21-31) Anion Gap 7 (5-13) Blood Urea Nitrogen 18 mg/dl (7-20) Creatinine 0.61 mg/dl (0.44-1.00) Est Glomerular Filtrat Rate mL/min mL/min (>60) Glucose Level 127 mg/dl (70-220) Calcium Level 9.3 mg/dl (8.4-10.2) Magnesium Level 2.2 mg/dl (1.7-2.5) DORENE AGUIRRE Jan 18, 2019 17:38
== END 2019-01-18 20:15 | disposition home health service (06) | DRG 189 ==
LOC: E/R 08:27 → PP2 09:38
PROVIDERS: ADMIT Internal Medicine; ATTEND Internal Medicine
PROC: 3E0F7GC Introduction of Other Therapeutic Substance into Respiratory Tract, Via Natural or Artificial Opening (ICD-10-PCS; principal; 2019-01-11)
DX: J96.01 Acute respiratory failure with hypoxia (principal); I48.2 Chronic atrial fibrillation; J84.10 Pulmonary fibrosis, unspecified; Z99.81 Dependence on supplemental oxygen; I10 Essential (primary) hypertension; J20.9 Acute bronchitis, unspecified; E78.5 Hyperlipidemia, unspecified; J06.9 Acute upper respiratory infection, unspecified; K44.9 Diaphragmatic hernia without obstruction or gangrene; Z87.891 Personal history of nicotine dependence; Z86.711 Personal history of pulmonary embolism; Z79.01 Long term (current) use of anticoagulants
CPT/HCPCS: 36415; 71045; 71275; 80048; 80053; 80061; 81001; 83605; 83735; 84484; 85025; 85610; 85730; 87040; 87086; 87400; 90686; 93005; 94640; 94664; 96374; 96375; 97161; J0456; J0696; J1650; J2920; J7050; Q9967

== ENCOUNTER 2019-03-24 07:15 | Emergency (ER) | payer MEDICARE, OTHER ==
[~2019-03-24] VITALS: Ht 165.1 cm; Wt 80.0 kg
[~2019-03-24 07:15] MED LIST changes: -APIX5TAB PO; -DOXY100T20 PO; +MED4DP PO
[2019-03-24 07:24] VITALS: BP 149/66; PULSE 77; RESP 18; Ht 165.1 cm; Wt 80.0 kg
[2019-03-24] MEDS ORDERED: morphine 2 MG INJ IV STA (07:36)
[2019-03-24] MEDS ORDERED: ONDANSETRON 4 MG INJ IV STA (07:36)
[2019-03-24] MEDS ORDERED: IPRATROPIUM (NEB) 0.5 MG/2.5 ML AMP NEB STA (08:10)
[2019-03-24] MEDS ORDERED: ALBUTEROL 0.083% (NEB) 2.5 MG/3 ML AMP NEB STA (08:10)
--- NOTE | 2019-03-24 08:47 | ERD ---
ER Documentation Chief Complaint Chief Complaint BIB RA FOR EVAL OF MECHANICAL FALL. C/O RT HIP AND SIDE PAIN. NO DEFORMITIE HPI This is a very pleasant 83-year-old female that is currently on hospice who resides at home with her family. The patient indicated today she had a mechanical trip and fall while attempting to get in bed. She landed on her right hip and right chest wall. She is complaining of pain over her right hip. She also complains of pain on her right rib cage. The patient has a history of COPD on home oxygen. She did not hit her head. She is on Eliquis she is had a previous history of a pulmonary embolism. She denies a headache or neck pain. She denies any lower abdominal pain. ROS All systems reviewed and are negative except as per history of present illness. Medications Home Meds Active Scripts Methylprednisolone* (Medrol* DOSE PACK) 4 Mg/Dose-Pack Tab.ds.pk, 4 MG PO . DIRECTED, #1 PACKET Prov:DORENE AGUIRRE 01/18/19 Allergies Allergies: Coded Allergies: No Known Allergy (Unverified , 08/21/18) PMhx/Soc History of Surgery: Yes Anesthesia Reaction: No Hx Neurological Disorder: No Hx Respiratory Disorders: Yes (SOB, hypoxia) Hx Cardiac Disorders: No Hx Psychiatric Problems: No Hx Miscellaneous Medical Probl: No Hx Alcohol Use: No Hx Substance Use: No Hx Tobacco Use: No Physical Exam Vitals Vital Signs Date Temp Pulse Resp B/P (MAP) Pulse Ox O2 O2 Flow FiO2 Time Delivery Rate 03/24/19 90 20 97 Nasal 2.0 08:40 Cannula 03/24/19 97 2.0 08:38 03/24/19 99.7 77 18 149/66 99 07:24 (93) Physical Exam Constitutional:Well-developed. Well-nourished. Patient in mild respiratory di stress HEENT:Normocephalic. Atraumatic.Pupils were equal round reactive to light. Moist mucous membranes.No tonsillar exudates. Neck: No nuchal rigidity. No lymphadenopathy. No posterior cervical spine tenderness or step-offs. Respiratory: Not using accessory muscles of respiration.Lungs were clear to auscultation bilaterally. No rhonchi. No rales. Bilateral wheezing Cardiovascular: Regular rate regular rhythm.No murmurs. No rubs were appreciated.S1, S2 normal. Distal pulses are palpable 2+ bilaterally. No crepitus no ecchymosis no flail chest. Tenderness over the lateral right rib cage. GI: Abdomen was soft. Nontender. Non Distended. No pulsatile abdominal masses or bruits. No rebound. No guarding. Bowel sounds were present and normal. No flank ecchymosis. Muscle skeletal: Full range of motion of both the upper and lower extremities bilaterally.Normal muscle tone.No assymetrical calf tenderness or swelling. Lower extremities are of equal length and symmetrical no internal or external rotation. Tenderness of the right anterior superior iliac spine. Patient able to ambulate and bear weight more than 4 steps in the emergency department. Skin: No petechia, no purpura. No lesions on the palms or the soles of the feet. No maculopapular rash. NEURO: Patient was alert, awake, orientated x3.No facial droop. Gait observed and normal with no ataxia.Speech had regular rate and rhythm. No focal neurological deficits. Result Diagram: 03/24/19 0800 03/24/19 0800 Results 24 hrs Laboratory Tests Test 03/24/19 08:00 White Blood Count 6.6 10^3/ul Red Blood Count 4.18 10^6/ul Hemoglobin 11.9 g/dl Hematocrit 41.1 % Mean Corpuscular Volume 98.3 fl Mean Corpuscular Hemoglobin 28.5 pg Mean Corpuscular Hemoglobin Concent 29.0 g/dl Red Cell Distribution Width 13.2 % Platelet Count 242 10^3/UL Mean Platelet Volume 8.7 fl Immature Granulocytes % 0.500 % Neutrophils % 68.4 % Lymphocytes % 23.7 % Monocytes % 5.3 % Eosinophils % 1.5 % Basophils % 0.6 % Nucleated Red Blood Cells % 0.0 /100WBC Immature Granulocytes # 0.030 10^3/ul Neutrophils # 4.5 10^3/ul Lymphocytes # 1.6 10^3/ul Monocytes # 0.4 10^3/ul Eosinophils # 0.1 10^3/ul Basophils # 0.0 10^3/ul Nucleated Red Blood Cells # 0.0 10^3/ul Prothrombin Time 12.6 Sec Prothrombin Time Ratio 1.0 INR International Normalized Ratio 0.93 Activated Partial Thromboplast Time 25.8 Sec Sodium Level 142 mmol/L Potassium Level 4.6 mmol/L Chloride Level 102 mmol/L Carbon Dioxide Level 38 mmol/L Anion Gap 2 Blood Urea Nitrogen 17 mg/dl Creatinine 0.67 mg/dl Est Glomerular Filtrat Rate mL/min mL/min Glucose Level 105 mg/dl Calcium Level 9.0 mg/dl Total Bilirubin 0.4 mg/dl Direct Bilirubin 0.00 mg/dl Indirect Bilirubin 0.4 mg/dl Aspartate Amino Transf (AST/SGOT) 19 IU/L Alanine Aminotransferase (ALT/SGPT) 25 IU/L Alkaline Phosphatase 82 IU/L Total Protein 7.1 g/dl Albumin 3.8 g/dl Globulin 3.30 g/dl Albumin/Globulin Ratio 1.15 Triglycerides Level 175 mg/dl Cholesterol Level 208 mg/dl LDL Cholesterol, Calculated 112 mg/dl HDL Cholesterol 61 mg/dl Cholesterol/HDL Ratio 3.4 RATIO Current Medications Medications Dose Sig/Jennifer Start Time Status Last (Trade) Ordered Route PRN Stop Time Admin Dose Reason Admin Morphine 2 mg ONCE STAT 03/24/19 DC 03/24/19 Sulfate IV 07:36 07:53 (morphine) 03/24/19 07:38 Ondansetron 4 mg ONCE STAT 03/24/19 DC 03/24/19 HCl (Zofran IV 07:36 07:53 Inj) 03/24/19 07:38 Albuterol 5 mg ONCE STAT 03/24/19 DC 03/24/19 (Proventil NEB 08:10 08:37 0.083% (Neb)) 03/24/19 08:11 Ipratropium 0.5 mg ONCE STAT 03/24/19 DC 03/24/19 [place]rosse NEB 08:10 08:36 (Atrovent 03/24/19 08:11 0.02% (Neb)) Procedures/MDM This is a very pleasant 83-year-old female with a known history of COPD. The patient is on home oxygen at night and as needed. When she initially arrived into the emergency department she was hypoxic satting 85% but did not come with her home oxygen. She was immediately placed on low flow supplemental nasal cannula 2 L. Her pulse ox improved to 99%. She was given a nebulizer treatment as she had wheezing bilaterally which was thought to be secondary to a COPD exacerbation. After which she was reevaluated her wheezing had completely resolved. I obtained a chest radiograph and there is no evidence of pneumothorax or rib fracture as the patient did have tenderness over the lateral right rib cage. In addition I obtained radiographic imaging the patient's right hip and there was no underlying fracture. Patient was able to ambulate without any difficulty. There is no severe left leg abnormalities. I did feel that the patient could be safely discharged home as this did appear to be muscle skeletal from a rib injury and right hip sprain. Family was at bedside and they felt comfortable with the patient being discharged home as they do have good home health care as she is in hospice. She did receive intravenous morphine and Zofran for analgesic control. The patient was discharged home in fair condition. They were instructed to return to the emergency department at any time if there was any worsening of their condition. The patient stated they would follow up with their PCP in the next 24-48 hours to initiate a suitable medication regimen under the care of their PCP as well as to allow their PCP to monitor any drug reactions. The patient was discharged home with prescriptions after they gave informed consent to the new medication. They were also fully informed by myself on the adverse effects and adverse drug interactions in order to provide adequate safeguards to prevent possible adverse reactions to medications. Departure Diagnosis: Primary Impression: Fall Encounter type: initial encounter Qualified Codes: W19.XXXA - Unspecified fall, initial encounter Additional Impressions: Rib injury Hip sprain Encounter type: initial encounter Laterality: right Qualified Codes: S73.101A - Unspecified sprain of right hip, initial encounter Condition: Fair CALEB AMADOR MD March 24, 2019 08:43
== END 2019-03-24 13:34 | disposition home or self-care (01) ==
LOC: E/R 07:15
DX: S73.101A Unspecified sprain of right hip, initial encounter (principal); J44.9 Chronic obstructive pulmonary disease, unspecified; W01.0XXA Fall on same level from slipping, tripping and stumbling without subsequent striking against object, initial encounter; Y92.009 Unspecified place in unspecified non-institutional (private) residence as the place of occurrence of the external cause
CPT/HCPCS: 71045; 73510; 80053; 80061; 85025; 85610; 85730; 94664; 96374; 96375; 99284; J2270; J2405